=== PATIENT | male | born 1985 | race Caucasian/White ===

== ENCOUNTER 2018-11-12 14:11 | Inpatient (IN) | payer MEDICAID, SELFPAY ==
[2018-11-12 14:38] VITALS: BMI 31.6; BMI 31.7
[2018-11-12 15:00] VITALS: BP 154/97; PULSE 110; RESP 18; TEMP 37.1
--- NOTE | 2018-11-12 15:28 | HP.PCM_ITS ---
Problem List (1) Acute alcohol withdrawal Status: Acute (2) Alcohol abuse Status: Chronic (3) GERD (gastroesophageal reflux disease) Status: Chronic (4) Depression Status: Chronic History of Present Illness Date of Admission: 11/12/18 Chief Complaint: Patient came to the [facility] office requesting admission for alcohol abuse detoxification. The patient is a 33 year old M with past medical history as mentioned above presented to the [facility] office today requesting admission for medical stabilization for acute alcohol withdrawal. Patient has been heavily drinking for many many years. He is states that he drinks around 1 gallon of vodka every day and sometimes, he mixed it with beer. His last drink was 2 days ago. His presenting symptoms were severe bad hand tremors, restless and anxiety as well as persistent nausea and vomiting. He stopped drinking Monday and since then, he has been having rapidly increasing bilateral hand tremors, associated with restlessness and anxiety and without aggravating or relieving factors. He reported persistent nausea and vomiting since Monday and he could not keep any food or liquid down to his stomach. He denied abdominal pain. He mentioned that he bought a house few months ago and since then, he has been alone at house and he has been drinking more heavily. Around 1 week ago, he was taken to the hospital because he was intoxicated and lost his consciousness, was admitted for 18 hours and then was discharged home. He denied use of recreational drugs. He is afebrile, heart rate was around 110 and blood pressure was stable. He was a direct admission and there was no blood work done at this time. He is being admitted for acute alcohol withdrawal for medical stabilization. Past Medical History Past Medical History (Chronic Problems): Chronic Problems Alcohol abuse (Chronic) GERD (gastroesophageal reflux disease) (Chronic) Depression (Chronic) Allergies No Known Allergies Allergy (Verified 11/12/18 14:40) Home Medications: Ambulatory Orders Medication Instructions Recorded Azithromycin 250 mg PO BID 11/12/18 Escitalopram Oxalate [Lexapro] 10 mg PO DAILY 11/12/18 Levocetirizine Dihydrochloride 5 mg PO DINNER 11/12/18 [Xyzal] Loratadine [Claritin] 10 mg PO DAILY 11/12/18 Pantoprazole Sodium [Protonix] 40 mg PO DAILY 11/12/18 Ranitidine [Zantac] 300 mg PO BID 11/12/18 traZODone [Desyrel] 50 mg PO QHS PRN 11/12/18 Surgical History: no surgical history Psychiatric History: Depression Lives: Alone Smoking Status: Current some day smoker Tobacco Use: Chew Alcohol: Heavy Drugs: None - *Family History Maternal History Items: - - No family history of hypertension, diabetes or CAD. Paternal History Items: No pertinent history Review of Systems Constitutional: Reports: Anorexia, Malaise. Denies: Chills, Fever, Weakness, Fatigue Eyes: Denies: Blurred vision, Double vision, Drainage, Redness HEENT: Denies: Difficulty Hearing, Ear Pain, Eye Pain, Nasal Congestion, Sore Throat Cardiovascular: Denies: Chest Pain, Chest Pressure, Chest Tightness, Orthopnea, Paroxysmal Noc. Dyspnea, Syncope Respiratory: Reports: Cough. Denies: Hemoptysis, Pleuritic Pain, Shortness of Breath, Sputum production, Wheezing Gastrointestinal: Reports: Nausea, Vomiting. Denies: Abdominal Pain, Constipation, Hematochezia, Melena Genitourinary: Denies: Dysuria, Frequency, Hematuria Musculoskeletal: Denies: Arm Pain, Back Pain, Foot Pain Skin: Denies: Dryness, Rash Neurological: Reports: Tremor. Denies: Balance problems, Double vision, Change in Speech, Slurred speech, Confusion, Focal weakness, Incoordination, Numbness Psychiatric: Reports: Anxiety, Depression VTE Information - Inpt Only VTE Present on Admission: No VTE Mechan Device Prophylaxis: None VTE Pharm Prophylaxis ordered?: No Patient Problems: Active and Suspected Problems Acute alcohol withdrawal (Acute) - Physical Exam General: Alert, Oriented x3, Cooperative, - - Slightly anxious and restless. HEENT: Atraumatic, PERRLA, EOMI, Normocephalic Oral: Moist Mucosa, No Gingival or Mucosal Lesions/ Ulcerations Neck: Supple, No JVD, Negative Carotid Bruits, Trachea Midline, Thyroid Normal Size and Texture Lungs: Clear to auscultation, Normal air movement, No rhonchi, No wheeze, No rales Cardiovascular: Regular rate, Regular Rhythm, Normal S1, Normal S2, PMI Normal Abdomen: Bowel Sounds Present, Soft, Non Tender, Non-Distended, No Hepato- splenomegaly Extremities: No clubbing, No cyanosis Skin: No rashes, No breakdown Lymphatic: No Cervical, Supraclavicular, or Inguinal Adenopathy Neurological: Cranial nerves II-XII grossly intact, Motor Exam 5/5 strength throughout Psych/Mental Status: Normal Affect, Appropriate, Anxious, Alert and oriented to time, place, person, mood and affect Vital Signs Temp Pulse Resp BP 98.8 F 110 H 18 154/97 H 11/12/18 15:00 11/12/18 15:00 11/12/18 15:00 11/12/18 15:00 Weight: 240 lb Body Mass Index (BMI) 31.6 Assessment/Plan All Active Problems Acute alcohol withdrawal (Acute) This is a 33 years old male patient presented to the [facility] office requesting admission for medical stabilization for acute alcohol withdrawal. #1 acute alcohol withdrawal: Patient has been drinking heavily every day, 1 gallon for Daily for many years. Last drink was 2 days ago. At this time, he is slightly tachycardic, other vital signs are stable. [facility], stat CBC and CMP, blood alcohol level, urine drug screen, serum lipase, start [facility] protocol with tapering course of Ativan, folic acid and thiamine as well as vitamin supplement, as needed Bentyl, Tylenol, Vistaril, Imodium, methocarbamol Zofran and trazodone, will do chest x-ray because of hacking cough for more than a week to rule out aspiration pneumonia as patient has been losing his consciousness because of heavy drinking. #2 alcohol abuse: As mentioned above, patient has been drinking heavily for 2 many years, drinks at least 1 gallon of vodka daily in addition to mixing it with beers. Plan as above, blood work as above, [facility] protocol as above. #3 GERD: Continue Protonix. #4 depression: Continue Lexapro. #5 DVT prophylaxis: Low-risk patient, no prophylaxis indicated. Ambulate. This note was generated with [employer] dictation software. It may contain incorrect words, spelling, and punctuation that were not noted in checking the note before signing. Code Visit Inpatient E&M: 60304 Init Hosp L2
[2018-11-12] MEDS: Ondansetron ODT 4 MG Tablet PO (15:33)
[2018-11-12] MEDS: Dicyclomine 10 MG Capsule 20 MG PO ×2 (15:33→22:10)
[2018-11-12] MEDS: LORazepam 1 MG Tablet PO ×2 (15:33→20:38)
[2018-11-12] MEDS: Methocarbamol 750 MG Tablet PO (15:33)
--- NOTE | 2018-11-12 15:50 | RAD_ITS ---
STUDY: X-RAY CHEST REASON FOR EXAM: Male, 33 years old. Cough, chest pain. TECHNIQUE: PA and lateral views of the chest. COMPARISON: None. FINDINGS: Incidental note of an azygos lobe in the medial right apex, an anatomic variant. The lungs are otherwise clear and expanded. There is no demonstrated pleural abnormality. Normal size heart. Normal mediastinum and ashanti. Normal visualized pulmonary arteries. Normal visualized aortic arch and descending thoracic aorta. Normal visualized thoracic spine. Normal visualized ribs, clavicles, and shoulders. There is no demonstrated abnormality of the visualized soft tissue structures of the upper abdomen. RAD/Chest PA and Lateral IMPRESSION: Normal x-ray examination of the chest. Electronically Signed: Manjit Bhatt MD at 19:39 EST , Service support ,
[2018-11-12 15:59] LABS: Absolute Lymphocyte Count 0.96 X10^3/ul (0.83-4.51); Absolute Neutrophil Count 5.2 X10^3/uL (2.0-7.7); Basophil# 0.01 X10^3/uL; Basophil% 0.1 % (0-1); Eosinophil# 0.14 X10^3/uL; Eosinophils% 2.1 % (0-5); Hematocrit 42.8 % (40-54); Hemoglobin 15.5 g/dl (13.0-16.5); Lymphocyte # 0.96 X10^3/ul (4.0); Lymphocyte % 14.2 % (19-41); Mean Corp Hgb Conc 36.2 g/gl (32-36); Mean Corpuscular Hgb 31.8 pg (27.0-32.0); Mean Corpuscular Volume 87.9 fL (80-94); Mean Platelet Vol. 9.6 fl (6.2-12.0); Monocyte# 0.42 X10^3/uL; Monocyte% 6.2 % (0-10); Neutrophil # 5.19 X10^3/uL (2.7-7.7); Neutrophil % 77.1 % (47-70); Platelet Count 146 K/mm3 (150-450); RBC Distribution Width SD 39.8 fl (35.1-43.9); Red Blood Count 4.87 M/mm3 (4.6-6.2); White Blood Count 6.7 K/mm3 (4.4-11.0)
[2018-11-12 16:01] LABS: POSITIVE COUNT NO; POSITIVE DIFFERENTIAL NO; POSITIVE MORPHOLOGY NO
[2018-11-12 16:14] LABS: Prothrombin Time (Protime)PT. 13.2 SECONDS (11.7-14.9)
[2018-11-12 16:29] LABS: Alcohol, Blood (Medical)-Serum < 3.0 mg/dL
[2018-11-12 16:32] LABS: ALB/GLOB Ratio 1.3 RATIO (0.9-2.4); AST(SGOT) 77 U/L (15-37); Alanine Aminotransfer ALT/SGPT 145 U/L (16-61); Albumin, Serum 4.7 g/dL (3.2-5.0); Alkaline Phosphatase 125 U/L (45-117); Anion Gap 10 (5-15); BUN 7 mg/dL (7-18); BUN/Creat Ratio 7.4 RATIO (10-20); Calcium,Total 9.1 mg/dL (8.5-10.1); Chloride 98 mmol/L (98-107); Creatinine, Serum 0.95 mg/dL (0.70-1.30); EST Glomerular Filtration Rate 96 mL/min (>60); Est Glom Filt Rate - Afr Amer 117 mL/min (>60); Estimated Creatinine Clearance 123.82 ml/min; Globulin 3.7 g/dL (2.2-4.2); Glucose 100 mg/dL (74-106); Lipase 196 U/L (73-393); Potassium 3.5 mmol/L (3.5-5.1); Protein, Total 8.4 g/dL (6.4-8.2); Sodium Level 137 mmol/L (136-145)
[2018-11-12 17:49] VITALS: PULSE 76
[2018-11-12] MEDS: Famotidine 20 MG Tablet 40 MG PO (18:15)
[2018-11-12 18:38] VITALS: BP 124/80; PULSE 86; RESP 18; TEMP 37.1
[2018-11-12 18:39] LABS: Amphetamine Urine VISTA NEGATIVE (<1000 ng/mL); Barbiturate Urine VISTA NEGATIVE (< 200 ng/mL); Benzodiazepine Urine VISTA NEGATIVE (< 200 ng/mL); Cocaine Urine VISTA NEGATIVE (< 300 ng/mL); Ecstacy Urine VISTA NEGATIVE (< 500 ng/mL); Methadone Urine VISTA NEGATIVE (< 300 ng/mL); PCP Urine VISTA NEGATIVE (< 25 ng/mL); THC Urine VISTA NEGATIVE (< 50 ng/mL); Vista UDS pH Range 6
[2018-11-12 19:57] VITALS: PULSE 66
[2018-11-12 21:01] VITALS: BP 152/103; PULSE 75; RESP 14; TEMP 37.3; O2SAT 98
[2018-11-13] VITALS (10 sets, daily range): BP systolic 133–146; BP diastolic 92–101; PULSE 57–103; RESP 16–18; TEMP 36.3–36.9; O2SAT 98–100
[2018-11-13] MEDS: LORazepam 1 MG Tablet PO ×6 (00:01→23:50)
[2018-11-13] MEDS: Folic Acid 1 MG Tablet PO (09:21)
[2018-11-13] MEDS: Multivitamins,Therapeutic Tablet 1 TABLET PO (09:21)
[2018-11-13] MEDS: Famotidine 20 MG Tablet 40 MG PO ×2 (09:23→23:50)
[2018-11-13] MEDS: Thiamine Hydrochloride 100 MG Tablet PO (09:23)
[2018-11-13] MEDS: Loratadine 10 MG Tablet PO (09:23)
[2018-11-13] MEDS: Escitalopram Oxalate 10 MG Tablet PO (09:23)
[2018-11-13] MEDS: Pantoprazole Sodium 40 MG Tablet PO (09:31)
--- NOTE | 2018-11-13 10:04 | PCM.PN.HOSP ---
Patient Problems: Active and Suspected Problems Acute alcohol withdrawal (Acute) Subjective: Patient seen and examined. She was admitted complaint of alcohol abuse and is being managed for acute alcohol withdrawal. He has no complaints this morning. He did have some visual and tactile hallucinations overnight but is much better this morning. His tremors have also improved. Denies any fever chills, cough or chest pain, palpitations, abdominal pain, diarrhea vomiting. Review of systems otherwise negative. CIWA score this morning was 5. Vitals/I&O's: Vital Signs Temp Pulse Resp BP Pulse Ox 98.5 F 103 H 18 133/101 H 98 11/13/18 09:06 11/13/18 09:06 11/13/18 09:06 11/13/18 09:06 11/13/18 09:05 Oxygen Delivery Method Room Air Weight: 240 lb Body Mass Index (BMI) 31.6 Intake and Output for Last 24 Hours 11/11/18 11/12/18 11/13/18 23:59 23:59 23:59 Intake Total 200 / 200 560 / 560 Balance 200 / 200 560 / 560 General: Alert, Oriented x3, Cooperative, No apparent distress HEENT: Atraumatic, PERRLA, EOMI, Normocephalic Oral: Moist Mucosa Neck: Supple, No JVD, Negative Carotid Bruits Lungs: Clear to auscultation, Normal air movement, No rhonchi, No wheeze, No rales Cardiovascular: Regular rate, Regular Rhythm, Normal S1, Normal S2, No murmurs Abdomen: Bowel Sounds Present, Soft, Non Tender, Non-Distended, No Hepato-splenomegaly Extremities: No clubbing, No cyanosis, No edema, Capillary Refill Less than 3 Seconds Skin: No rashes, No breakdown Musculoskeletal: No Tenderness to Palpation of Joints or Extremities Lymphatic: No Cervical, Supraclavicular, or Inguinal Adenopathy Neurological: Cranial nerves II-XII grossly intact, Neuro grossly intact, Motor Exam 5/5 strength throughout Psych/Mental Status: Normal Affect, Appropriate, Alert and oriented to time, place, person, mood and affect Laboratory Results 11/12/18 15:38: WBC 6.7, RBC 4.87, Hgb 15.5, Hct 42.8, MCV 87.9, MCH 31.8, MCHC 36.2 H, RDW 13.0, RDW Differential 39.8, Plt Count 146 L, MPV 9.6, Immature Gran % (Auto) 0.300, Neut % (Auto) 77.1 H, Lymph % (Auto) 14.2 L, [place] % (Auto) 6.2, Eos % (Auto) 2.1, Baso % (Auto) 0.1, Absolute Neuts (auto) 5.2, Absolute Lymphs (auto) 0.96, Total Counted Not Reportable 11/12/18 15:38: PT 13.2, INR 1.0 11/12/18 15:38: Sodium 137, Potassium 3.5, Chloride 98, Carbon Dioxide 29.0, Anion Gap 10, BUN 7, Creatinine 0.95, Estim Creat Clear Calc 123.82, Est GFR (MDRD) Af Amer 117, Est GFR (MDRD) Non-Af 96, BUN/Creatinine Ratio 7.4 L, Glucose 100, Calcium 9.1, Total Bilirubin 1.70 H, AST 77 H, ALT 145 H, Alkaline Phosphatase 125 H, Total Protein 8.4 H, Albumin 4.7, Globulin 3.7, Albumin/Globulin Ratio 1.3, Lipase 196 11/12/18 15:38: Ethyl Alcohol < 3.0 11/12/18 17:50: Urine Opiates Screen NEGATIVE, Urine Methadone Screen NEGATIVE, Ur Barbiturates Screen NEGATIVE, Ur Phencyclidine Scrn NEGATIVE, Ur Amphetamines Screen NEGATIVE, U Methamphetamin-MDMA NEGATIVE, U Benzodiazepines Scrn NEGATIVE, Urine Cocaine Screen NEGATIVE, U Cannabinoids Screen NEGATIVE, Ur Drug Screen Comment Current Medications Acetaminophen (Tylenol) 500 mg PO Q4H PRN PRN PRN Reason: Temp > 100.4 F Dicyclomine HCl (Bentyl) 20 mg PO Q6H PRN PRN PRN Reason: abdominal discomfort Last Admin: 11/12/18 22:10 Dose: 20 mg Escitalopram Oxalate (Lexapro) 10 mg PO DAILY [facility] Last Admin: 11/13/18 09:23 Dose: 10 mg Famotidine (Pepcid) 40 mg PO BID [facility] Last Admin: 11/13/18 09:23 Dose: 40 mg [facility] Last Admin: 11/13/18 09:21 Dose: 1 mg Hydroxyzine Pamoate (Vistaril Pamoate Capsule) 50 mg PO Q6H PRN PRN PRN Reason: Mild Anxiety (score 1/3) Loperamide HCl (Imodium) 2 - 4 mg PO UD PRN PRN Reason: LOOSE STOOLS Loratadine (Claritin) 10 mg PO DAILY [facility] Last Admin: 11/13/18 09:23 Dose: 10 mg Lorazepam (Ativan) 1 mg PO Q4H [facility]; Taper Stop: 11/15/18 19:59 Last Admin: 11/13/18 09:23 Dose: 1 mg Methocarbamol (Methocarbamol) 750 mg PO Q6H PRN PRN PRN Reason: Muscle Aches Last Admin: 11/12/18 15:33 Dose: 750 mg Multivitamins (Multivitamin) [facility] Last Admin: 11/13/18 09:21 Dose: 1 tablet Nicotine (Nicoderm Cq (Pbkc)) 21 mg TRANSDERM. DAILY [facility] Last Admin: 11/13/18 09:21 Dose: 21 mg Ondansetron HCl (Zofran Odt) 4 mg PO Q6H PRN PRN PRN Reason: NAUSEA Last Admin: 11/12/18 15:33 Dose: 4 mg Pantoprazole Sodium (Protonix) 40 mg PO DAILY [facility] Last Admin: 11/13/18 09:31 Dose: 40 mg Thiamine HCl (Vitamin B1) [facility] Last Admin: 11/13/18 09:23 Dose: 100 mg Trazodone HCl (Desyrel) 50 mg PO QHS PRN PRN Reason: SLEEP Medical Necessity - Tobacco Use Smoking Status: Current some day smoker Tobacco Use: Chew Assessment/Plan All Active Problems Acute alcohol withdrawal (Acute) 1. Acute alcohol withdrawal Drinks about a gallon of vodka daily for many years. Last drink was 2 days prior to presentation. On alcohol withdrawal protocol with Ativan per [facility] protocol. On folic acid and thiamine as well as multivitamin. 2. GERD: Protonix 3. Depression: On Lexapro 4. Elevated liver enzymes. Total bilirubin was 1.7 with AST/ALT/ALP of 77/145/125. Likely due to alcohol abuse. Will monitor. 5. Thrombocytopenia: Platelets of 146. There is also likely due to alcohol abuse. Will monitor. DVT prophylaxis: Encourage ambulation. Code Visit Inpatient E&M: 16150 Subs Hosp L3
--- NOTE | 2018-11-13 10:09 | PN_ITS ---
Patient Problems: Active and Suspected Problems Acute alcohol withdrawal (Acute) Subjective: Patient seen and examined. She was admitted complaint of alcohol abuse and is being managed for acute alcohol withdrawal. He has no complaints this morning. He did have some visual and tactile hallucinations overnight but is much better this morning. His tremors have also improved. Denies any fever chills, cough or chest pain, palpitations, abdominal pain, diarrhea vomiting. Review of systems otherwise negative. CIWA score this morning was 5. Vitals/I&O's: Vital Signs Temp Pulse Resp BP Pulse Ox 98.5 F 103 H 18 133/101 H 98 11/13/18 09:06 11/13/18 09:06 11/13/18 09:06 11/13/18 09:06 11/13/18 09:05 Oxygen Delivery Method Room Air Weight: 240 lb Body Mass Index (BMI) 31.6 Intake and Output for Last 24 Hours 11/11/18 11/12/18 11/13/18 23:59 23:59 23:59 Intake Total 200 / 200 560 / 560 Balance 200 / 200 560 / 560 General: Alert, Oriented x3, Cooperative, No apparent distress HEENT: Atraumatic, PERRLA, EOMI, Normocephalic Oral: Moist Mucosa Neck: Supple, No JVD, Negative Carotid Bruits Lungs: Clear to auscultation, Normal air movement, No rhonchi, No wheeze, No rales Cardiovascular: Regular rate, Regular Rhythm, Normal S1, Normal S2, No murmurs Abdomen: Bowel Sounds Present, Soft, Non Tender, Non-Distended, No Hepato- splenomegaly Extremities: No clubbing, No cyanosis, No edema, Capillary Refill Less than 3 Seconds Skin: No rashes, No breakdown Musculoskeletal: No Tenderness to Palpation of Joints or Extremities Lymphatic: No Cervical, Supraclavicular, or Inguinal Adenopathy Neurological: Cranial nerves II-XII grossly intact, Neuro grossly intact, Motor Exam 5/5 strength throughout Psych/Mental Status: Normal Affect, Appropriate, Alert and oriented to time, place, person, mood and affect Laboratory Results 11/12/18 15:38: WBC 6.7, RBC 4.87, Hgb 15.5, Hct 42.8, MCV 87.9, MCH 31.8, MCHC 36.2 H, RDW 13.0, RDW Differential 39.8, Plt Count 146 L, MPV 9.6, Immature Gran % (Auto) 0.300, Neut % (Auto) 77.1 H, Lymph % (Auto) 14.2 L, [place] % (Auto) 6.2, Eos % (Auto) 2.1, Baso % (Auto) 0.1, Absolute Neuts (auto) 5.2, Absolute Lymphs (auto) 0.96, Total Counted Not Reportable 11/12/18 15:38: PT 13.2, INR 1.0 11/12/18 15:38: Sodium 137, Potassium 3.5, Chloride 98, Carbon Dioxide 29.0, Anion Gap 10, BUN 7, Creatinine 0.95, Estim Creat Clear Calc 123.82, Est GFR (MDRD) Af Amer 117, Est GFR (MDRD) Non-Af 96, BUN/Creatinine Ratio 7.4 L, Glucose 100, Calcium 9.1, Total Bilirubin 1.70 H, AST 77 H, ALT 145 H, Alkaline Phosphatase 125 H, Total Protein 8.4 H, Albumin 4.7, Globulin 3.7, Albumin/Globulin Ratio 1.3, Lipase 196 11/12/18 15:38: Ethyl Alcohol < 3.0 11/12/18 17:50: Urine Opiates Screen NEGATIVE, Urine Methadone Screen NEGATIVE, Ur Barbiturates Screen NEGATIVE, Ur Phencyclidine Scrn NEGATIVE, Ur Amphetamines Screen NEGATIVE, U Methamphetamin-MDMA NEGATIVE, U Benzodiazepines Scrn NEGATIVE, Urine Cocaine Screen NEGATIVE, U Cannabinoids Screen NEGATIVE, Ur Drug Screen Comment Current Medications Acetaminophen (Tylenol) 500 mg PO Q4H PRN PRN PRN Reason: Temp > 100.4 F Dicyclomine HCl (Bentyl) 20 mg PO Q6H PRN PRN PRN Reason: abdominal discomfort Last Admin: 11/12/18 22:10 Dose: 20 mg Escitalopram Oxalate (Lexapro) 10 mg PO DAILY [facility] Last Admin: 11/13/18 09:23 Dose: 10 mg Famotidine (Pepcid) 40 mg PO BID [facility] Last Admin: 11/13/18 09:23 Dose: 40 mg [facility]) [facility] Last Admin: 11/13/18 09:21 Dose: 1 mg Hydroxyzine Pamoate (Vistaril Pamoate Capsule) 50 mg PO Q6H PRN PRN PRN Reason: Mild Anxiety (score 1/3) Loperamide HCl (Imodium) 2 - 4 mg PO UD PRN PRN Reason: LOOSE STOOLS Loratadine (Claritin) 10 mg PO DAILY [facility] Last Admin: 11/13/18 09:23 Dose: 10 mg Lorazepam (Ativan) 1 mg PO Q4H [facility]; Taper Stop: 11/15/18 19:59 Last Admin: 11/13/18 09:23 Dose: 1 mg Methocarbamol (Methocarbamol) 750 mg PO Q6H PRN PRN PRN Reason: Muscle Aches Last Admin: 11/12/18 15:33 Dose: 750 mg Multivitamins (Multivitamin) [facility] Last Admin: 11/13/18 09:21 Dose: 1 tablet Nicotine (Nicoderm Cq (Pbkc)) 21 mg TRANSDERM. DAILY [facility] Last Admin: 11/13/18 09:21 Dose: 21 mg Ondansetron HCl (Zofran Odt) 4 mg PO Q6H PRN PRN PRN Reason: NAUSEA Last Admin: 11/12/18 15:33 Dose: 4 mg Pantoprazole Sodium (Protonix) 40 mg PO DAILY [facility] Last Admin: 11/13/18 09:31 Dose: 40 mg Thiamine HCl (Vitamin B1) [facility] Last Admin: 11/13/18 09:23 Dose: 100 mg Trazodone HCl (Desyrel) 50 mg PO QHS PRN PRN Reason: SLEEP Medical Necessity - Tobacco Use Smoking Status: Current some day smoker Tobacco Use: Chew Assessment/Plan All Active Problems Acute alcohol withdrawal (Acute) 1. Acute alcohol withdrawal * Drinks about a gallon of vodka daily for many years. Last drink was 2 days prior to presentation. * On alcohol withdrawal protocol with Ativan per [facility] protocol. * On folic acid and thiamine as well as multivitamin. * 2. GERD: Protonix 3. Depression: On Lexapro 4. Elevated liver enzymes. * Total bilirubin was 1.7 with AST/ALT/ALP of 77/145/125. * Likely due to alcohol abuse. * Will monitor. 5. Thrombocytopenia: * Platelets of 146. * There is also likely due to alcohol abuse. * Will monitor. DVT prophylaxis: Encourage ambulation. Code Visit Inpatient E&M: 23745 Subs Hosp L3
[2018-11-14] VITALS (7 sets, daily range): BP systolic 130–142; BP diastolic 91–97; PULSE 75–100; RESP 14–18; TEMP 36.7–36.8; O2SAT 95–97
[2018-11-14] MEDS: Methocarbamol 750 MG Tablet PO ×4 (03:20→22:31)
[2018-11-14] MEDS: LORazepam 1 MG Tablet PO ×3 (06:16→19:55)
[2018-11-14] MEDS: Escitalopram Oxalate 10 MG Tablet PO (09:31)
[2018-11-14] MEDS: Famotidine 20 MG Tablet 40 MG PO ×2 (09:31→22:31)
[2018-11-14] MEDS: Thiamine Hydrochloride 100 MG Tablet PO (09:32)
[2018-11-14] MEDS: Pantoprazole Sodium 40 MG Tablet PO (09:32)
[2018-11-14] MEDS: Loratadine 10 MG Tablet PO (09:32)
[2018-11-14] MEDS: Folic Acid 1 MG Tablet PO (09:32)
[2018-11-14] MEDS: Multivitamins,Therapeutic Tablet 1 TABLET PO (09:33)
[2018-11-14] MEDS: hydrOXYzine PAM 25 MG Capsule 50 MG PO ×2 (09:37→22:42)
--- NOTE | 2018-11-14 10:51 | PN_ITS ---
Patient Problems: Active and Suspected Problems Acute alcohol withdrawal (Acute) Subjective: Patient seen and examined. He had no complaints and had a good night. He denies any fever or chills, palpitations or dizziness, abdominal pain, diarrhea vomiting. Review of systems otherwise negative. Labs and vitals reviewed. Vitals/I&O's: Vital Signs Temp Pulse Resp BP Pulse Ox 98.1 F 87 18 142/95 H 97 11/14/18 09:35 11/14/18 09:35 11/14/18 09:35 11/14/18 09:35 11/14/18 09:35 Oxygen Delivery Method Room Air Weight: 240 lb Body Mass Index (BMI) 31.6 Intake and Output for Last 24 Hours 11/12/18 11/13/18 11/14/18 23:59 23:59 23:59 Intake Total 200 / 200 1860 / 1860 720 / 720 Balance 200 / 200 1860 / 1860 720 / 720 General: Alert, Oriented x3, Cooperative, No apparent distress HEENT: Atraumatic, PERRLA, EOMI, Normocephalic Oral: Moist Mucosa Neck: Supple, No JVD, Negative Carotid Bruits Lungs: Clear to auscultation, Normal air movement, No rhonchi, No wheeze, No rales Cardiovascular: Regular rate, Regular Rhythm, Normal S1, Normal S2, No murmurs Abdomen: Bowel Sounds Present, Soft, Non Tender, Non-Distended, No Hepato- splenomegaly Extremities: No clubbing, No cyanosis, No edema, Capillary Refill Less than 3 Seconds Skin: No rashes, No breakdown Musculoskeletal: No Tenderness to Palpation of Joints or Extremities Lymphatic: No Cervical, Supraclavicular, or Inguinal Adenopathy Neurological: Cranial nerves II-XII grossly intact, Neuro grossly intact, Motor Exam 5/5 strength throughout Psych/Mental Status: Normal Affect, Appropriate, Alert and oriented to time, place, person, mood and affect Current Medications Acetaminophen (Tylenol) 500 mg PO Q4H PRN PRN PRN Reason: Temp > 100.4 F Dicyclomine HCl (Bentyl) 20 mg PO Q6H PRN PRN PRN Reason: abdominal discomfort Last Admin: 11/12/18 22:10 Dose: 20 mg Escitalopram Oxalate (Lexapro) 10 mg PO DAILY [facility] Last Admin: 11/14/18 09:31 Dose: 10 mg Famotidine (Pepcid) 40 mg PO BID [facility] Last Admin: 11/14/18 09:31 Dose: 40 mg [facility]olic [facility] ([facility]) [facility] Last Admin: 11/14/18 09:32 Dose: 1 mg Hydroxyzine Pamoate (Vistaril Pamoate Capsule) 50 mg PO Q6H PRN PRN PRN Reason: Mild Anxiety (score 1/3) Last Admin: 11/14/18 09:37 Dose: 50 mg Loperamide HCl (Imodium) 2 - 4 mg PO UD PRN PRN Reason: LOOSE STOOLS Loratadine (Claritin) 10 mg PO DAILY [facility] Last Admin: 11/14/18 09:32 Dose: 10 mg Lorazepam (Ativan) 1 mg PO Q6H [facility]; Taper Stop: 11/15/18 19:59 Last Admin: 11/14/18 06:16 Dose: 1 mg Methocarbamol (Methocarbamol) 750 mg PO Q6H PRN PRN PRN Reason: Muscle Aches Last Admin: 11/14/18 09:36 Dose: 750 mg Multivitamins ([facility]itamin) [facility] Last Admin: 11/14/18 09:33 Dose: 1 tablet Nicotine (Nicoderm Cq (Pbkc)) 21 mg TRANSDERM. DAILY [facility] Last Admin: 11/14/18 09:33 Dose: 21 mg Ondansetron HCl (Zofran Odt) 4 mg PO Q6H PRN PRN PRN Reason: NAUSEA Last Admin: 11/12/18 15:33 Dose: 4 mg Pantoprazole Sodium (Protonix) 40 mg PO DAILY [facility] Last Admin: 11/14/18 09:32 Dose: 40 mg Thiamine HCl (Vitamin B1) [facility] Last Admin: 11/14/18 09:32 Dose: 100 mg Trazodone HCl (Desyrel) 50 mg PO QHS PRN PRN Reason: SLEEP Medical Necessity - Tobacco Use Smoking Status: Current some day smoker Tobacco Use: Chew Assessment/Plan All Active Problems Acute alcohol withdrawal (Acute) 1. Acute alcohol withdrawal * Drinks about a gallon of vodka daily for many years. * On alcohol withdrawal protocol with Ativan per [facility] protocol. * On folic acid and thiamine as well as multivitamin. * 2. Elevated blood pressure: * Blood pressure was in the 150s on admission but it was thought to be due to alcohol withdrawal. * Went down to 120 systolic but has been in the 130s and 140s since. * Has no history of hypertension. * Will monitor and to follow-up with primary care doctor on outpatient basis for start of medication if blood pressure still elevated in the office. * 3. GERD: on Protonix 4. Depression: On Lexapro 5. Elevated liver enzymes. * Total bilirubin was 1.7 with AST/ALT/ALP of 77/145/125. * Likely due to alcohol abuse. * Will monitor. 6. Thrombocytopenia: * Platelets of 146. * There is also likely due to alcohol abuse. * Will monitor. DVT prophylaxis: Encourage ambulation. Code Visit Inpatient E&M: 06812 Subs Hosp L2
[2018-11-14] MEDS: guaiFENesin 600 MG Tablet PO ×2 (12:18→22:31)
[2018-11-14] MEDS: Acetaminophen 500 MG Tablet PO (20:01)
[2018-11-15] MEDS: LORazepam 1 MG Tablet PO ×2 (04:23→11:24)
[2018-11-15 07:41] VITALS: BP 133/94; PULSE 63; RESP 16; TEMP 36.8; O2SAT 98
[2018-11-15] MEDS: Folic Acid 1 MG Tablet PO (07:55)
[2018-11-15] MEDS: Multivitamins,Therapeutic Tablet 1 TABLET PO (07:55)
[2018-11-15] MEDS: Thiamine Hydrochloride 100 MG Tablet PO (07:55)
--- NOTE | 2018-11-15 10:19 | DCINST_ITS ---
- Discharge Diagnoses Current Active Problems: Current Active and Chronic Problems Acute alcohol withdrawal (Acute) Alcohol abuse (Chronic) GERD (gastroesophageal reflux disease) (Chronic) Depression (Chronic) You will use the following diet at home:: No restrictions Your food should be the consistency of: Regular Your liquids should be the consistency of: Regular/Thin Discharge Activity: Return to Normal Activity Weight Bearing Status: Weight bearing as tolerated Instructions: Disulfiram Oral tablet Allergies/Adverse Reactions: Allergies No Known Allergies Allergy (Verified 11/12/18 14:40) Medications to take at Discharge Escitalopram Oxalate [Lexapro] 10 mg PO DAILY 11/12/18 Levocetirizine Dihydrochloride [Xyzal] 5 mg PO DINNER 11/12/18 Loratadine [Claritin] 10 mg PO DAILY 11/12/18 Pantoprazole Sodium [Protonix] 40 mg PO DAILY 11/12/18 Ranitidine [Zantac] 300 mg PO BID 11/12/18 traZODone [Desyrel] 50 mg PO QHS PRN 11/12/18 Disulfiram [Antabuse] 250 mg PO DAILY #14 tab 11/15/18 Guaifenesin [Mucinex] 600 mg PO Q12H PRN PRN #30 tab.er.12h 11/15/18 The following prescriptions were given: Guaifenesin [Mucinex] 600 mg PO Q12H PRN PRN #30 tab.er.12h PRN Reason: Chest Congestion/Secretions Disulfiram [Antabuse] 250 mg PO DAILY #14 tab Primary Care Physician: Ganga Kuhn,Out of [Primary Care Provider] - Please follow up with your Primary Care Physician in: follow with your PCP within 1-2 weeks Test Results: Test results from this visit will be discussed in further detail at your follow- up appointment, if applicable. Proposed Discharge Date: 11/15/18
--- NOTE | 2018-11-15 10:19 | PCM.DC.SUM ---
Discharge Date and Diagnosis - Problem List Patient Problems: Active and Suspected Problems Acute alcohol withdrawal (Acute) Date of Admission: 11/12/18 Date of Discharge: 11/15/18 - Primary Discharge Diagnosis Active and Suspected Problems Acute alcohol withdrawal (Acute) - Secondary Discharge Diagnosis Chronic Problems Alcohol abuse (Chronic) GERD (gastroesophageal reflux disease) (Chronic) Depression (Chronic) Hospital Course and Treatment Operations: None Procedures: None Summary of Care Provided: Patient is a [age]-year-old male with a past medical history of alcohol abuse, GERD and depression. Was admitted to the [facility] for alcohol withdrawal. Patient had been abusing alcohol for many years and drinks about a gallon of vodka every day which is sometimes mixed with beer. His last drink was 2 days prior to presentation. He had severe tremors, restlessness and anxiety on admission with nausea and vomiting. He was admitted and managed for acute alcohol withdrawal and was placed on the Ativan withdrawal protocol per [facility] protocol. Patient's restlessness and agitation improved and CIWA score was monitored and it improved. He remained stable and was discharged home on 11/15/2018 with a prescription for Antabuse for 2 weeks. He is to follow-up with his primary care doctor and the [facility] for outpatient rehab. Patient seen and examined prior to discharge. He had no complaints and felt well. He denied any fever, any chills, any cough or chest pain, any cough or shortness of breath, abdominal pain, diarrhea vomiting. Review of systems otherwise negative. Labs and vitals reviewed. Home medications reviewed and reconciled. o/e: General: Alert, Oriented x3, Cooperative, No apparent distress HEENT: Atraumatic, PERRLA, EOMI, Normocephalic Oral: Moist Mucosa Neck: Supple, No JVD, Negative Carotid Bruits Lungs: Clear to auscultation, Normal air movement, No rhonchi, No wheeze, No rales Cardiovascular: Regular rate, Regular Rhythm, Normal S1, Normal S2, No murmurs Abdomen: Bowel Sounds Present, Soft, Non Tender, Non-Distended, No Hepato-splenomegaly Extremities: No clubbing, No cyanosis, No edema, Capillary Refill Less than 3 Seconds Skin: No rashes, No breakdown Musculoskeletal: No Tenderness to Palpation of Joints or Extremities Lymphatic: No Cervical, Supraclavicular, or Inguinal Adenopathy Neurological: Cranial nerves II-XII grossly intact, Neuro grossly intact, Motor Exam 5/5 strength throughout Psych/Mental Status: Normal Affect, Appropriate, Alert and oriented to time, place, person, mood and affect Patient Problems: Active and Suspected Problems Acute alcohol withdrawal (Acute) - Physical Exam Vital Signs Temp Pulse Resp BP Pulse Ox 98.2 F 63 16 133/94 H 98 11/15/18 07:41 11/15/18 07:41 11/15/18 07:41 11/15/18 07:41 11/15/18 07:41 Oxygen Delivery Method Room Air Weight: 239 lb 13.807 oz Body Mass Index (BMI) 31.6 Intake and Output for Last 24 Hours 11/13/18 11/14/18 11/15/18 23:59 23:59 23:59 Intake Total 1860 / 1860 1520 / 1520 360 / 360 Balance 1860 / 1860 1520 / 1520 360 / 360 Discharge Diet: No Restrictions Discharge Activity: Return to Normal Activity Weight Bearing Status: Weight bearing as tolerated Home Medications: Medications to take at Discharge Escitalopram Oxalate [Lexapro] 10 mg PO DAILY 11/12/18 Levocetirizine Dihydrochloride [Xyzal] 5 mg PO DINNER 11/12/18 Loratadine [Claritin] 10 mg PO DAILY 11/12/18 Pantoprazole Sodium [Protonix] 40 mg PO DAILY 11/12/18 Ranitidine [Zantac] 300 mg PO BID 11/12/18 traZODone [Desyrel] 50 mg PO QHS PRN 11/12/18 Disulfiram [Antabuse] 250 mg PO DAILY #14 tab 11/15/18 Guaifenesin [Mucinex] 600 mg PO Q12H PRN PRN #30 tab.er.12h 11/15/18 Following Prescrptions Were Given to Patient: Guaifenesin [Mucinex] 600 mg PO Q12H PRN PRN #30 tab.er.12h PRN Reason: Chest Congestion/Secretions Disulfiram [Antabuse] 250 mg PO DAILY #14 tab Primary Care Physician: Ganga Kuhn,Out of [Primary Care Provider] - Please follow up with your Primary Care Physician in: follow with your PCP within 1-2 weeks Patient Instructions: Disulfiram Oral tablet Disposition: Home Minutes spent on discharge:: 37 Patient Condition:: Stable Medical Necessity - Tobacco Use Smoking Status: Current some day smoker Tobacco Use: Chew Meaningful Use Info Meaningful Use Diagnoses (Choose all that apply): None applicable Code Visit Inpatient E&M: 16658 Disch Hosp
[2018-11-15] MEDS: Loratadine 10 MG Tablet PO (11:12)
[2018-11-15] MEDS: Famotidine 20 MG Tablet 40 MG PO (11:15)
[2018-11-15] MEDS: Pantoprazole Sodium 40 MG Tablet PO (11:16)
[2018-11-15] MEDS: Escitalopram Oxalate 10 MG Tablet PO (11:16)
[2018-11-15] MEDS: guaiFENesin 600 MG Tablet PO (11:16)
--- OUTSIDE RECORDS SUMMARY | 2019-01-15 02:31 | XMS RPT_ITS | Summary of Care ---
:1985 Author Organization [facility] Address [address] [place] [address] Phone Care Team Providers Name Role Phone Edmund Johnson Primary Care Provider Reason for Visit Reason Comments Cough Pt. has had cough for 1 Wek. Nasal congestion. Denies pain. Pt. is intoxicated at this time. Encounter Details Date Type Department Care Team Description 11/07/2018 Emergency [facility] Emergency Medicine [address] [place], [place] [id number] Allergies No Known Allergiesas of this encounter Medications Prescription Sig. Disp. Refills Start Date End Date Status traZODone 50 MG Tab TAKE 1 TABLET 06/27/2017 Active (50 MG TOTAL) BY MOUTH NIGHTLY NEEDED FOR SLEEP. ranitidine 300 MG Tab TAKE 1 TABLET 06/27/2017 Active BY MOUTH TWICE A DAY IN AM AND AT BEDTIME pantoprazole 40 MG Tab TAKE 1 TABLET 06/27/[address] BY MOUTH EVERY DAY BEFORE BIGGEST MEAL montelukast 10 MG Tab TAKE 1 (ONE) 07/07/2017 Active TABLET (10 MG TOTAL) BY MOUTH NIGHTLY. Levocetirizine TAKE 1 TABLET 06/27/2017 Active Dihydrochloride 5 MG Tab (5 MG TOTAL) BY MOUTH EVERY EVENING. PROCTOSOL HC 2.5 % Cream INSERT INTO THE 2 06/29/2017 Active RECTUM 2 (TWO) TIMES A DAY. escitalopram 10 MG Tab TAKE 1 TABLET 11 06/27/2017 Active (10 MG TOTAL) BY MOUTH DAILY. NORTRIPTYLINE 10 MG Cap TAKE 1 CAPSULE 30 capsule 1 10/19/2017 Active capsule BY MOUTH AT BEDTIME. as of this encounter Active Problems Problem Noted Date Laryngopharyngeal reflux (LPR) 07/17/2017 Overview: Added automatically from request for surgery [id number] Social History Tobacco Use Types Packs/Day Years Used Date Never Smoker Smokeless Tobacco: Current User Chew Alcohol Use Drinks/Week oz/Week Comments Yes a 5th of vodka daily Sex Assigned at Date Recorded Not on file as of this encounter Last Filed Vital Signs Vital Sign Reading Time Taken Blood Pressure 128/88 11/07/2018 8:03 PM EST Pulse 110 11/07/2018 8:03 PM EST Temperature 37 ??C (98.6 ??F) 11/07/2018 8:03 PM EST Respiratory Rate 18 11/07/2018 8:03 PM EST Oxygen Saturation 94% 11/07/2018 8:03 PM EST Inhaled Oxygen Concentration - - Weight - - Height 185.4 cm (6' 1) 11/07/2018 8:03 PM EST Body Mass Index - - in this encounter Discharge Instructions Cuba Gavin PA - 11/07/2018Continue your usual medications at the usual doses. Tylenol/Ibuprofen/Aleve for fever or pain. No more than 4000 mg of Tylenol or 2400 mg of Ibuprofen (Advil, Motrin) in a 24 hour period. OTC cough medication if it is helpful. The following attachments cannot be sent through Care Everywhere.Cough, Chronic, Uncertain Cause (Adult) (Kazakh)in this encounter Plan of Treatment Health Maintenance Due Date Last Done Comments HIV SCREENING DISCUSSION 1997 TETANUS 2002 TDAP (ADULT) 2003 INFLUENZA VACCINE (#1) 2018 as of this encounter Procedures Procedure Name Priority Date/Time Associated Diagnosis Comments XR CHEST PA AND STAT 11/07/2018 8:20 PM Results for this LATERAL EST procedure are in the results section. in this encounter Results XR CHEST PA AND LATERAL (11/07/2018 8:20 PM) Impressions Performed At Impression:?No acute findings. RADIOLOGY Narrative Performed At XR CHEST PA AND LATERAL RADIOLOGY 11/07/2018 8:17 PM EST Indication: cough Technique:?Routine radiographs of the chest were obtained. Comparison:?None. Findings:?The lungs are adequately inflated.?No acute rib fractures, pneumothorax or mediastinal shift.?No consolidation, edema, or effusion.? Heart is normal in size and contour. Procedure Note User, Interfaces - 11/07/2018 8:32 PM EST XR CHEST PA AND LATERAL 11/07/2018 8:17 PM EST Indication: cough Technique: Routine radiographs of the chest were obtained. Comparison: None. Findings: The lungs are adequately inflated. No acute rib fractures, pneumothorax or mediastinal shift. No consolidation, edema, or effusion. Heart is normal in size and contour. IMPRESSION Impression: No acute findings. Performing Organization Address City/State/Zipcode Phone Number RADIOLOGY in this encounter Visit Diagnoses Diagnosis Cough - Primary
--- OUTSIDE RECORDS SUMMARY | 2019-01-15 02:31 | XMS RPT_ITS | Summary of Care ---
:1985 Author Organization [facility] Address [address] [place] [address] Phone Care Team Providers Name Role Phone Edmund Johnson Primary Care Provider Reason for Visit Reason Comments Alcohol intoxication Was reported by friend that patient has been drinking liquor(Vodka) for 5 straight days. Friend called EMS due to patient was not responding and would not answer her questions. Encounter Details Date Type Department Care Team Description 11/10/2018 - Emergency [facility] Bob Vargas MD 11/11/2018 Medicine [address] [facility] [address] [place] [address] [place] [address] [phone] Allergies No Known Allergiesas of this encounter [...] 1 TABLET 06/27/2017 Active Dihydrochloride 5 MG (5 MG TOTAL) Tab BY MOUTH EVERY EVENING. PROCTOSOL HC 2.5 % INSERT INTO 2 06/29/2017 Active Cream THE RECTUM 2 (TWO) TIMES A DAY. escitalopram 10 MG Tab TAKE 1 TABLET 11 06/27/2017 Active (10 MG TOTAL) BY MOUTH DAILY. NORTRIPTYLINE 10 MG Cap TAKE 1 CAPSULE 30 capsule 1 10/19/2017 Active capsule BY MOUTH AT BEDTIME. azithromycin 250 MG Tab Take 1 tablet 4 tablet 0 11/11/2018 11/15/2018 Active tablet by mouth daily for 4 days. as of this encounter Active Problems Problem Noted Date Laryngopharyngeal reflux (LPR) 07/17/2017 Overview: Added automatically from request for surgery [id number] Social History Tobacco Use Types Packs/Day Years Used Date Never Smoker Smokeless Tobacco: Current User Chew Alcohol Use Drinks/Week oz/Week Comments Yes a 5th of vodka daily Sex Assigned at Date Recorded Not on file as of this encounter Last Filed Vital Signs Vital Sign Reading Time Taken Blood Pressure 132/98 11/11/2018 6:00 AM EST Pulse 101 11/11/2018 6:00 AM EST Temperature 37.1 ??C (98.7 ??F) 11/11/2018 6:00 AM EST Respiratory Rate 16 11/11/2018 6:00 AM EST Oxygen Saturation 95% 11/11/2018 6:00 AM EST Inhaled Oxygen Concentration - - Weight 113.4 kg (250 lb) 11/10/2018 10:09 PM EST Height 185.4 cm (6' 1) 11/10/2018 10:09 PM EST Body Mass Index 32.98 11/10/2018 10:09 PM EST in this encounter Discharge Instructions The following attachments cannot be sent through Care Everywhere.Acute Bronchitis, What Is (Singaporean)Alcohol Addiction (Alcoholism), Signs of (Singaporean) Strategies to Prevent Relapse ([facility]) (Singaporean)in this encounter Plan of Treatment Health Maintenance Due Date Last Done Comments HIV SCREENING DISCUSSION 1997 TETANUS 2002 TDAP (ADULT) 2003 INFLUENZA VACCINE (#1) 2018 as of this encounter Procedures Procedure Name Priority Date/Time Associated Diagnosis Comments PTT STAT 11/10/2018 10:20 PM Results for this EST procedure are in the results section. PROTIME-INR STAT 11/10/2018 10:20 PM Results for this EST procedure are in the results section. CBC, EDIF, PLATELET STAT 11/10/2018 10:20 PM Results for this EST procedure are in the results section. MAGNESIUM STAT 11/10/2018 10:20 PM Results for this EST procedure are in the results section. ALCOHOL STAT 11/10/2018 10:20 PM Results for this (ETHANOL),BLOOD EST procedure are in the results section. BASIC METABOLIC STAT 11/10/2018 10:20 PM Results for this PANEL EST procedure are in the results section. in this encounter Results ALCOHOL (ETHANOL),BLOOD (11/10/2018 10:20 PM) ALCOHOL, ETHYL, SERUM 411 (HH) 0 - 10 MG/DL [facility] Comment: HOSPITAL - [address] INTOXICATION >80 MG/DL 627 - [place] FATAL >400 MG/DL CALLED TO AND READ BACK BY LEONOR W[place]SON IN ER [id number] [place] Performing Organization Address [facility] Phone Number [facility] - [address] [place] [place] [address] 627 - [place] MAGNESIUM (11/10/2018 10:20 PM) MAGNESIUM 1.8 1.6 - 2.3 MG/DL [facility] - [address] - [facility] Performing Organization Address [facility] Phone Number [facility] - [address] [place] [place] [address] 627 - [facility] PTT (11/10/2018 10:20 PM) PTT 31.0 (H) 24.2 - 28.6 SEC [facility] - Comment: [address] - [facility] CARDIAC AND PE/DVT THERAPUTIC RANGE 43-66 SEC VASCULAR/THREATENED LIMB THERAPUTIC RANGE 49-75 SEC Performing Organization Address [facility] Phone Number [facility] - [address] [place] [phone] 627 - [place] PROTIME-INR (11/10/2018 10:20 PM) PT 10.8 10.0 - 13.0 SEC [facility] - [address] - [facility] INR 1.00 0.87 - 1.[address] [facility] - Comment: [address] 2.0-3.0 THERAPEUTIC RANGE 627 - [facility] 2.5-3.5 PROSTHETIC VALVE RANGE Performing Organization Address City/State/Zipcode Phone Number [facility] - [address] [place] [place] [address] [address] 627 - [place] BASIC METABOLIC PANEL (11/10/2018 10:20 PM) GLUCOSE 113 (H) 70 - 100 MG/DL [facility] Comment: HOSPITAL - [address] NORMAL <100 mg/dL 62 - [place] PREDIABETES 101-126 mg/dL DIABETES 126 mg/dL or higher BUN 8 7 - 20 MG/DL [facility] - [address] - [place] CREATININE SERUM 0.9 0.7 - 1.2 MG/DL [facility] - [address] - [place] SODIUM 143 137 - 145 MMOL/L [facility] - [facility] [address] - [place] POTASSIUM 3.7 3.5 - 5.1 MMOL/L [facility] - [address] - [place] CHLORIDE 97 (L)Comment: Please 98 - 107 MMOL/L [facility] note: Triglyceride levels [place] [address] N. of 600mg/dL or higher may [address] positively bias chloride 7 - [place] results by approximately 2.1 mmol CARBON DIOXIDE (CO2) 33 (H) 22 - 30 MMOL/L [place] [address] [address] - [place] ANION GAP 13 8 - 16 MMOL/L [place] [address] [address] - [place] CALCIUM 8.5 8.4 - 10.2 MG/DL [facility] - [address] - [place] ESTIMATED GFR, NON >60 ml/min/1.73sq.m [facility] - [address] - [place] ESTIMATED GFR, >60 ml/min/1.73sq.m [facility] - [address] - [place] GFR COMMENT Average GFR for 30-39 years old = 109. [facility] Comment: HOSPITAL - [address] Chronic Kidney disease, GFR = <60. [address] Kidney failure, GFR = <15. 627 - [facility] The GFR estimate is not adjusted for extreme body surface area or acute process, nor has it been validated for women or ethnic groups other than and . Performing Organization Address City/State/Zipcode Phone Number [facility] - [address] [place] [address] [address] [facility] 62 627 - [facility] CBC, EDIF, PLATELET (11/10/2018 10:20 PM) WBC (WHITE BLOOD COUNT) 6.7 3.6 - 11.0 /cmm [facility] - [address] [place] [address] - [facility] RBC 4.96 4.0 - 6.1 /cmm [facility] - [address] [place] [address] - [facility] HEMOGLOBIN (HGB) 15.6 14.0 - 18.0 G/DL [place] [address] [address] [facility] 62 - [place] HEMATOCRIT (HCT) 44.3 42.0 - 52.0 % [place] [address] [address] [facility] 627 - [place] MEAN CELL VOLUME 89.4 80.0 - 100.0 FL [facility] - [address] - [place] Mean Cell HGB 31.4 26.0 - 35.0 PG [facility] - [address] - [place] MEAN CELL HGB CONCENTRATION 35.1 27.0 - 37.0 G/DL [facility] - [address] - [facility] RBC DISTRIBUTION 13.8 11.5 - 14.5 % [facility] - [facility] [address] - [place] PLATELET COUNT 186 130.0 - 400.0 /cmm [facility] - [address] - [facility] MEAN PLATELET VOLUME 6.7 (L) 7.4 - 11.0 FL [facility] - [facility] [address] - [place] DIFFERENTIAL TYPE AUTO DIFF % [facility] - [facility] [address] - [place] NEUTROPHILS 59.0 37.0 - 75.0 % [facility] - [facility] [address] - [place] LYMPHOCYTE 28.8 20.0 - 55.0 % [facility] - [facility] [address] - [place] MONOCYTE 9.1 0.0 - 10.0 % [facility] - [facility] [address] - [place] EOSINOPHIL 2.2 0.0 - 11.0 % [facility] - [facility] [address] - [place] BASOPHIL 0.9 0.0 - 2.0 % [facility] - [facility] [address] - [place] Absolute Neutrophil Count 3.9 1.0 - 7.0 x[address] [facility] - [facility] [address] - [place] LYMPHOCYTES, ABSOLUTE 1.90 X10 [place] [address] - [place] MONOCYTES, ABSOLUTE 0.[address] [facility] - [address] - [place] ABSOLUTE EOSINOPHIL COUNT 0.10 X[address] [facility] - [address] - [place] ABSOLUTE BASOPHIL COUNT 0.[address] X[address] [facility] - [address] - [place] Performing Organization Address City/State/Zipcode Phone Number [facility] - [address] [facility] [place] [address] [address] 627 - [place] in this encounter Visit Diagnoses Diagnosis Alcohol abuse with intoxication - Primary Acute alcoholic intoxication in alcoholism, unspecified Acute bronchitis, unspecified organism Administered Medications Inactive Administered Medications - up to 3 most recent administrations Medication Order MAR Action Action Date Dose Rate Site azithromycin (ZITHROMAX) tablet 500 Given 11/11/2018 02:04 EST 500 mg mg 500 mg, Oral, ONCE, 1 dose, 11/11/18 at 0045 ibuprofen (MOTRIN) tablet 400 mg Given 11/11/2018 03:31 EST 400 mg 400 mg, Oral, ONCE, 1 dose, 11/11/18 at 0400, Give with food multiple vitamin (MVI) 10 mL, folic acid 1 mg, Given 11/10/2018 22:56 EST thiamine (B-1) 100 mg in sodium chloride 0.9%, with overfill 1,061.2 mL (total volume) infusion Intravenous, ONCE, 1 dose, 11/10/18 at 2300 ondansetron 4mg/2ml (ZOFRAN) injection 4 mg Given 11/11/2018 00:42 EST 4 mg 4 mg, Intravenous, ONCE, 1 dose, 11/11/18 at 0100 in this encounter
--- OUTSIDE RECORDS SUMMARY | 2019-01-15 02:32 | XMS RPT_ITS | Summary of Care ---
:1985 Author Organization [facility] Address [address] [place] [address] Phone Care Team Providers Name Role Phone Edmund Johnson DO Primary Care Provider Encounter Details Date Type Department Care Team Description 06/30/2017 Documentation [facility] Physicians CAILIN Paredes, Courtney Chin, [address] [place] [address] [address] [place] [address] Allergies No Known Allergiesas of this encounter Medications Prescription Sig. Disp. Refills Start Date End Date Status pantoprazole (PROTONIX) Take 1 tablet 30 tablet 11 07/26/2016 07/26/2017 Active 40 MG tabletIndications: (40 mg total) Gastroesophageal reflux by mouth disease, esophagitis daily. presence not specified escitalopram oxalate Take 1 tablet 30 tablet 11 07/26/2016 07/26/2017 Active (LEXAPRO) 10 MG (10 mg total) tabletIndications: by mouth Anxiety and depression daily. traZODone (DESYREL) 50 Take 50 mg by Active MG tablet mouth nightly as needed for sleep. levocetirizine (XYZAL) 5 Take 1 tablet 30 tablet 11 09/22/2016 09/22/2017 Active MG tabletIndications: (5 mg total) Sore throat by mouth every evening. ranitidine (ZANTAC) 300 One po bid am 60 tablet 11 12/13/2016 Active MG tablet and hs. ipratropium (ATROVENT) Instill 2 15 mL 12 12/13/2016 12/13/2017 Active 0.06 % nasal spray sprays into each nostril 3 (three) times a day as needed for rhinitis. fluticasone (FLONASE) 50 Instill 2 16 g 02/14/2017 02/14/2018 Active mcg/actuation nasal sprays into spray each nostril daily. chlorhexidine (PERIDEX) 2 (two) times 0 03/02/2017 Active 0.12 % solution a day. hydrocortisone Insert into 30 g 2 06/29/2017 06/29/2018 Active (ANUSOL-HC) 2.5 % rectal the rectum 2 creamIndications: (two) times a Hemorrhoids, unspecified day. hemorrhoid type as of this encounter Active Problems Problem Noted Date Chronic rhinitis 11/16/2016 Dysphagia 11/16/2016 Tobacco abuse disorder 11/16/2016 Laryngopharyngeal reflux (LPR) 11/16/2016 Chronic laryngitis 11/16/2016 as of this encounter Social History Tobacco Use Types Packs/Day Years Used Date Never Smoker 10 Smokeless Tobacco: Current User Chew Alcohol Use Drinks/Week oz/Week Comments Yes once in a while Sex Assigned at Date Recorded Not on file as of this encounter Progress Notes Courtney Paredes MA - 06/30/2017 11:19 AM EDTAPPOINTMENT SCHEDULED WITH [facility] ON 07/17/[address] MAKSIM MANSFIELD MDin this encounter Plan of Treatment Upcoming Encounters Date Type Specialty Care Team Description 07/11/2017 Office Visit Colon and Rectal Surgery Cuba Robles Jr., MD [address] [place] [address] [phone] 09/11/2017 Office Visit Gastroenterology Yogi Amaya MD [address] [place] [address] [phone] Health Maintenance Due Date Last Done Comments TETANUS EVERY 10 YR 1985 SEQUENTIAL INFLUENZA VACCINE (#1) 2017 as of this encounter Insurance Payer Benefit Plan / Group Subscriber ID Type Phone Address [employer] [id number] as of this encounter
--- OUTSIDE RECORDS SUMMARY | 2019-01-15 02:32 | XMS RPT_ITS | Summary of Care ---
:1985 Author Organization [facility] Address [address] [place] [address] Care Team Providers Name Role Phone Edmund Johnson DO Primary Care Provider Encounter Details Date Type Department Care Team Description 03/07/2018 Documentation [facility] Gastroenterology Guillermina Lopez MA Physicians [address] [facility] [address] [place] [address] Allergies No Known Allergiesas of this encounter Medications Prescription Sig. Disp. Refills Start Date End Date Status traZODone (DESYREL) 50 Take 50 mg by Active MG tablet mouth nightly as needed for sleep. chlorhexidine (PERIDEX) 2 (two) times a 0 03/02/2017 Active 0.12 % solution day. hydrocortisone Insert into the 30 g 2 06/29/2017 06/29/2018 Active (ANUSOL-HC) 2.5 % rectum 2 (two) rectal times a day. creamIndications: Hemorrhoids, unspecified hemorrhoid type montelukast (SINGULAIR) Take 1 (one) 30 tablet 11 07/07/2017 07/07/2018 Active 10 mg tablet tablet (10 mg total) by mouth nightly. traZODone (DESYREL) 50 TAKE 1 TABLET 30 tablet 11 07/31/2017 Active MG tabletIndications: (50 MG TOTAL) Insomnia, unspecified BY MOUTH type NIGHTLY NEEDED FOR SLEEP. escitalopram oxalate TAKE 1 TABLET 30 tablet 11 07/31/2017 Active (LEXAPRO) 10 MG (10 MG TOTAL) tabletIndications: BY MOUTH DAILY. Anxiety and depression escitalopram oxalate Take 10 mg by Active (LEXAPRO) 10 MG tablet mouth daily. pantoprazole (PROTONIX) TAKE 1 TABLET 06/27/2017 Active 40 MG tablet BY MOUTH EVERY DAY BEFORE BIGGEST MEAL ranitidine (ZANTAC) 300 TAKE 1 TABLET 06/27/2017 Active MG tablet BY MOUTH TWICE A DAY IN AM AND AT BEDTIME levocetirizine (XYZAL) TAKE 1 TABLET 30 tablet 11 10/02/2017 10/02/2018 Active 5 MG tabletIndications: (5 MG TOTAL) BY Sore throat MOUTH EVERY EVENING. levocetirizine (XYZAL) Take 1 tablet 06/27/2017 Active 5 MG tablet by mouth daily. pantoprazole (PROTONIX) TAKE 1 TABLET 30 tablet 10 12/07/2017 Active 40 MG tablet BY MOUTH EVERY DAY BEFORE BIGGEST MEAL ranitidine (ZANTAC) 300 TAKE 1 TABLET 60 tablet 11 01/02/2018 Active MG tablet BY MOUTH TWICE A DAY IN AM AND AT BEDTIME as of this encounter Active Problems Problem Noted Date Hemorrhoids 07/11/2017 Pruritus ani 07/11/2017 First degree hemorrhoids 07/11/2017 Chronic rhinitis 11/16/2016 Dysphagia 11/16/2016 Tobacco abuse disorder 11/16/2016 Laryngopharyngeal reflux (LPR) 11/16/2016 Chronic laryngitis 11/16/2016 Social History Tobacco Use Types Packs/Day Years Used Date Never Smoker 10 Smokeless Tobacco: Current User Chew Alcohol Use Drinks/Week oz/Week Comments No once in a while Sex Assigned at Date Recorded Not on file as of this encounter Progress Notes Guillermina Lopez MA - 03/07/2018 8:25 AM EDTInsurance denied HCV medication.in this encounter Plan of Treatment Upcoming Encounters Date Type Specialty Care Team Description 08/30/2018 Office Visit Gastroenterology Yogi Amaya MD [address] [place] [address] [phone] Health Maintenance Due Date Last Done Comments TETANUS EVERY 10 YR 1985 SEQUENTIAL INFLUENZA VACCINE (Season Ended) 2018 as of this encounter
--- OUTSIDE RECORDS SUMMARY | 2019-01-15 02:32 | XMS RPT_ITS | Summary of Care ---
:1985 Author Organization [facility] Address [address] [place] [address] Phone Care Team Providers Name Role Phone Unavailable Primary Care Provider Unavailable Reason for Referral Evaluate and Treat (Routine) Status Reason Specialty Diagnoses / Referred By Referred To Procedures Contact Contact Authorized Colon and Rectal Diagnoses Hemorrhoids, unspecified hemorrhoid type Travis Johnson [facility] Edmund Garcia Jr., MD Gallo DO [address] [place] [phone] Phone: Reason for Visit Reason Comments Hemorrhoids Pt states that he has had them for 3 years but that they are worsening. Encounter Details Date Type Department Care Team Description 06/29/2017 Office Visit [facility] Primary Edmund Johnson Hemorrhoids, Care Physicians DO Gallo unspecified [address] hemorrhoid type [place], [place] [address] (Primary Dx) [address] [place] [id number] [phone] Allergies No Known Allergiesas of this encounter Medications Prescription Sig. Disp. Refills Start End Date Status Date pantoprazole Take 1 tablet 30 tablet 11 07/26/20 Active (PROTONIX) 40 MG (40 mg total) by 6 17 tabletIndications: mouth daily. Gastroesophageal reflux disease, esophagitis presence not specified escitalopram oxalate Take 1 tablet 30 tablet 11 07/26/20 Active (LEXAPRO) 10 MG (10 mg total) by 6 17 tabletIndications: mouth daily. Anxiety and depression traZODone (DESYREL) Take 50 mg by Active 50 MG tablet mouth nightly as needed for sleep. levocetirizine Take 1 tablet (5 30 tablet 09/22/20 Active (XYZAL) 5 MG mg total) by 6 17 tabletIndications: mouth every Sore throat evening. ranitidine (ZANTAC) One po bid am 60 tablet 11 Active 300 MG tablet and hs. 7 ipratropium Instill 2 sprays 15 mL 12 12/13/19 Active (ATROVENT) 0.06 % into each 7 18 nasal spray nostril 3 (three) times a day as needed for rhinitis. fluticasone (FLONASE) Instill 2 sprays 16 g 12 02/15/20 Active 50 mcg/actuation into each 7 18 nasal spray nostril daily. chlorhexidine 2 (two) times a 0 Active (PERIDEX) 0.12 % day. 7 solution hydrocortisone Insert into the 30 g 2 06/29/20 Active (ANUSOL-HC) 2.5 % rectum 2 (two) 7 18 rectal times a day. creamIndications: Hemorrhoids, unspecified hemorrhoid type hydrocortisone Insert into the 30 g 2 06/29/20 Discontinued (ANUSOL-HC) 2.5 % rectum 3 (three) 6 17 rectal times a day. creamIndications: Internal hemorrhoids clindamycin (CLEOCIN Apply 1 3 06/29/20 Discontinued T) 1 % external application 7 17 solution topically 2 (two) times a day. as of this encounter Active Problems Problem [...] Vital Sign Reading Time Taken Blood Pressure 115/82 06/29/2017 2:58 PM EDT Pulse 71 06/29/2017 2:58 PM EDT Temperature 36.4 ??C (97.5 ??F) 06/29/2017 2:58 PM EDT Respiratory Rate - - Oxygen Saturation - - Inhaled Oxygen Concentration - - Weight 112 kg (247 lb) 06/29/2017 2:58 PM EDT Height 182.9 cm (6') 06/29/2017 2:58 PM EDT Body Mass Index 33.5 06/29/2017 2:58 PM EDT in this encounter Instructions Patient Instructions - Edmund Johnson, - 06/29/2017 3:14 PM EDTHemorrhoids: Care Instructions Your Care Instructions Hemorrhoids are enlarged veins that develop in the anal canal. Bleeding during bowel movements, itching, swelling, and rectal pain are the most common symptoms. They can be uncomfortable at times, but hemorrhoids rarely are a serious problem. You can treat most hemorrhoids with simple changes to your diet and bowel habits. These changes include eating more fiber and not straining to pass stools. Most hemorrhoids do not need surgery or othertreatment unless they are very large and painful or bleed a lot. Follow-up care is a brooks part of your treatment and safety. Be sure to make and go to all appointments, and call your doctor if you are having problems. It???s also a good idea to know your test resultsand keep a list of the medicines you take. How can you care for yourself at home? ?? Sit in a few inches of warm water (sitz bath) 3 times a day and after bowel movements. The warm water helps with pain and itching. ?? Put ice on your anal area several times a day for 10 minutes at a time. Put a thin cloth between the ice and your skin. Follow this by placing a warm, wet towel on the area for another 10 to 20 minutes. ?? Take pain medicines exactly as directed. ?? If the doctor gave you a prescription medicine for pain, take it as prescribed. ?? If you are not taking a prescription pain medicine, ask your doctor if you can take an [id number] medicine. ?? Keep the anal area clean, but be gentle. Use water and a fragrance-free soap, such as Ivory, or use baby wipes or medicated pads, such as Tucks. ?? Wear cotton underwear and loose clothing to decrease moisture in the anal area. ?? Eat more fiber. Include foods such as whole-grain breads and cereals, raw vegetables, raw and dried fruits, and beans. ?? Drink plenty of fluids, enough so that your urine is light yellow or clear like water. If you have kidney, heart, or liver disease and have to limit fluids, talk with your doctor before you increasethe amount of fluids you drink. ?? Use a stool softener that contains bran or psyllium. You can save money by buying bran or psyllium (available in bulk at most [employer] stores) and sprinkling it on foods or stirring it into fruitjuice. Or you can use a product such as Metamucil or Hydrocil. ?? Practice healthy bowel habits. ?? Go to the bathroom as soon as you have the urge. ?? Avoid straining to pass stools. Relax and give yourself time to let things happen naturally. ?? Do not hold your breath while passing stools. ?? Do not read while sitting on the toilet. Get off the toilet as soon as you have finished. ?? Take your medicines exactly as prescribed. Call your doctor if you think you are having a problemwith your medicine. When should you call for help? Call 911 anytime you think you may need emergency care. For example, call if: ?? You pass maroon or very bloody stools. Call your doctor now or seek immediate medical care if: ?? You have increased pain. ?? You have increased bleeding. Watch closely for changes in your health, and be sure to contact your doctor if: ?? Your symptoms have not improved after 3 or 4 days. Where can you learn more? Log into your personal health record on https://[email or web address] and enter F228 in the Education box to learn more about Hemorrhoids: Care Instructions. Current as of: May 31, 2016 Content Version: 11.2 ?? 2263-4243 [employer]. Care instructions adapted under license by your healthcare professional. If you have questions about a medical condition or this instruction, always ask your healthcare professional. [employer] disclaims any warranty or liability for your use of this information. in this encounter Progress Notes Edmund Johnson, DO - 06/29/2017 3:12 PM EDTSubjective: States painful hemorrhoids that are not improving with Anusol. Patient ID: Tatyana Wang is a 31 y.o. male. HPI Review of Systems Constitutional: Negative for fatigue and fever. HENT: Negative for congestion. Respiratory: Negative for cough and shortness of breath. Cardiovascular: Negative for chest pain. Gastrointestinal: Positive for anal bleeding. Negative for abdominal pain, blood in stool, constipation, diarrhea, nausea and vomiting. Painful hemorrhoids Musculoskeletal: Negative for myalgias and neck pain. Skin: Negative for rash. Neurological: Negative for headaches. Hematological: Negative for adenopathy. Objective: Physical Exam Constitutional: He is oriented to person, place, and time. He appears well- developed and well-nourished. No distress. HENT: Head: Normocephalic and atraumatic. Right Ear: External ear normal. Left Ear: External ear normal. Nose: Nose normal. Mouth/Throat: Oropharynx is clear and moist. Eyes: Conjunctivae and EOM are normal. Pupils are equal, round, and reactive to light. Neck: Normal range of motion. Neck supple. No JVD present. No thyromegaly present. Cardiovascular: Normal rate, regular rhythm, normal heart sounds and intact distal pulses. Pulmonary/Chest: Effort normal and breath sounds normal. He has no wheezes. He has no rales. Abdominal: Soft. Bowel sounds are normal. There is no tenderness. There is no rebound and no guarding. Genitourinary: Prostate normal and penis normal. Genitourinary Comments: One visible external hemorrhoid and palpable internal hemorrhoids. Musculoskeletal: Normal range of motion. He exhibits no edema or tenderness. Neurological: He is alert and oriented to person, place, and time. He has normal reflexes. No cranial nerve deficit. Skin: Skin is warm and dry. No rash noted. He is not diaphoretic. Psychiatric: He has a normal mood and affect. His behavior is normal. Assessment/Plan: Diagnoses and all orders for this visit: Hemorrhoids, unspecified hemorrhoid type - Ambulatory referral to Colorectal Surgery; Future - hydrocortisone (ANUSOL-HC) 2.5 % rectal cream; Insert into the rectum 2 (two) times a day. follow up prn.in this encounter Plan of Treatment Upcoming Encounters Date Type Specialty Care Team Description 09/11/2017 Office Visit Gastroenterology Yogi Amaya MD [address] [place] [address] [phone] Scheduled Referrals Name Priority Associated Diagnoses Order Schedule Ambulatory referral to Routine Hemorrhoids, unspecified 1 Occurrences starting Colorectal Surgery hemorrhoid type 06/29/2017 until 06/29/2018 Health Maintenance Due Date Last Done Comments TETANUS EVERY 10 YR 1985 SEQUENTIAL INFLUENZA VACCINE (#1) 2017 as of this encounter Visit Diagnoses Diagnosis Hemorrhoids, unspecified hemorrhoid type - Primary in this encounter Insurance Payer Benefit Plan / Group Subscriber ID Type Phone Address [employer] [id number] [phone] [facility] [place] [phone] as of this encounter
--- OUTSIDE RECORDS SUMMARY | 2019-01-15 02:32 | XMS RPT_ITS | Summary of Care ---
:1985 Author Organization [facility] Address [address] [place] [address] Phone Care Team Providers Name Role Phone Unavailable Primary Care Provider Unavailable Reason for Visit Reason Comments Follow-up Encounter Details Date Type Department Care Team Description 06/20/2017 Office Visit Everett Devlin Chronic laryngitis Physicians CAILIN Garcia MD (Primary [address] Dx);Laryngopharyngeal [address] reflux (LPR) [place] [address] [place] [address] [phone] Allergies No Known Allergiesas of this encounter Medications Prescription Sig. Disp. Refills Start Date End Date Status hydrocortisone Insert into the 30 g 2 07/26/2016 07/26/2017 Active (ANUSOL-HC) 2.5 % rectum 3 (three) rectal times a day. creamIndications: Internal hemorrhoids pantoprazole Take 1 tablet (40 30 tablet 11 07/26/2016 07/26/2017 Active (PROTONIX) 40 MG mg total) by tabletIndications: mouth daily. Gastroesophageal reflux disease, esophagitis presence not specified escitalopram oxalate Take 1 tablet (10 30 tablet 11 07/26/2016 07/26/2017 Active (LEXAPRO) 10 MG mg total) by tabletIndications: mouth daily. Anxiety and depression traZODone (DESYREL) 50 Take 50 mg by Active MG tablet mouth nightly as needed for sleep. levocetirizine (XYZAL) Take 1 tablet (5 30 tablet 11 09/22/2016 09/22/2017 Active 5 MG mg total) by tabletIndications: mouth every Sore throat evening. clindamycin (CLEOCIN Apply 1 3 12/01/2016 Active T) 1 % external application solution topically 2 (two) times a day. ranitidine (ZANTAC) One po bid am and 60 tablet 11 12/13/2016 Active 300 MG tablet hs. ipratropium (ATROVENT) Instill 2 sprays 15 mL 12 12/13/2016 12/13/2017 Active 0.06 % nasal spray into each nostril 3 (three) times a day as needed for rhinitis. fluticasone (FLONASE) Instill 2 sprays 16 g 12 02/14/2017 02/14/2018 Active 50 mcg/actuation nasal into each nostril spray daily. chlorhexidine 2 (two) times a 0 03/02/2017 Active (PERIDEX) 0.12 % day. solution as of this encounter Active Problems Problem [...] file as of this encounter Progress Notes Everett Heath MD - 06/22/2017 10:11 AM EDTOperative Report [facility] [address] [place] [address] FAX [phone] 06/20/2017 Tatyana A Light 1985 male Everett Heath MD Sherburne Gallo [facility] [phone] Procedure: Flexible Fiberoptic Laryngoscopy Pre op Dx: Dictation on: 06/22/2017 10:14 AM by: EVERETT HEATH [[id number]] Post op Dx: Dictation on: 06/22/2017 10:14 AM by: EVERETT HEATH [[id number]] Findings: Nasal cavity: Congested Nasopharynx: Normal Base of Tongue: Hypertrophic Vallecula: Normal Epiglottis: Normal Aryepiglottic folds: mild erythema Arythenoid cartilage: mild to moderate erythema and edema Vocal cords: Normal Posterior laryngeal mucosa: mild to moderate edema and erythema Pyriform sinus: Normal Lateral pharyngeal wall: Normal Procedure: After obtaining consent and nasal cavity treated topically with neosynephrine 1% and cetacaine a 4mm flexible scope was passed through left nostril and taken to nasopharynx and hypopharynx and larynx for evaluation with above findings. Patient tolerated procedure well with no complications. Dictation on: 06/22/2017 10:17 AM by: EVERETT HEAHT [[id number]] Everett Heath MD in this encounter Plan of Treatment Upcoming Encounters Date Type Specialty Care Team Description 09/11/2017 Office Visit Gastroenterology Yogi Amaya MD [address] [place], [place] [phone] Health Maintenance Due Date Last Done Comments TETANUS EVERY 10 YR 1985 SEQUENTIAL INFLUENZA VACCINE (#1) 2017 as of this encounter Visit Diagnoses Diagnosis Chronic laryngitis - Primary Laryngopharyngeal reflux (LPR) in this encounter Insurance Payer Benefit Plan / Group Subscriber ID Type Phone Address [employer] [id number] [phone] [place], [place] [phone] as of this encounter
--- OUTSIDE RECORDS SUMMARY | 2019-01-15 02:32 | XMS RPT_ITS | Summary of Care ---
:1985 Author Organization [facility] Address [address] [place] [address] Care Team Providers Name Role Phone Edmund Johnson DO Primary Care Provider Reason for Visit Reason Comments Error Encounter Details Date Type Department Care Team Description 08/30/2018 Erroneous [facility] Yogi Amaya, ERRONEOUS Encounter Gastroenterology MD ENCOUNTER--DISREGAR Physicians [address] (Primary Dx) [address] [facility] [address] [place] [address] [place], [place] [phone] [address] [phone] Allergies No Known Allergiesas of this encounter Medications Prescription Sig. Disp. Refills Start Date End Date Status escitalopram oxalate TAKE 1 TABLET 30 tablet 11 07/31/2017 Active (LEXAPRO) 10 MG (10 MG TOTAL) tabletIndications: BY MOUTH DAILY. Anxiety and depression pantoprazole (PROTONIX) TAKE 1 TABLET 06/27/2017 Active 40 MG tablet BY MOUTH EVERY DAY BEFORE BIGGEST MEAL ranitidine (ZANTAC) 300 TAKE 1 TABLET 06/27/2017 Active MG tablet BY MOUTH TWICE A DAY IN AM AND AT BEDTIME levocetirizine (XYZAL) TAKE 1 TABLET 30 tablet 10/02/2017 10/02/2018 Active 5 MG tabletIndications: (5 MG TOTAL) BY Sore throat MOUTH EVERY EVENING. montelukast (SINGULAIR) TAKE 1 (ONE) 30 tablet 06/26/2018 06/26/2019 Active 10 mg tablet TABLET (10 MG TOTAL) BY MOUTH NIGHTLY. traZODone (DESYREL) 50 TAKE 1 TABLET 30 tablet 11 08/27/2018 Active MG tabletIndications: (50 MG TOTAL) Insomnia, unspecified BY MOUTH type NIGHTLY NEEDED FOR SLEEP. as of this encounter Active Problems Problem [...] Vital Sign Reading Time Taken Blood Pressure - - Pulse - - Temperature - - Respiratory Rate 14 08/30/2018 11:50 AM EST Oxygen Saturation - - Inhaled Oxygen Concentration - - Weight 112.5 kg (248 lb) 08/30/2018 11:50 AM EST Height 185.4 cm (6' 1) 08/30/2018 11:50 AM EST Body Mass Index 32.72 08/30/2018 11:50 AM EST in this encounter Progress Notes Guillermina Lopez MA - 09/03/2018 12:38 PM EST This encounter was created in error - please disregard.in this encounter Plan of Treatment Upcoming Encounters Date Type Specialty Care Team Description 03/04/2019 Office Visit Gastroenterology Yogi Amaya MD [address] [facility] [address] [place] [id number] [phone] Health Maintenance Due Date Last Done Comments TETANUS EVERY 10 YR 1985 SEQUENTIAL INFLUENZA VACCINE (#1) 2018 as of this encounter Visit Diagnoses Diagnosis ERRONEOUS ENCOUNTER--DISREGARD - Primary
--- OUTSIDE RECORDS SUMMARY | 2019-01-15 02:32 | XMS RPT_ITS | Summary of Care ---
:1985 Author Organization [facility] Address [address] [place] [address] Phone Care Team Providers Name Role Phone Edmund Johnson DO Primary Care Provider Reason for Visit Reason Comments Follow-up HCV Encounter Details Date Type Department Care Team Description 09/11/2017 Office Visit [facility] Yogi Amaya, Chronic hepatitis C Gastroenterology MD without hepatic coma Physicians [address] (HCC) (Primary Dx) [address] [facility] [address] [place] [address] [place], [place] [phone] [address] [phone] Allergies No Known Allergiesas of this encounter Medications Prescription Sig. Disp. Refills Start Date End Date Status traZODone (DESYREL) 50 Take 50 mg by Active MG tablet mouth nightly as needed for sleep. ranitidine (ZANTAC) 300 One po bid am 60 tablet 11 12/13/2016 Active MG tablet and hs. ipratropium (ATROVENT) Instill 2 15 mL 12 12/13/2016 12/13/2017 Active 0.06 % nasal spray sprays into each nostril 3 (three) times a day as needed for rhinitis. fluticasone (FLONASE) Instill 2 16 g 12 02/14/2017 02/14/2018 Active 50 mcg/actuation nasal sprays into spray each nostril daily. chlorhexidine (PERIDEX) 2 (two) times a 0 [...] Vital Sign Reading Time Taken Blood Pressure 124/87 09/11/2017 2:05 PM EST Pulse 59 09/11/2017 2:05 PM EST Temperature - - Respiratory Rate 14 09/11/2017 2:05 PM EST Oxygen Saturation - - Inhaled Oxygen Concentration - - Weight 107.5 kg (237 lb) 09/11/2017 2:05 PM EST Height 185.4 cm (6' 1) 09/11/2017 2:05 PM EST Body Mass Index 31.27 09/11/2017 2:05 PM EST in this encounter Progress Notes Yogi Amaya MD - 09/11/2017 2:08 PM ESTFormatting of this note may be different from the original. [facility] MEDICAL OFFICE [facility] [address] [facility] [address] Patient Demographics: Tatyana Wang [address] [place] [address] [place]home) Date of : 1985 PCP: Dr. Edmund Johnson, CHIEF COMPLAINT: Chronic hep C History of Presenting Illness: Tatyana Wang is a 31 y.o. male with mentioned past medical history presenting today for follow-up on chronic hepatitis C. He currently states feeling well and denies any major complaints. He also states that his last marijuana use was 18 months back and he has not drank alcohol for almost a year. He also denies any other drug abuse. Previous History of Presenting Illness: Tatyana Wang is a 31 y.o. male with mentioned past medical history presenting today for evaluation of hepatitis C, which was incidentally diagnosed by his revenue accounting manager. He states being IV drug abuser and his last drug use was around 3 years back. Recently he was seen by his revenue accounting manager but he was started on a medicine for acne following which he was noted to have elevated LFTs and subsequently tested positive for hepatitis C and sent here for evaluation. He currently states feeling well and denies any major complaints. Review of Systems: Review of Systems Constitutional: Negative for appetite change, chills, fever and unexpected weight change. HENT: Negative for mouth sores, sore throat, trouble swallowing and voice change. Eyes: Negative for photophobia and pain. Respiratory: Negative for cough, chest tightness and shortness of breath. Cardiovascular: Negative for chest pain and palpitations. Gastrointestinal: Negative for abdominal distention, blood in stool and vomiting. Endocrine: Negative for polydipsia and polyphagia. Musculoskeletal: Negative for arthralgias, back pain, joint swelling, myalgias and neck pain. Skin: Negative for color change, pallor and rash. Allergic/Immunologic: Negative for environmental allergies and food allergies. Neurological: Negative for speech difficulty, weakness, light-headedness and numbness. Psychiatric/Behavioral: Negative. Patient History: Past Medical History: Diagnosis Date ??? Anxiety ??? GERD (gastroesophageal reflux disease) History reviewed. No pertinent surgical history. Family History Problem Relation Age of Onset ??? Prostate cancer Maternal Grandfather ??? Melanoma Neg Hx History Drug Use No History Smoking Status ??? Never Smoker Smokeless Tobacco ??? Current User ??? Types: Chew History Sexual Activity ??? Sexual activity: Not on file Home Medications: Prior to Admission medications Medication Sig Start Date End Date Taking? Authorizing Provider chlorhexidine (PERIDEX) 0.12 % solution 2 (two) times a day. 03/02/17 Yes Historical Provider, escitalopram oxalate (LEXAPRO) 10 MG tablet TAKE 1 TABLET (10 MG TOTAL) BY MOUTH DAILY. 07/31/17 YesGretta Calhoun CNP fluticasone (FLONASE) 50 mcg/actuation nasal spray Instill 2 sprays into each nostril daily. 02/14/ Yes Guillermo Heath MD hydrocortisone (ANUSOL-HC) 2.5 % rectal cream Insert into the rectum 2 (two) times a day. 06/29/17 06/29/18 Yes Edmund Johnson, ipratropium (ATROVENT) 0.06 % nasal spray Instill 2 sprays into each nostril 3 (three) times a day as needed for rhinitis. 12/13/16 12/13/17 Yes Guillermo Heath MD montelukast (SINGULAIR) 10 mg tablet Take 1 (one) tablet (10 mg total) by mouth nightly. 07/07/17 07/07/18 Yes Edmund Johnson, pantoprazole (PROTONIX) 40 MG tablet TAKE 1 TABLET BY MOUTH EVERY DAY BEFORE BIGGEST MEAL 06/27/17 Yes Historical Provider, ranitidine (ZANTAC) 300 MG tablet One po bid am and hs. 12/13/16 Yes Guillermo Heath MD ranitidine (ZANTAC) 300 MG tablet TAKE 1 TABLET BY MOUTH TWICE A DAY IN AM AND AT BEDTIME 06/27/17 Yes Historical Provider, traZODone (DESYREL) 50 MG tablet Take 50 mg by mouth nightly as needed for sleep. Yes Historical Provider, escitalopram oxalate (LEXAPRO) 10 MG tablet Take 10 mg by mouth daily. Historical Provider, traZODone (DESYREL) 50 MG tablet TAKE 1 TABLET (50 MG TOTAL) BY MOUTH NIGHTLY NEEDED FOR SLEEP. 07/31/17 Gretta Calhoun CNP Recent Travel History: none Any Herbal or OTC Products: none Family History: No pertinent GI family history of colon cancer in first degree relatives PHYSICAL EXAM: PACU Vitals 09/11/17 1405 BP: 124/87 Pulse: (!) 59 Resp: 14 107.5 kg (237 lb) 6' 1 Body mass index is 31.27 kg/(m^2). Physical Exam Constitutional: He is oriented to person, place, and time. He appears well-developed. HENT: Head: Normocephalic and atraumatic. Eyes: Conjunctivae and EOM are normal. Pupils are equal, round, and reactive to light. Neck: Neck supple. Cardiovascular: Normal rate, regular rhythm and normal heart sounds. No murmur heard. Pulmonary/Chest: Effort normal and breath sounds normal. No respiratory distress. He has no wheezes. Abdominal: Soft. Bowel sounds are normal. He exhibits no distension. There is no tenderness. There is no rebound and no guarding. Musculoskeletal: Normal range of motion. Lymphadenopathy: He has no cervical adenopathy. Neurological: He is alert and oriented to person, place, and time. Skin: Skin is warm. Psychiatric: He has a normal mood and affect. His behavior is normal. Vitals reviewed. Lab Results: Labs Complete Blood Count: WBC Date Value Ref Range Status 02/20/2015 12.62 (H) 4.50 - 11.00 K/MCL RBC Date Value Ref Range Status 02/20/2015 4.25 (L) 4.50 - 5.90 M/MCL Hemoglobin Date Value Ref Range Status 02/20/2015 11.7 (L) 13.5 - 17.5 G/DL Hematocrit Date Value Ref Range Status 02/20/2015 35.5 (L) 41.0 - 53.0 % MCV Date Value Ref Range Status 02/20/2015 83.5 80.0 - 100.0 FL MCH Date Value Ref Range Status 02/20/2015 27.5 26.0 - 34.0 PG RDW Date Value Ref Range Status 02/20/2015 13.4 11.6 - 14.8 % MPV Date Value Ref Range Status 02/20/2015 8.4 (L) 9.0 - 15.5 FL Labs Metabolic Panels: Potassium Date Value Ref Range Status 02/20/2015 3.6 3.5 - 5.1 MMOL/L Chloride Date Value Ref Range Status 02/20/2015 96 (L) 98 - 108 MMOL/L Bicarbonate Date Value Ref Range Status 02/20/2015 31 21 - 32 MMOL/L Glucose Date Value Ref Range Status 02/20/2015 143 (H) 65 - 99 MG/DL BUN Date Value Ref Range Status 02/20/2015 10 8 - 25 MG/DL Serum Creatinine Date Value Ref Range Status 02/20/2015 0.86 0.80 - 1.30 MG/DL GFR, Non Date Value Ref Range Status 02/20/2015 >60 60 - 589 Comment: Units of measure: mL/min/1.73 m2 The eGFR should be used for monitoring renal function only and not for medication dosing. eGFR Date Value Ref Range Status 02/20/2015 >60 60 - 714 Comment: Units of measure: mL/min/1.73 m2 BUN/Creat Ratio Date Value Ref Range Status 02/20/2015 11.6 10.0 - 20.0 Total Protein Date Value Ref Range Status 01/27/2017 8.1 (H) 6.0 - 8.0 g/dL Final Albumin Date Value Ref Range Status 01/27/2017 4.4 3.2 - 5.2 g/dL Final Calcium Date Value Ref Range Status 02/20/2015 8.7 8.4 - 10.2 MG/DL Comment: The above 12 analytes were performed by [facility] [address],[place] [address] Alkaline Phosphatase Date Value Ref Range Status 01/27/2017 104 40 - 140 U/L Final AST Date Value Ref Range Status 01/27/2017 33 0 - 45 U/L Final ALT Date Value Ref Range Status 01/27/2017 87 (H) 14 - 65 U/L Final Total Bilirubin Date Value Ref Range Status 01/27/2017 0.7 0.0 - 1.3 mg/dL Final UDS 05/17/17- positive for Opiates UDS from care everywhere dated 07/21/2017 showing positive for opiates Component Name 07/21/2017 06/21/2017 ?? NEGATIVE NEGATIVE NEGATIVE NEGATIVE NEGATIVE NEGATIVE POSITIVE (A) NEGATIVE NEGATIVE NEGATIVE NEGATIVE NEGATIVE NEGATIVE NEGATIVE NEGATIVE NEGATIVE NEGATIVE NEGATIVE NEGATIVE NEGATIVE CANNABINOIDS (MARIJUANA) PHENCYCLIDINE COCAINE/METABOLITES OPIATES BENZODIAZEPINES TRICYCLIC ANTIDEPRESSANTS SCREEN, URINE METHADONE BARBITURATES OXYCODONE PROPOXYPHENE Imaging: Reviewed from the scanned report - showing mildly increased echogenicity and with mild splenomegaly Endoscopy: EGD 2017- Impression:?- Normal esophagus. ? - Normal stomach. ? - Normal examined duodenum. ? - The Paylocity capsule was deployed. ? - No specimens collected. Recommendation:?- Discharge patient to home (ambulatory). ? - Patient has a contact number available for ? emergencies. The signs and symptoms of potential ? delayed complications were discussed with the ? patient. Return to normal activities tomorrow. ? Written discharge instructions were provided to the ? patient. ? - Resume previous diet. ? - Continue present medications. ? - Return to my office as previously scheduled. Assessment & Plan: Tatyana Wang is a 31 y.o. male with mentioned past medical history presenting today for follow-up on chronic hepatitis C, which he likely acquired to IV drug abuse in the last use according to him was3 years back. He also used to abuse opiate pain medications and marijuana but states that his last abuse was 1-1/2 years back. After his last evaluation with me, he underwent drug screen which returned positive for opiates and for unclear reason, he underwent another drug screen on 07/21/2017 at [facility] and which was also positive for opiates. However, on having this discussion with the patient, he denies any ongoing abuse and isshocked about the results. At this point, I have explained him the importance of being truthful along with the importance of drug cessation for his management. For now, I would recommend for him to undergo workup is required byhis insurance company including 3 consecutive drug and alcohol screens along with fiber scan and I will try to apply for his medications after the above workup is done. Again, I have very strongly explained him the importance of drug and alcohol cessation. Follow Up: No Follow-up on file. Respectfully; Dr. Yogi Amaya MD ? Please cc note to Roshan Bhardwaj this encounter Plan of Treatment Upcoming Encounters Date Type Specialty Care Team Description 03/12/2018 Office Visit Gastroenterology Yogi Amaya MD [address] [place] [address] Pending Results Name Priority Associated Diagnoses Date/Time Drug Abuse Survey, Urine Routine Chronic hepatitis C without 09/11/2017 2:57 PM EST hepatic coma (HCC) Ethanol, Urine Routine Chronic hepatitis C without 09/11/2017 2:57 PM EST hepatic coma (HCC) Health Maintenance Due Date Last Done Comments TETANUS EVERY 10 YR 1985 SEQUENTIAL INFLUENZA VACCINE (#1) 2017 as of this encounter Visit Diagnoses Diagnosis Chronic hepatitis C without hepatic coma (HCC) - Primary in this encounter Insurance Payer Benefit Plan / Group Subscriber ID Type Phone Address [employer] [id number] [phone] [place], [place] [phone] as of this encounter
--- OUTSIDE RECORDS SUMMARY | 2019-01-15 02:32 | XMS RPT_ITS | Summary of Care ---
:1985 Author Organization [facility] Address [address] [place] [address] Phone Care Team Providers Name Role Phone Edmund Johnson DO Primary Care Provider Encounter Details Date Type Department Care Team Description 07/07/2017 Documentation [facility] Jennifer Kline MA Physicians [address] [place] [address] Allergies No Known Allergiesas of this encounter [...] fluticasone (FLONASE) 50 Instill 2 16 g 12 02/14/2017 02/14/2018 Active mcg/actuation nasal sprays into spray each nostril daily. chlorhexidine (PERIDEX) 2 (two) times 0 03/02/2017 Active 0.12 % solution a day. hydrocortisone Insert into 30 g 2 06/29/2017 06/29/2018 Active (ANUSOL-HC) 2.5 % rectal the rectum 2 creamIndications: (two) times a Hemorrhoids, unspecified day. hemorrhoid type montelukast (SINGULAIR) Take 1 (one) 30 tablet 11 07/07/2017 07/07/2018 Active 10 mg tablet tablet (10 mg total) by mouth nightly. as of this encounter Active Problems Problem [...] file as of this encounter Progress Notes Jennifer Kline MA - 07/07/2017 4:42 PM EDTPT was calledin this encounter Plan of Treatment Upcoming Encounters Date Type Specialty Care Team Description 07/11/2017 Office Visit Colon and Rectal Surgery Cuba Robles Jr., MD [address] [place] [address] [phone] 09/11/2017 Office Visit Gastroenterology Yogi Amaya MD [address] [place] [address] [phone] Health Maintenance Due Date Last Done Comments TETANUS EVERY 10 YR 1985 SEQUENTIAL INFLUENZA VACCINE (#1) 2017 as of this encounter Insurance Payer Benefit Plan / Group Subscriber ID Type Phone Address [employer] [id number] as of this encounter
--- OUTSIDE RECORDS SUMMARY | 2019-01-15 02:32 | XMS RPT_ITS | Summary of Care ---
:[address] [facility] Address [address] [place] [address] Care Team Providers Name Role Phone dEmund Johnson DO Primary Care Provider Reason for Visit Reason Comments Suture / Staple Removal x 5 scalp Encounter Details Date Type Department Care Team Description 07/05/[address] [facility] Primary Edmund Johnson Laceration of scalp without foreign body, initial encounter (Primary Dx); Care Physicians DO Gallo Encounter for staple removal; [address] Syncope, unspecified syncope type [place], [place] [address] [phone] [place] [address] Allergies No Known Allergiesas of this encounter Medications Prescription Sig. Disp. Refills Start Date End Date Status traZODone (DESYREL) Take 50 mg by Active 50 MG tablet mouth nightly as needed for sleep. escitalopram oxalate TAKE 1 TABLET 30 tablet 07/31/2017 Active (LEXAPRO) 10 MG (10 MG TOTAL) tabletIndications: BY MOUTH Anxiety and DAILY. depression pantoprazole TAKE 1 TABLET 06/27/2017 Active (PROTONIX) 40 MG BY MOUTH tablet EVERY DAY BEFORE BIGGEST MEAL ranitidine (ZANTAC) TAKE 1 TABLET 06/27/2017 Active 300 MG tablet BY MOUTH TWICE A DAY IN AM AND AT BEDTIME levocetirizine TAKE 1 TABLET 30 tablet 10/02/2017 10/02/2018 Active (XYZAL) 5 MG (5 MG TOTAL) tabletIndications: BY MOUTH Sore throat EVERY EVENING. montelukast TAKE 1 (ONE) 30 tablet 11 06/26/2018 06/26/2019 Active (SINGULAIR) 10 mg TABLET (10 MG tablet TOTAL) BY MOUTH NIGHTLY. chlorhexidine 2 (two) times 0 03/02/2017 07/05/2018 Discontinued (PERIDEX) 0.12 % a day. solution traZODone (DESYREL) TAKE 1 TABLET 30 tablet 11 07/31/2017 07/05/2018 Discontinued 50 MG (50 MG TOTAL) tabletIndications: BY MOUTH Insomnia, NIGHTLY unspecified type NEEDED FOR SLEEP. escitalopram oxalate Take 10 mg by 07/05/2018 Discontinued (LEXAPRO) 10 MG mouth daily. tablet levocetirizine Take 1 tablet 06/27/2017 07/05/2018 Discontinued (XYZAL) 5 MG tablet by mouth daily. pantoprazole TAKE 1 TABLET 30 tablet 10 12/07/2017 07/05/2018 Discontinued (PROTONIX) 40 MG BY MOUTH tablet EVERY DAY BEFORE BIGGEST MEAL ranitidine (ZANTAC) TAKE 1 TABLET 60 tablet 11 01/02/2018 07/05/2018 Discontinued 300 MG tablet BY MOUTH TWICE A DAY [...] Vital Sign Reading Time Taken Blood Pressure 113/78 07/05/2018 5:04 PM EDT Pulse 99 07/05/2018 5:04 PM EDT Temperature 37.2 ??C (98.9 ??F) 07/05/2018 5:04 PM EDT Respiratory Rate - - Oxygen Saturation - - Inhaled Oxygen Concentration - - Weight 107.4 kg (236 lb 12.8 oz) 07/05/2018 5:04 PM EDT Height - - Body Mass Index 31.24 07/05/2018 5:04 PM EDT in this encounter Instructions Patient Instructions - Edmund Johnson, - 07/05/2018 5:13 PM EDTFormatting of this note may be different from the original. Cuts: Care Instructions Your Care Instructions A cut can happen anywhere on your body. Stitches, nolvia, skin adhesives, or pieces of tape called Steri-Strips are sometimes used to keep the edges of a cut together and help it heal. Steri- Strips can be used by themselves or with stitchesor nolvia. Sometimes cuts are left open. If the cut went deep and through the skin, the doctor may have closed the cut in two layers. A deeper layer of stitches brings the deep part of the cut together. These stitches will dissolve and don't need to be removed. The upper layer closure, which could be stitches, nolvia, Steri-Strips, or adhesive, is what you see on the cut. A cut is often covered by a bandage. The doctor has checked you carefully, but problems can develop later. If you notice any problems or new symptoms, get medical treatment right away. Follow-up care is a brooks part of your treatment and safety. Be sure to make and go to all appointments, and call your doctor if you are having problems. It's also a good idea to know your test results and keep a list of the medicines you take. How can you care for yourself at home? If a cut is open or closed ?? Prop up the sore area on a pillow anytime you sit or lie down during the next 3 days. Try to keepit above the level of your heart. This will help reduce swelling. ?? Keep the cut dry for the first 24 to 48 hours. After this, you can shower if your doctor okays it. Pat the cut dry. ?? Don't soak the cut, such as in a bathtub. Your doctor will tell you when it's safe to get the cutwet. ?? After the first 24 to 48 hours, clean the cut with soap and water 2 times a day unless your doctor gives you different instructions. ?? Don't use hydrogen peroxide or alcohol, which can slow healing. ?? You may cover the cut with a thin layer of petroleum jelly and a nonstick bandage. ?? If the doctor put a bandage over the cut, put on a new bandage after cleaning the cut or if the bandage gets wet or dirty. ?? Avoid any activity that could cause your cut to reopen. ?? Be safe with medicines. Read and follow all instructions on the label. ?? If the doctor gave you a prescription medicine for pain, take it as prescribed. ?? If you are not taking a prescription pain medicine, ask your doctor if you can take an nzns-vdy-[id number] medicine. If the cut is closed with stitches, nolvia, or Steri-Strips ?? Follow the above instructions for open or closed cuts. ?? Do not remove the stitches or nolvia on your own. Your doctor will tell you when to come back tohave the stitches or nolvia removed. ?? Leave Steri-Strips on until they fall off. If the cut is closed with a skin adhesive ?? Follow the above instructions for open or closed cuts. ?? Leave the skin adhesive on your skin until it falls off on its own. This may take 5 to 10 days. ?? Do not scratch, rub, or pick at the adhesive. ?? Do not put the sticky part of a bandage directly on the adhesive. ?? Do not put any kind of ointment, cream, or lotion over the area. This can make the adhesive fall off too soon. Do not use hydrogen peroxide or alcohol, which can slow healing. When should you call for help? Call your doctor now or seek immediate medical care if: ? ?? You have new pain, or your pain gets worse. ? ?? The skin near the cut is cold or pale or changes color. ? ?? You have tingling, weakness, or numbness near the cut. ? ?? The cut starts to bleed, and blood soaks through the bandage. Oozing small amounts of blood is normal. ? ?? You have trouble moving the area near the cut. ? ?? You have symptoms of infection, such as: ?? Increased pain, swelling, warmth, or redness around the cut. ?? Red streaks leading from the cut. ?? Pus draining from the cut. ?? A fever. ?Watch closely for changes in your health, and be sure to contact your doctor if: ? ?? The cut reopens. ? ?? You do not get better as expected. Where can you learn more? Log into your personal health record on https://[employer] and enter M735 in the Education box to learn more about Cuts: Care Instructions. Current as of: September 11, 2017 Content Version: 11.6 ?? 8145-3447 [employer]. Care instructions adapted under license by your healthcare professional. If you have questions about a medical condition or this instruction, always ask your healthcare professional. [employer] disclaims any warranty or liability for your use of this information. in this encounter Progress Notes Edmund Johnson, DO - 07/05/2018 5:10 PM EDTSubjective Pt here today for staple removal. Went to ER on 06/22/18 for syncope with head laceration. Was getting a haircut when he held in a sneeze and passed out. Fell forward and hit head on concrete. Patient ID: Dewayne Wang is a 32 y.o. male. HPI Review of Systems Constitutional: Negative for chills and fever. HENT: Negative for congestion and sore throat. Eyes: Negative for visual disturbance. Respiratory: Negative for cough and shortness of breath. Cardiovascular: Negative for chest pain and leg swelling. Gastrointestinal: Negative for abdominal pain, nausea and vomiting. Endocrine: Negative for polydipsia. Genitourinary: Negative for dysuria. Musculoskeletal: Negative for myalgias. Skin: Positive for wound (healed laceration head). Allergic/Immunologic: Negative. Neurological: Negative for dizziness and headaches. Hematological: Negative for adenopathy. Psychiatric/Behavioral: Negative. Objective Physical Exam Constitutional: He is oriented to person, place, and time. He appears well- developed and well-nourished. No distress. HENT: Head: Normocephalic and atraumatic. Right Ear: External ear normal. Left Ear: External ear normal. Nose: Nose normal. Mouth/Throat: Oropharynx is clear and moist. Eyes: Pupils are equal, round, and reactive to light. Conjunctivae and EOM are normal. Neck: Normal range of motion. Neck supple. No JVD present. No thyromegaly present. Cardiovascular: Normal rate, regular rhythm, normal heart sounds and intact distal pulses. Pulmonary/Chest: Effort normal and breath sounds normal. He has no wheezes. He has no rales. He exhibits no tenderness. Abdominal: Soft. Bowel sounds are normal. There is no tenderness. There is no rebound and no guarding. Musculoskeletal: Normal range of motion. He exhibits no edema or tenderness. Lymphadenopathy: He has no cervical adenopathy. Neurological: He is alert and oriented to person, place, and time. He has normal reflexes. No cranial nerve deficit. Skin: Skin is warm and dry. No rash noted. 5 nolvia removed without difficulty from right top of head. Laceration healed well. Psychiatric: He has a normal mood and affect. His behavior is normal. Assessment/Plan: Diagnoses and all orders for this visit: Laceration of scalp without foreign body, initial encounter Encounter for staple removal Syncope, unspecified syncope type Comments: history is vasovagal syncope. workup in ED was negative. no further workup needed at this time. Care instructions given. Well healed at this time. Follow up prn.in this encounter Plan of Treatment Upcoming Encounters Date Type Specialty Care Team Description 08/30/2018 Office Visit Gastroenterology Yogi Amaya MD [address] [place] [phone] Health Maintenance Due Date Last Done Comments TETANUS EVERY 10 YR 1985 SEQUENTIAL INFLUENZA VACCINE (#1) 2018 as of this encounter Visit Diagnoses Diagnosis Laceration of scalp without foreign body, initial encounter - Primary Encounter for staple removal Syncope, unspecified syncope type
--- OUTSIDE RECORDS SUMMARY | 2019-01-15 02:32 | XMS RPT_ITS | Summary of Care ---
:1985 Author Organization [facility] Address [address] [place] [address] Phone Care Team Providers Name Role Phone Unavailable Primary Care Provider Unavailable Encounter Details Date Type Department Care Team Description 06/22/2017 Documentation [facility] Physicians Nan Liu, [place] [address] [place] [address] Allergies No Known Allergiesas of this encounter [...] file as of this encounter Progress Notes Nan Rosas MA - 06/22/2017 2:46 PM EDTFAXED REFERRAL TO [facility] (DR MANSFIELD OR DR TONG) GENERAL SX. FAXED ALL MEDICAL, NOTES, INS INFO TO FAX#[phone] this encounter Plan of Treatment Upcoming Encounters Date Type Specialty Care Team Description 09/11/2017 Office Visit Gastroenterology Yogi Amaya MD [address] [place] [address] Health Maintenance Due Date Last Done Comments TETANUS EVERY 10 YR 1985 SEQUENTIAL INFLUENZA VACCINE (#1) 2017 as of this encounter Insurance Payer Benefit Plan / Group Subscriber ID Type Phone Address [employer] [id number] as of this encounter
--- OUTSIDE RECORDS SUMMARY | 2019-01-15 02:32 | XMS RPT_ITS ---
:1985 Author Organization OHIP Support Name Relationship Address Phone E H [employer] Unavailable [address] + [place] [address] LIGHT, JACOB Unavailable [address] + [place] [address] E h [employer] Unavailable [address] + [place] [address] LIGHT, JACOB Unavailable [address] + [place] [address] E h [employer] Unavailable [address] + [place] [address] LIGHT, JACOB Unavailable [address] + [place] [address] E h [employer] Unavailable [address] + [place] [address] LIGHT, JACOB Unavailable [address] + [place] [address] E H [employer] Unavailable [address] + [place] [address] LIGHT, JACOB Unavailable [address] + [place] [address] LIGHT, RADHA Unavailable Unavailable + LIGHT, JACOB Unavailable [address] + [place] [address] LIGHT, JACOB Unavailable [address] + [place] [address] LIGHT, RADHA Unavailable Unavailable + LIGHT, RADHA Unavailable Unavailable + LIGHT, JACOB Unavailable [address] + [place] [address] LIGHT, JACOB Unavailable [address] + [place] [address] LIGHT, RADHA Unavailable Unavailable + LIGHT, RADHA Unavailable Unavailable + LIGHT, JACOB Unavailable [address] + [place] [address] LIGHT, JACOB Unavailable [address] + [place] [address] LIGHT, RADHA Unavailable Unavailable + LIGHT, JACOB Unavailable Unavailable + LIGHT, JACOB Unavailable Unavailable + LIGHT, TATYANA Unavailable Unavailable Unavailable LIGHT, RADHA Unavailable Unavailable + LIGHT, JACOB Unavailable [address] + [place] [address] LIGHT, JACOB Unavailable [address] + [place] [address] LIGHT, RADHA Unavailable Unavailable + Care Team Providers Name Role Phone REYNOLDS VANNA CATHERINE Admitting Unavailable CAMERON ARCHIBALD Primary Care Unavailable CAMERON ARCHIBALD Attending Unavailable CAMERON ARCHIBALD Primary Care Unavailable ISAIAS, JOSEFINA Attending Unavailable CAMERON ARCHIBALD Primary Care Unavailable ISAIAS, JOSEFINA Attending Unavailable CAMERON ARCHIBALD Primary Care Unavailable ISAIAS, JOSEFINA Attending Unavailable ISAIAS, JOSEFINA Referring Unavailable ISAIAS, JOSEFINA Attending Unavailable ISAIAS, JOSEFINA Referring Unavailable CHAD MONTIEL Attending Unavailable ONEIDA ANDUJAR Attending Unavailable MAKSIM MANSFIELD Attending Unavailable ISAIAS, JOSEFINA Referring Unavailable CAMERON ARCHIBALD Primary Care Unavailable Ashelfah, Ghasem Admitting Unavailable Ashelfah, Ghasem Referring Unavailable MINA MEEK Primary Care Unavailable Koram, Patti Shaylee Attending Unavailable Ashelfah, Ghasem Admitting Unavailable Ashelfah, Ghasem Attending Unavailable Ashelfah, Ghasem Referring Unavailable MINA MEEK Primary Care Unavailable Ashelfah, Ghasem Consulting Unavailable Ashelfah, Ghasem Admitting Unavailable Koram, Patti Shaylee Attending Unavailable Ashelfah, Ghasem Referring Unavailable MINA MEEK Primary Care Unavailable Koram, Patti Shaylee Consulting Unavailable Ashelfah, Ghasem Admitting Unavailable Koram, Patti Shaylee Attending Unavailable Ashelfah, Ghasem Referring Unavailable MINA MEEK Primary Care Unavailable Koram, Patti Shaylee Consulting Unavailable Ashelfah, Ghasem Admitting Unavailable Koram, Patti Shaylee Attending Unavailable Ashelfah, Ghasem Referring Unavailable MINA MEEK Primary Care Unavailable Koram, Patti Shaylee Consulting Unavailable PROBLEMS PROBLEMS DATE TYPE CONDITION / CODE ATTENDING STATUS SOURCE 11/10/2018 Admitting Alcohol abuse ONEIDA ANDUJAR [email or web address] Diagnosis with [place] intoxication, Repository unspecified / F10.129(ICD-10) 11/10/2018 Admitting Acute bronchitis, ONEIDA ANDUJAR [employer] Diagnosis unspecified / [place] J20.9(ICD-10) Repository 11/07/2018 Chronic Cough / NA [employer] R05(ICD-10) [place] Repository 07/05/2018 Admitting Laceration [facility] diagnosis without foreign CHRISTOPHER Three body of scalp, [facility] Repository initial encounter / S01.01XA(ICD-10) 07/05/2018 Admitting Encounter for [facility] diagnosis removal of CHRISTOPHER Three sutures / [facility] Repository Z48.02(ICD-10) 07/05/2018 Admitting Syncope and [facility] diagnosis collapse / CHRISTOPHER Three R55(ICD-10) [facility] Repository 06/22/2018 Working Syncope and FOSKEY, CHAD A [employer] Diagnosis collapse / [place] R55(ICD-10) Repository 06/22/2018 Working Laceration FOSKEY, CHAD A [employer] Diagnosis without foreign [facility] [place] body of scalp, Repository initial encounter / S01.01XA(ICD-10) 06/22/2018 Working Unspecified FOSKEY, CHAD A [employer] Diagnosis injury of face, [facility] [place] initial encounter Repository / S09.93XA(ICD-10) 01/29/2018 Admitting Unspecified viral NA [facility] diagnosis hepatitis C Repository without hepatic coma / B19.20(ICD-10) PROCEDURES PROCEDURES No Procedure Records FoundRESULTS RESULTS DISCHARGE SUMMARY Observed: 11/15/2018 Status: F [facility] [place] [facility] Medical Records Department [address] [place] [address] Discharge Summary 11/15/18 1019 MR#: [id number] Acct: [id number] Name: TATYANA LOPEZ Rep #: [id number] : 1985 33 From: Patti Barbour MD PCP: OUT OF TOWN DOCTOR Status: ADM IN Location: [address] Discharge Date and Diagnosis - Problem List Patient Problems: Active and Suspected Problems Acute alcohol withdrawal (Acute) Date of Admission: 11/12/18 Date of Discharge: 11/15/18 - Primary Discharge Diagnosis Active and Suspected Problems Acute alcohol withdrawal (Acute) - Secondary Discharge Diagnosis Chronic Problems Alcohol abuse (Chronic) GERD (gastroesophageal reflux disease) (Chronic) Depression (Chronic) Hospital Course and Treatment Operations: None Procedures: None Summary of Care Provided: Patient is a [age]-year-old male with a past medical history of alcohol abuse, GERD and depression. Was admitted to the [facility] for alcohol withdrawal. Patient had been abusing alcohol for many years and drinks about a gallon of vodka every day which is sometimes mixed with beer. His last drink was 2 days prior to presentation. He had severe tremors, restlessness and anxiety on admission with nausea and vomiting. He was admitted and managed for acute alcohol withdrawal and was placed on the Ativan withdrawal protocol per [facility] protocol. Patient's restlessness and agitation improved and CIWA score was monitored and it improved. He remained stable and was discharged home on 11/15/2018 with a prescription for Antabuse for 2 weeks. He is to follow-up with his primary care doctor and the [facility] for outpatient rehab. Patient seen and examined prior to discharge. He had no complaints and felt well. He denied any fever, any chills, any cough or chest pain, any cough or shortness of breath, abdominal pain, diarrhea vomiting. Review of systems otherwise negative. Labs and vitals reviewed. Home medications reviewed and reconciled. o/e: General: Alert, Oriented x3, Cooperative, No apparent distress HEENT: Atraumatic, PERRLA, EOMI, Normocephalic Oral: Moist Mucosa Neck: Supple, No JVD, Negative Carotid Bruits Lungs: Clear to auscultation, Normal air movement, No rhonchi, No wheeze, No rales Cardiovascular: Regular rate, Regular Rhythm, Normal S1, Normal S2, No murmurs Abdomen: Bowel Sounds Present, Soft, Non Tender, Non-Distended, No Hepato-splenomegaly Extremities: No clubbing, No cyanosis, No edema, Capillary Refill Less than 3 Seconds Skin: No rashes, No breakdown Musculoskeletal: No Tenderness to Palpation of Joints or Extremities Lymphatic: No Cervical, Supraclavicular, or Inguinal Adenopathy Neurological: Cranial nerves II-XII grossly intact, Neuro grossly intact, Motor Exam 5/5 strength throughout Psych/Mental Status: Normal Affect, Appropriate, Alert and oriented to time, place, person, mood and affect Patient Problems: Active and Suspected Problems Acute alcohol withdrawal (Acute) - Physical Exam Vital Signs Temp Pulse Resp BP Pulse Ox 98.2 F 63 16 133/94 H 98 11/15/18 07:41 11/15/18 07:41 11/15/18 07:41 11/15/18 07:41 11/15/18 07:41 Oxygen Delivery Method Room Air Weight: 239 lb 13.807 oz Body Mass Index (BMI) 31.6 Intake and Output for Last 24 Hours Intake Total 1860 / 1860 1520 / 1520 360 / 360 Balance 1860 / 1860 1520 / 1520 360 / 360 Discharge Diet: No Restrictions Discharge Activity: Return to Normal Activity Weight Bearing Status: Weight bearing as tolerated Home Medications: Medications to take at Discharge Escitalopram Oxalate [Lexapro] 10 mg PO DAILY 11/12/18 Levocetirizine Dihydrochloride [Xyzal] 5 mg PO DINNER 11/12/18 Loratadine [Claritin] 10 mg PO DAILY 11/12/18 Pantoprazole Sodium [Protonix] 40 mg PO DAILY 11/12/18 Ranitidine [Zantac] 300 mg PO BID 11/12/18 traZODone [Desyrel] 50 mg PO QHS PRN 11/12/18 Disulfiram [Antabuse] 250 mg PO DAILY #14 tab 11/15/18 Guaifenesin [Mucinex] 600 mg PO Q12H PRN PRN #30 tab.er.12h 11/15/18 Following Prescrptions Were Given to Patient: Guaifenesin [Mucinex] 600 mg PO Q12H PRN PRN #30 tab.er.12h PRN Reason: Chest Congestion/Secretions Disulfiram [Antabuse] 250 mg PO DAILY #14 tab Primary Care Physician: [facility] Doctor,Out of [Primary Care Provider] - Please follow up with your Primary Care Physician in: follow with your PCP within 1-2 weeks Patient Instructions: Disulfiram Oral tablet Disposition: Home Minutes spent on discharge:: 37 Patient Condition:: Stable Medical Necessity - Tobacco Use Smoking Status: Current some day smoker Tobacco Use: Chew Meaningful Use Info Meaningful Use Diagnoses (Choose all that apply): None applicable Code Visit Inpatient E AND M: 46880 Disch Hosp 11/15/18 1343 <Electronically signed by Patti Barbour MD> Date Patti Barbour MD Cosigner Signature (if applicable): Date CC: Patti Barbour MD; [facility] Signed DISCHARGE INSTRUCTION Observed: 11/15/2018 Status: F Source: [place] 10:19 AM [facility] REPOSITORY [facility] Medical Records Department [address] [place] [address] [place] [address] Instructions for Home/Discharge Instructions 11/15/18 1018 MR#: [id number] Acct: [id number] Name: TATYANA LOPEZ Rep #: [id number] : 1985 33 From: Patti Barbour MD [facility]CP[facility] Status: ADM IN - Discharge Diagnoses Current Active Problems: Current Active and Chronic Problems Acute alcohol withdrawal (Acute) Alcohol abuse (Chronic) GERD (gastroesophageal reflux disease) (Chronic) Depression (Chronic) You will use the following diet at home:: No restrictions Your food should be the consistency of: Regular Your liquids should be the consistency of: Regular/Thin Discharge Activity: Return to Normal Activity Weight Bearing Status: Weight bearing as tolerated Instructions: Disulfiram Oral tablet Allergies/Adverse Reactions: Allergies No Known Allergies Allergy (Verified 11/12/18 14:40) Medications to take at Discharge Escitalopram Oxalate [Lexapro] 10 mg PO DAILY 11/12/18 Levocetirizine Dihydrochloride [Xyzal] 5 mg PO DINNER 11/12/18 Loratadine [Claritin] 10 mg PO DAILY 11/12/18 Pantoprazole Sodium [Protonix] 40 mg PO DAILY 11/12/18 Ranitidine [Zantac] 300 mg PO BID 11/12/18 traZODone [Desyrel] 50 mg PO QHS PRN 11/12/18 Disulfiram [Antabuse] 250 mg PO DAILY #14 tab 11/15/18 Guaifenesin [Mucinex] 600 mg PO Q12H PRN PRN #30 tab.er.12h 11/15/18 The following prescriptions were given: Guaifenesin [Mucinex] 600 mg PO Q12H PRN PRN #30 tab.er.12h PRN Reason: Chest Congestion/Secretions Disulfiram [Antabuse] 250 mg PO DAILY #14 tab Primary Care Physician: [facility] Doctor,Out of [Primary Care Provider] - Please follow up with your Primary Care Physician in: follow with your PCP within 1-2 weeks Test Results: Test results from this visit will be discussed in further detail at your follow-up appointment, if applicable. Proposed Discharge Date: 11/15/18 11/15/18 1019 <Electronically signed by Patti Barbour MD> Date Patti Barbour MD CC: [facility] Signed URINE DRUG SCREEN Collected: 11/12/2018 Status: F Source: [place] (VISTA) 5:50 PM [facility] REPOSITORY TYPE CODE TESTS RESULT OUT OF RANGE REFERENCE UNITS LAB L505.0075 TO BE Normal CONFIRMED Result Comment: CONFIRMATORY TESTING FOR ALL POSITIVE URINE DRUG SCREEN RESULTS WILL ONLY BE SENT OUT UPON PHYSICIAN ORDER. VISTA Urine Drug Screen methods provide only preliminary analytical test results. A more specific alternate chemical method must be used in order to obtain a confirmed analytical result. Gas chromatography/mass spectrometery (GC/MS) is the preferred confirmatory method. Clinical consideration and professional judgement should be applied to any drug of abuse test result, particularly when preliminary positive results are used. URINE TCA TESTING MUST BE ORDERED SEPARATELY. USE TEST MNEMONIC: [facility] LAB L505.5005 VISTA UDS PH 6 Normal LAB L505.5015 <1000 ng/mL AMPHETAMINES Normal NEGATIVE LAB L505.5025 < 200 ng/mL BARBITIURATES Normal NEGATIVE LAB L505.5035 < 200 ng/mL BENZODIAZIPINE Normal NEGATIVE LAB L505.5045 < 300 ng/mL COCAINE Normal NEGATIVE LAB L505.5055 < 500 ng/mL ECSTACY Normal NEGATIVE LAB L505.5065 < 300 ng/mL METHADONE Normal NEGATIVE LAB L505.5075 < 300 ng/mL OPIATES Normal NEGATIVE LAB L505.5085 < 25 ng/mL PCP Normal NEGATIVE LAB L505.5095 < 50 ng/mL THC Normal NEGATIVE Performed By: #### L505.5000 #### [facility] [address] [facility]. [place], [place], [address] CBC W/DIFF, AUTOMATED Collected: 11/12/2018 Status: F Source: [place] 3:38 PM [facility] REPOSITORY TYPE CODE TESTS RESULT OUT OF RANGE REFERENCE UNITS LAB L100.1000 4.4-11.0 K/mm3 Normal WBC 6.7 LAB L100.1200 4.6-6.2 M/mm3 Normal RBC 4.87 LAB L100.1300 13.0-16.5 g/dl Normal HGB 15.5 LAB L100.1400 40-54 % Normal HCT 42.8 LAB L100.1500 80-94 fL Normal MCV 87.9 LAB L100.1600 27.0-32.0 pg Normal MCH 31.8 LAB L100.1700 32-36 g/gl High MCHC 36.2 LAB L100.1810 11.6-14.6 % Normal RDW CV 13.0 LAB L100.1820 35.1-43.9 fl Normal RDW SD 39.8 LAB L100.1900 150-450 K/mm3 Low PLT 146 LAB L100.2000 6.2-12.0 fl Normal MPV 9.6 LAB L100.2100 47-70 % High NEUT% 77.1 LAB L100.2200 19-41 % Low LY% 14.2 LAB L100.2300 0-10 % Normal MONO% 6.2 LAB L100.2400 0-5 % Normal EO% 2.1 LAB L100.2500 0-1 % Normal BASO% 0.1 LAB L100.2550 0.0-0.9 % Normal IM GRAN % 0.300 Result Comment: IG% - Immature Granulocytes (promyelocytes, myelocytes and metamyelocytes) > 1% indicates that a LEFT SHIFT is Present. LAB L100.2620 2.0-7.7 X10 3/uL Normal Absolute Neut 5.2 LAB L100.2720 0.83-4.51 X10 3/ul Normal Absolute Lymph 0.96 Performed By: #### L100.0100 #### [facility] [address] [place], [place], [id number] PROTHROMBIN TIME W/INR Collected: 11/12/2018 Status: F Source: [place] 3:38 PM [facility] REPOSITORY TYPE CODE TESTS RESULT OUT OF RANGE REFERENCE UNITS LAB L300.4150 11.7-14.9 SECONDS Normal PROTIME 13.2 LAB L300.4200 Normal INR 1.0 Performed By: #### L300.3900 #### [facility] [address] [place], [address] ALCOHOL, BLOOD Collected: 11/12/2018 Status: F Source: [place] (MEDICAL)-SERUM 3:38 PM [facility] REPOSITORY TYPE CODE TESTS RESULT OUT OF RANGE REFERENCE UNITS LAB L501.9100 mg/dL Normal SERUM < 3.0 ETOH Result Comment: The serum:whole blood ethanol ratio is approximately 1.14 and varies slightly with hematocrit. Medical Alcohol reference interval and critical value in non-tolerant individuals; 50 - 100 Impairment 100 Intoxication 100 - 250 Severe Poisoning 250 - 400 Deep/possible fatal coma Performed By: #### L501.9100 #### [facility] [address] [place], [place], [id number] COMPREHENSIVE METABOLIC Collected: 11/12/2018 Status: F Source: [place] PROFIL 3:38 PM [facility] REPOSITORY TYPE CODE TESTS RESULT OUT OF RANGE REFERENCE UNITS LAB L501.0100 74-106 mg/dL Normal GLU 100 Result Comment: Fasting Glucose result from 100 to 125 mg/dL suggests IMPAIRED HOMEOSTASIS per A.D.A. criteria. Please note revised GLUCOSE reference range effective 2017. LAB L501.1000 7-18 mg/dL Normal BUN 7 LAB L501.1100 0.70-1.30 mg/dL Normal CREAT,SERUM 0.95 Result Comment: The validity of the calculated GFR AND GFRAA in patients over 70 years has not been determined. Clinical correlation is essential. LAB L501.1110 >60 mL/min Normal EST GFR 96 Result Comment: Non- GFR Calc LAB L501.1115 >60 mL/min Normal EST GFR - AA 117 Result Comment: GFR Calc LAB L501.1255 ml/min Normal Estimated CRCL 123.82 LAB L501.1300 10-20 RATIO Low BUN/CRE 7.4 LAB L501.1500 6.4-8. g/dL High 2 T PROT 8.4 LAB L501.1800 3.2-5. g/dL 0 ALB Normal 4.7 LAB L501.1950 2.2-4. g/dL 2 GLOB Normal 3.7 LAB L501.2000 0.9-2. RATIO 4 A/G Normal 1.3 LAB L501.2200 8.5-10 mg/dL .1 CA Normal 9.1 LAB L501.4100 15-37 U/L High AST 77 LAB L501.4305 45-117 U/L High ALK P 125 LAB L501.4405 16-61 U/L High ALT 145 LAB L501.4600 0.20-1 mg/dL High .00 T BILI 1.70 LAB L501.5300 136-14 mmol/L 5 NA Normal 137 LAB L501.5600 3.5-5. mmol/L 1 K Normal 3.5 LAB L501.5900 98-107 mmol/L CL Normal 98 LAB L501.6100 21.0-3 mmol/L 2.0 CO2 Normal 29.0 LAB L501.6200 5-15 GAP Normal 10 Performed By: #### L500.4050, L501.2450 #### [facility] [address] [place], [address] LIPASE Collected: 11/12/2018 Status: F Source: [place] 3:38 PM [facility] REPOSITORY TYPE CODE TESTS RESULT OUT OF RANGE REFERENCE UNITS LAB L501.2450 73-393 U/L Normal LIPASE 196 Performed By: #### L500.4050, L501.2450 #### [facility] [address] [place], [address] HISTORY AND PHYSICAL Observed: 11/12/2018 Status: F Source: [place] EXAM 3:33 PM [facility] REPOSITORY [facility] Medical Records Department [address] [place] [address] History and Physical 11/12/18 1524 MR#: [id number] Acct: [id number] Name: TATYANA LOPEZ Rep #: [id number] : 1985 33 From: Belgica Mckeon MD PCP: OUT OF TOWN DOCTOR Status: ADM IN Y [place] [facility] [place] [id number] Problem List (1) Acute alcohol withdrawal Status: Acute (2) Alcohol abuse Status: Chronic (3) GERD (gastroesophageal reflux disease) Status: Chronic (4) Depression Status: Chronic History of Present Illness Date of Admission: 11/12/18 Chief Complaint: Patient came to the [facility] office requesting admission for alcohol abuse detoxification. The patient is a 33 year old M with past medical history as mentioned above presented to the [facility] office today requesting admission for medical stabilization for acute alcohol withdrawal. Patient has been heavily drinking for many many years. He is states that he drinks around 1 gallon of vodka every day and sometimes, he mixed it with beer. His last drink was 2 days ago. His presenting symptoms were severe bad hand tremors, restless and anxiety as well as persistent nausea and vomiting. He stopped drinking Monday and since then, he has been having rapidly increasing bilateral hand tremors, associated with restlessness and anxiety and without aggravating or relieving factors. He reported persistent nausea and vomiting since Monday and he could not keep any food or liquid down to his stomach. He denied abdominal pain. He mentioned that he bought a house few months ago and since then, he has been alone at house and he has been drinking more heavily. Around 1 week ago, he was taken to the hospital because he was intoxicated and lost his consciousness, was admitted for 18 hours and then was discharged home. He denied use of recreational drugs. He is afebrile, heart rate was around 110 and blood pressure was stable. He was a direct admission and there was no blood work done at this time. He is being admitted for acute alcohol withdrawal for medical stabilization. Past Medical History Past Medical History (Chronic Problems): Chronic Problems Alcohol abuse (Chronic) GERD (gastroesophageal reflux disease) (Chronic) Depression (Chronic) Allergies No Known Allergies Allergy (Verified 11/12/18 14:40) Home Medications: Ambulatory Orders Medication Instructions Recorded Azithromycin 250 mg PO BID 11/12/18 Escitalopram Oxalate [Lexapro] 10 mg PO DAILY 11/12/18 Levocetirizine Dihydrochloride 5 mg PO DINNER 11/12/18 [Xyzal] Surgical History: no surgical history Psychiatric History: Depression Lives: Alone Smoking Status: Current some day smoker Tobacco Use: Chew Alcohol: Heavy Drugs: None - *Family History Maternal History Items: - - No family history of hypertension, diabetes or CAD. Paternal History Items: No pertinent history Review of Systems Constitutional: Reports: Anorexia, Malaise. Denies: Chills, Fever, Weakness, Fatigue Eyes: Denies: Blurred vision, Double vision, Drainage, Redness HEENT: Denies: Difficulty Hearing, Ear Pain, Eye Pain, Nasal Congestion, Sore Throat Cardiovascular: Denies: Chest Pain, Chest Pressure, Chest Tightness, Orthopnea, Paroxysmal Noc. Dyspnea, Syncope Respiratory: Reports: Cough. Denies: Hemoptysis, Pleuritic Pain, Shortness of Breath, Sputum production, Wheezing Gastrointestinal: Reports: Nausea, Vomiting. Denies: Abdominal Pain, Constipation, Hematochezia, Melena Genitourinary: Denies: Dysuria, Frequency, Hematuria Musculoskeletal: Denies: Arm Pain, Back Pain, Foot Pain Skin: Denies: Dryness, Rash Neurological: Reports: Tremor. Denies: Balance problems, Double vision, Change in Speech, Slurred speech, Confusion, Focal weakness, Incoordination, Numbness Psychiatric: Reports: Anxiety, Depression VTE Information - Inpt Only VTE Present on Admission: No VTE Mechan Device Prophylaxis: None VTE Pharm Prophylaxis ordered?: No Patient Problems: Active and Suspected Problems Acute alcohol withdrawal (Acute) - Physical Exam General: Alert, Oriented x3, Cooperative, - - Slightly anxious and restless. HEENT: Atraumatic, PERRLA, EOMI, Normocephalic Oral: Moist Mucosa, No Gingival or Mucosal Lesions/ Ulcerations Neck: Supple, No JVD, Negative Carotid Bruits, Trachea Midline, Thyroid Normal Size and Texture Lungs: Clear to auscultation, Normal air movement, No rhonchi, No wheeze, No rales Cardiovascular: Regular rate, Regular Rhythm, Normal S1, Normal S2, PMI Normal Abdomen: Bowel Sounds Present, Soft, Non Tender, Non-Distended, No Hepato-splenomegaly Extremities: No clubbing, No cyanosis Skin: No rashes, No breakdown Lymphatic: No Cervical, Supraclavicular, or Inguinal Adenopathy Neurological: Cranial nerves II-XII grossly intact, Motor Exam 5/5 strength throughout Psych/Mental Status: Normal Affect, Appropriate, Anxious, Alert and oriented to time, place, person, mood and affect Vital Signs Temp Pulse Resp BP 98.8 F 110 H 18 154/97 H 11/12/18 15:00 11/12/18 15:00 11/12/18 15:00 11/12/18 15:00 Weight: 240 lb Body Mass Index (BMI) 31.6 Assessment/Plan All Active Problems Acute alcohol withdrawal (Acute) This is a 33 years old male patient presented to the [facility] office requesting admission for medical stabilization for acute alcohol withdrawal. #1 acute alcohol withdrawal: Patient has been drinking heavily every day, 1 gallon for Daily for many years. Last drink was 2 days ago. At this time, he is slightly tachycardic, other vital signs are stable. Plan: [facility], telemetry, stat CBC and CMP, blood alcohol level, urine drug screen, serum lipase, start [facility] protocol with tapering course of Ativan, folic acid and thiamine as well as vitamin supplement, as needed Bentyl, Tylenol, Vistaril, Imodium, methocarbamol Zofran and trazodone, will do chest x-ray because of hacking cough for more than a week to rule out aspiration pneumonia as patient has been losing his consciousness because of heavy drinking. #2 alcohol abuse: As mentioned above, patient has been drinking heavily for 2 many years, drinks at least 1 gallon of vodka daily in addition to mixing it with beers. Plan as above, blood work as above, [facility] protocol as above. #3 GERD: Continue Protonix. #4 depression: Continue Lexapro. #5 DVT prophylaxis: Low-risk patient, no prophylaxis indicated. Ambulate. This note was generated with Cheggin dictation software. It may contain incorrect words, spelling, and punctuation that were not noted in checking the note before signing. Code Visit Inpatient E AND M: 07920 Init Hosp L2 11/12/18 1533 <Electronically signed by Belgica Mckeon MD> Date Belgica Mckeon MD Cosigner Signature: Date (if applicable) CC: Belgica Mckeon; OUT OF TOWN DOCTOR Signed CHEST PA AND LATERAL Observed: 11/12/2018 Status: F Source: [place] 3:09 PM [facility] REPOSITORY [facility] Imaging Services [address] [place] [id number] Chest PA and Lateral MR#: [id number] Acct: [id number] Name: TATYANA LOPEZ Rep #: [id number] : 1985 M 33 From: Ever Bhatt MD PCP: OUT OF TOWN DOCTOR Status: ADM IN Study: Chest PA and Lateral Date of Exam: 11/12/18 Exam# [id number] Ordering Dr: Belgica Mckeon MD STUDY: X-RAY CHEST REASON FOR EXAM: Male, 33 years old. Cough, chest pain. TECHNIQUE: PA and lateral views of the chest. COMPARISON: None. FINDINGS: Incidental note of an azygos lobe in the medial right apex, an anatomic variant. The lungs are otherwise clear and expanded. There is no demonstrated pleural abnormality. Normal size heart. Normal mediastinum and ashanti. Normal visualized pulmonary arteries. Normal visualized aortic arch and descending thoracic aorta. Normal visualized thoracic spine. Normal visualized ribs, clavicles, and shoulders. There is no demonstrated abnormality of the visualized soft tissue structures of the upper abdomen. RAD/Chest PA and Lateral IMPRESSION: Normal x-ray examination of the chest. Electronically Signed: Manjit Bhatt MD at 19:39 EST , Service support , CC: Belgica Mckeon; OUT OF TOWN DOCTOR Vp Product: Signed CBC Collected: 11/10/2018 Status: F Source: [place] 10:20 PM [place] ([place]) REPOSITORY TYPE CODE TESTS RESULT OUT OF REFERENCE UNITS RANGE LAB WBC 3.6-11.0 /cmm WBC COUNT 6.7 LAB RBC 4.0-6.1 /cmm RBC COUNT 4.96 LAB HGB 14.0-18.0 G/DL HEMOGLOBIN 15.6 LAB HCT 42.0-52.0 % HEMATOCRIT 44.3 LAB MCV 80.0-100.0 FL MCV 89.4 LAB MCH 26.0-35.0 PG MCH 31.4 LAB MCHC 27.0-37.0 G/DL MCHC 35.1 LAB RDW 11.5-14.5 % RDW 13.8 LAB PLTC 130.0-400.0 /cmm PLATELET COUNT 186 LAB MPV 7.4-11.0 FL Low MPV 6.7 LAB DTYPE % DTYPE AUTO DIFF LAB NEUT 37.0-75.0 % NEUTROPHIL 59.0 LAB ALYMP 20.0-55.0 % LYMPHOCYTE 28.8 LAB AOMONO 0.0-10.0 % MONOCYTE 9.1 LAB EOS 0.0-11.0 % EOSINOPHIL 2.2 LAB BASO 0.0-2.0 % BASOPHIL 0.9 LAB ANC 1.0-7.0 x10 ABSOLUTE NEUTROPHIL COUNT 3.9 LAB ALYM X10 ABSOLUTE LYMPHOCYTE 1.90 LAB AMONO X10 ABSOLUTE MONOCYTE 0.6 LAB AEO X10 ABSOLUTE EOS 0.10 LAB ABAS X10 ABSOLUTE BAS 0.1 PROTIME Collected: 11/10/2018 Status: F Source: [place] 10:20 PM [place] REPOSIT[place] TYPE CODE TESTS RESULT OUT OF REFERENCE UNITS RANGE LAB PT1 10.0-13.0 SEC PROTIME 10.8 LAB INR 0.87-1.13 INR 1.00 Result Comment: 2.0-3.0 THERAPEUTIC RANGE 2.5-3.5 PROSTHETIC VALVE RANGE PTT Collected: 11/10/2018 Status: F Source: [place] 10:20 PM [place] REPOS[place] TYPE CODE TESTS RESULT OUT OF RANGE REFERENCE UNITS LAB PTT 24.2-28.6 SEC High PTT 31.0 Result Comment: CARDIAC AND PE/DVT THERAPUTIC RANGE 43-66 SEC VASCULAR/THREATENED LIMB THERAPUTIC RANGE 49-75 SEC BMP FASTING Collected: 11/10/2018 Status: F Source: [place] 10:20 PM [place] REPOSITORY TYPE CODE TESTS RESULT OUT OF REFERENCE UNITS RANGE LAB GLF 70-100 MG/DL High GLUCOSE 113 FASTING Result Comment: NORMAL <100 mg/dL PREDIABETES 101-126 mg/dL DIABETES 126 mg/dL or higher LAB BUN 7-20 MG/DL BLOOD UREA NITROGEN 8 LAB CRET 0.7-1.2 MG/DL CREATININE SERUM 0.9 LAB NA 137-145 MMOL/L SODIUM 143 LAB K 3.5-5.1 MMOL/L POTASSIUM 3.7 LAB CL 98-107 MMOL/L CHLORIDE Low 97 Result Comment: Please note: Triglyceride levels of 600mg/dL or higher may positively bias chloride results by approximately 2.1 mmol LAB CO2 22-30 MMOL/L CO2 High 33 LAB AGAP 8-16 MMOL/L ANION GAP 13 LAB CA 8.4-10.2 MG/DL CALCIUM 8.5 LAB GFR ml/min/1.73s q.m EST. GFR,Non >60 Hungarian LAB GFRB ml/min/1.73s q.m EST. GFR, >60 Hungarian LAB GFRCOM GFR Information Average GFR for 30-39 years old = 109. Result Comment: Chronic Kidney disease, GFR = <60. Kidney failure, GFR = <15. The GFR estimate is not adjusted for extreme body surface area or acute process, nor has it been validated for women or ethnic groups other than and . MAGNESIUM Collected: 11/10/2018 Status: F Source: [place] 10:20 PM [place] REPOSIT[place] TYPE CODE TESTS RESULT OUT OF REFERENCE UNITS RANGE LAB MG 1.6-2.3 MG/DL MAGNESIUM 1.8 ALCOHOL Collected: 11/10/2018 Status: F Source: [place] 10:20 PM [place] REPOS[place] TYPE CODE TESTS RESULT OUT OF REFERENCE UNITS RANGE LAB ALCO 0-10 MG/DL High Alert ALCOHOL 411 Result Comment: INTOXICATION >80 MG/DL FATAL >400 MG/DL CALLED TO AND READ BACK BY LEONOR WATSON IN ER 11.10.189 [place] XR CHEST PA AND Observed: 11/07/2018 Status: F Source: [place] LATER[place] 8:17 PM [place] REPOSITORY XR CHEST PA AND LATERAL 11/07/2018 8:17 PM EST Indication: cough Technique: Routine radiographs of the chest were obtained. Comparison: None. Findings: The lungs are adequately inflated. No acute rib fractures, pneumothorax or mediastinal shift. No consolidation, edema, or effusion. Heart is normal in size and contour. Impression: No acute findings. CT HEAD WITHOUT Observed: 06/22/2018 Status: F Source: [place] CONTRAST 2:53 PM [place] REPOSITORY EXAM: CT HEAD WITHOUT CONTRAST CLINICAL STATEMENT: Syncope. COMPARISON: None. TECHNIQUE: CT examination of the head without IV contrast. Dose reduction techniques were achieved by using automated exposure control and/or adjustment of mA and/or kV according to patient size and/or use of iterative reconstruction technique. FINDINGS: No skull fracture. Normal ventricles and sulci. No mass or midline shift and no extra-axial fluid collection. IMPRESSION: Normal CT brain. CBC Collected: 06/22/2018 Status: F Source: [place] 2:40 PM [place] REPOSITORY TYPE CODE TESTS RESULT OUT OF REFERENCE UNITS RANGE LAB WBC 3.6-11.0 /cmm WBC COUNT 5.0 LAB RBC 4.0-6.1 /cmm RBC COUNT 5.05 LAB HGB 14.0-18.0 G/DL HEMOGLOBIN 15.4 LAB HCT 42.0-52.0 % HEMATOCRIT 43.7 LAB MCV 80.0-100.0 FL MCV 86.6 LAB MCH 26.0-35.0 PG MCH 30.5 LAB MCHC 27.0-37.0 G/DL MCHC 35.2 LAB RDW 11.5-14.5 % RDW 13.1 LAB PLTC 130.0-400.0 /cmm PLATELET COUNT 176 LAB MPV 7.4-11.0 FL MPV 7.9 LAB DTYPE % DTYPE AUTO DIFF LAB NEUT 37.0-75.0 % NEUTROPHIL 52.6 LAB LYMP 20.0-55.0 % LYMPHOCYTE 34.7 LAB AOMONO 0.0-10.0 % MONOCYTE High 10.4 LAB EOS 0.0-11.0 % EOSINOPHIL 1.7 LAB BASO 0.0-2.0 % BASOPHIL 0.6 LAB ANC 1.0-7.0 x10 ABSOLUTE NEUTROPHIL COUNT 2.6 LAB ALYM X10 ABSOLUTE LYMPHOCYTE 1.70 LAB AMONO X10 ABSOLUTE MONOCYTE 0.5 LAB AEO X10 ABSOLUTE EOS 0.10 LAB ABAS X10 ABSOLUTE BAS 0.0 CHEM 7 FASTING Collected: 06/22/2018 Status: F Source: [place] 2:40 PM [place] REPOSITORY TYPE CODE TESTS RESULT OUT OF REFERENCE UNITS RANGE LAB GLF 70-100 MG/DL GLUCOSE 99 FASTING Result Comment: NORMAL <100 mg/dL PREDIABETES 101-126 mg/dL DIABETES 126 mg/dL or higher LAB BUN 7-20 MG/DL BLOOD UREA High NITROGEN 21 LAB CRET 0.7-1.2 MG/DL CREATININE SERUM 1.0 LAB NA 137-145 MMOL/L SODIUM 139 LAB K 3.5-5.1 MMOL/L POTASSIUM 4.7 LAB CL 98-107 MMOL/L CHLORIDE 101 LAB CO2 22-30 MMOL/L CO2 29 LAB GFR ml/min/1.73 sq.m EST. GFR,Non >60 LAB GFRB ml/min/1.73 sq.m EST. GFR, >60 Hungarian LAB GFRCOM GFR Information Average GFR for 30-39 years old = 109. Result Comment: Chronic Kidney disease, GFR = <60. Kidney failure, GFR = <15. The GFR estimate is not adjusted for extreme body surface area or acute process, nor has it been validated for women or ethnic groups other than and . RAPID TOX SCREEN,URINE Collected: 02/07/2018 Status: F Source: [place] 12:05 PM [place] REPOSITORY TYPE CODE TESTS RESULT OUT OF REFERENCE UNITS RANGE LAB THCMT NEGATIVE NG/ML CANNABINOIDS NEGATIVE Result Comment: <50 ng/ml CUTOFF LAB PCPMT NEGATIVE NG/ML PHENCYCLIDINE NEGATIVE Result Comment: <25 ng/ml CUTOFF LAB COCMT NEGATIVE NG/ML COCAINE NEGATIVE Result Comment: <150 ng/ml CUTOFF LAB MAMPMT NEGATIVE NG/ML METHAMPHETAMINE NEGATIVE Result Comment: <500 ng/ml CUTOFF LAB OPIMT NEGATIVE NG/ML OPIATES NEGATIVE Result Comment: <100 ng/ml CUTOFF LAB AMPMT NEGATIVE NG/ML AMPHETAMINE NEGATIVE Result Comment: <500 ng/ml CUTOFF LAB BZOMT NEGATIVE NG/ML BENZODIAZEPINES NEGATIVE Result Comment: <150 ng/ml CUTOFF LAB TCAMT NEGATIVE NG/ML TRICYCLIC ANTIDEPRESSANTS NEGATIVE Result Comment: <300 ng/ml CUTOFF LAB MTDMT NEGATIVE NG/ML METHADONE NEGATIVE Result Comment: <200 ng/ml CUTOFF LAB BARMT NEGATIVE NG/ML BARBITURATES NEGATIVE Result Comment: <200 ng/ml CUTOFF LAB OXYMT NEGATIVE NG/ML OXYCODONE NEGATIVE Result Comment: <100 ng/ml CUTOFF LAB PPXMT NEGATIVE NG/ML PROPOXYPHENE NEGATIVE Result Comment: <300 ng/ml CUTOFF LAB BUPMT NEGATIVE NG/ML BUPRENORPHINE NEGATIVE Result Comment: <10 ng/ml CUTOFF Performed By: #### FX #### [place] [address] FAX REQUEST Collected: 02/07/2018 Status: F Source: [facility] 12:05 PM [place] ([place] REPOSITORY TYPE CODE TESTS RESULT OUT OF REFERENCE UNITS RANGE LAB FAXTO [phone] FAX [phone] TO Performed By: #### FX #### [place] [address] ALLERGIES ALLERGIES DATE TYPE / CODE NAME / CODE REACTION SEVERITY SOURCE 11/12/2018 Drug No Known Unknown Anjana [facility] Allergy/416 Allergies/W20701 Hospital 829397(SNOM 0388(RXNORM) Repository ED CT) Drug NO KNOWN [facility] Class/42575 ALLERGIES Repository 1003(SNOMED CT) ENCOUNTERS ENCOUNTERS ADMIT/DISCHARGE ACCOUNT NUMBER ADMITTING ENCOUNTER LOCATION SOURCE CLASS 11/12/2018/11/15/19 [id number] Mike, Inpatient Anjana Anjana 19 Ghasem Encounter [facility] ding:[id number] Repository : TW175Ngc: 1 11/12/2018 [id number] [facility], Ambulatory BMSBuilding: Sharon Ghasem BMS.WIP [facility] Repository 11/12/2018 [id number] [place], Ambulatory BMSBuilding: Sharon Ghasem BMS.[facility] Repository 11/12/2018 [id number] [place], Ambulatory BMSBuilding: Anjana Ghasem BMS.[facility] Repository 11/12/2018 [id number] [place], Ambulatory BMSBuilding: Sharon Ghasem BMS.[facility] Repository 11/10/2018/11/11/19 [id number] [address] [place] [address] EDRoom: [place] ([place]) [id number]: Repository E002 11/07/2018/11/07/19 [id number] [address] [place] [address] EDRoom: [place] S592Iwd: Repository E001 10/26/2018 [id number] Ambulatory Building:[facility] Three D Repository 08/30/2018 [id number] Ambulatory Building:[facility] Three D Repository 07/05/2018/07/05/20 [id number] Ambulatory Building:[place] [address] [address] YAVE Repository 06/22/2018/06/22/20 [id number] Emergency [address] [place] [address] EDRoom: [place] ([place]) [id number]: Repository E003 02/15/2018 [id number] Ambulatory Building:[facility] Repository 02/07/2018 [id number] Ambulatory [address] [place] [address] System ([place]) Repository 01/31/2018 [id number] Ambulatory [address] [place] [address] ([place]) Repository 01/29/2018/01/30/20 [id number] VANNA REYNOLDS Ambulatory Building:[place] [address] [address] One Repository PAYERS PAYERS ENCOUNTER GUARANTOR PAYER SUBSCRIBER SOURCE 11/12/2018 TATYANA [id number] Primary TATYANA Kennedy GLENELG [facility] LIGHTDOB: [facility] Number: [id number] Hospital [address]Rrc: [phone]) [id number] Repository [phone] () Date:2018-11-12 [address]ATTN: [place] [address]CK: 11/12/2018 Secondary NOT GIVENUNK Sharon Insurance:SELF PAY [facility] Number: Effective Repository Date:2018-11-12 11/12/2018 TATYANA A [id number] Primary TATYANA A Anjana [place] Insurance:CARESOURCEP LIGHTDOB[place] Number: [id number] Hospital [address]Hwy: [phone] [id number] Repository [phone] () Date:2018-11-12P [address]ATTN: [place] [address]AA: 11/12/2018 Secondary NOT GIVENUNK Anjana Insurance:SELF PAY [facility] Number: Effective Repository Date:2018-11-12 11/12/2018 TATYANA A [id number] Primary TATYANA A Anjana [place] Insurance:CARESOURCEP LIGHTDOB: [facility] [place] Number: [id number] Hospital [address]Erp: [phone] [id number] Repository [phone] () Date:2018-11-12P [address]ATTN: [place] [address]OV: 11/12/2018 Secondary NOT GIVENUNK Sharon Insurance:SELF PAY [facility] Number: Effective Repository Date:2018-11-12 11/12/2018 TATYANA A [id number] Primary TATYANA A Anjana [place] Insurance:CARESOURCEP LIGHTDOB: [facility] [place] Number: [id number] Hospital [address]Iji: [phone] [id number] Repository [phone] () Date:2018-11-12P [address]ATTN: [place] [address]JA: 11/12/2018 Secondary NOT GIVENUNK Anjana Insurance:SELF PAY [facility] Number: Effective Repository Date:2018-11-12 11/12/2018 TATYANA A [id number] Primary TATYANA A Sharon [place] Insurance:CARESOURCEP LIGHTDOB: [place] Number: [id number] [facility] [address]Lvw: [phone] [id number] Repository [phone] (HP) Date:2018-11-12 [address]ATTN: [place] [address]VK: 11/12/2018 Secondary NOT GIVENUNK Anjana Insurance:SELF PAY [facility] Number: Effective Repository Date:2018-11-12 10/26/2018 TATYANA A Primary TATYANA A [facility] LIGHTDOB: Insurance:CARESOURCE LIGHTDOB: Three Repository MANAGED [id number], MEDICAIDPolicy [address] [place] [address]Kad: Number: [place] [id number]: [phone] (HP) Date:1938-87-54[phone] (HP) [address] [place] [address]DC: 10/26/2018 Secondary TATYANA A [facility] Insurance:MEDICAIDPol LIGHTDOB: Three Repository icy Number: [id number] [address] Date:2016-07-26 - [facility] [place] [place] [id number] [address]Wvx: [phone], [place] [phone] (HP) [address]BI: 08/30/2018 TATYANA A Primary TATYANA A [facility] LIGHTDOB: Insurance:CARESOURCE LIGHTDOB: Three Repository MANAGED [id number], MEDICAIDPolicy [address] [place] [address]Hws: Number: [place] [id number]: ([phone]) (HP) Date:0927-17-04XD [phone] (HP) [place] [address]XP: 07/05/2018 TATYANA A Primary TATYANA A [facility] LIGHTDOB: [facility] LIGHT[facility]: Three Repository MANAGED [id number], MEDICAIDPolicy [address] [place] [address]Iqs: Number: [place] [id number]: [phone] (HP) Date:4997-51-50MD [phone] (HP) [address] [place] [address]JX: 02/15/2018 TATYANA A Primary TATYANA A [facility] LIGHTDOB: Insurance[facility] LIGHTDOB: [place] [facility] Number: [id number] [facility] [id number] [address] [place], [place] Date:9643-84-91[place], [place] Repository [address]Kys: ([phone]) Name:JEFF [address]Agy: (HP) [phone] (HP) 01/29/2018 TATYANA A Primary TATYANA A [facility] LIGHTDOB: [facility] LIGHTDOB: Repository MANAGED [id number], MEDICAIDPolicy [address] [place] [address]Fuq: Number: ROSE MARY MOREJON [id number] [id number]: [phone] (HP) Date:2582-15-48NF [phone] (HP) [address] [place] [phone]:
== END 2018-11-15 14:32 | disposition home or self-care (01) | DRG 775 ==
PROVIDERS: Admitting Provider Hospitalist; Referring Provider Hospitalist; Visit Provider Student in an Organized Health Care Education/Training Program
DX: F10.239 Alcohol dependence with withdrawal, unspecified (principal); K21.9 Gastro-esophageal reflux disease without esophagitis; F32.9 Major depressive disorder, single episode, unspecified
CPT/HCPCS: 71046; 80053; 80307; 80320; 83690; 85025; 85610; G0480

== ENCOUNTER 2018-12-03 17:54 | Inpatient (IN) | payer MEDICAID, SELFPAY ==
[2018-11-12 14:38] VITALS: BMI 31.6
[2018-12-03 17:55] VITALS: BP 168/89; PULSE 92; RESP 16; TEMP 35.9; O2SAT 97; BMI 33.0
--- NOTE | 2018-12-03 18:05 | EKG12_ITS ---
Test Reason : PALPITATIONS Blood Pressure : / mmHG Vent. Rate : 080 BPM Atrial Rate : 080 BPM P-R Int : 158 ms QRS Dur : 090 ms QT Int : 368 ms P-R-T Axes : 047 034 018 degrees QTc Int : 424 ms Normal sinus rhythm Normal ECG Confirmed by BISHNU CURTIS, KEL ([id number]), purchasing expeditor CONSTANZA TIMMONS ([id number]) on 12/07/2018 8:48:12 AM Referred By: Sam Perry Confirmed By:KEL GOETZ MD
[2018-12-03] MEDS: 0.9% Normal Saline 1,000 ML 1000 ML IV (18:14)
[2018-12-03 18:27] LABS: Absolute Lymphocyte Count 1.26 X10^3/ul (0.83-4.51); Absolute Neutrophil Count 4.2 X10^3/uL (2.0-7.7); Basophil# 0.01 X10^3/uL; Basophil% 0.2 % (0-1); Eosinophil# 0.03 X10^3/uL; Eosinophils% 0.5 % (0-5); Hematocrit 45.2 % (40-54); Hemoglobin 15.4 g/dl (13.0-16.5); Lymphocyte # 1.26 X10^3/ul (4.0); Lymphocyte % 20.5 % (19-41); Mean Corp Hgb Conc 34.1 g/gl (32-36); Mean Corpuscular Hgb 30.9 pg (27.0-32.0); Mean Corpuscular Volume 90.8 fL (80-94); Mean Platelet Vol. 9.4 fl (6.2-12.0); Monocyte# 0.66 X10^3/uL; Monocyte% 10.7 % (0-10); Neutrophil # 4.16 X10^3/uL (2.7-7.7); Neutrophil % 67.8 % (47-70); POSITIVE COUNT NO; POSITIVE DIFFERENTIAL NO; POSITIVE MORPHOLOGY NO; Platelet Count 206 K/mm3 (150-450); RBC Distribution Width CV 13.6 % (11.6-14.6); RBC Distribution Width SD 43.9 fl (35.1-43.9); Red Blood Count 4.98 M/mm3 (4.6-6.2); White Blood Count 6.1 K/mm3 (4.4-11.0)
[2018-12-03 18:39] LABS: Amphetamine Urine VISTA NEGATIVE (<1000 ng/mL); Barbiturate Urine VISTA NEGATIVE (< 200 ng/mL); Benzodiazepine Urine VISTA NEGATIVE (< 200 ng/mL); Cocaine Urine VISTA NEGATIVE (< 300 ng/mL); Ecstacy Urine VISTA NEGATIVE (< 500 ng/mL); Methadone Urine VISTA NEGATIVE (< 300 ng/mL); PCP Urine VISTA NEGATIVE (< 25 ng/mL); THC Urine VISTA POSITIVE (< 50 ng/mL); Vista UDS pH Range 6
[2018-12-03 18:40] LABS: ALB/GLOB Ratio 1.1 RATIO (0.9-2.4); AST(SGOT) 99 U/L (15-37); Alanine Aminotransfer ALT/SGPT 135 U/L (16-61); Albumin, Serum 4.4 g/dL (3.2-5.0); Alkaline Phosphatase 125 U/L (45-117); Anion Gap 7 (5-15); BUN 11 mg/dL (7-18); BUN/Creat Ratio 10.2 RATIO (10-20); Calcium,Total 8.9 mg/dL (8.5-10.1); Chloride 98 mmol/L (98-107); Creatinine, Serum 1.08 mg/dL (0.70-1.30); EST Glomerular Filtration Rate 83 mL/min (>60); Est Glom Filt Rate - Afr Amer 101 mL/min (>60); Estimated Creatinine Clearance 108.92 ml/min; Globulin 3.9 g/dL (2.2-4.2); Glucose 101 mg/dL (74-106); Potassium 3.3 mmol/L (3.5-5.1); Protein, Total 8.3 g/dL (6.4-8.2); Sodium Level 137 mmol/L (136-145)
--- NOTE | 2018-12-03 19:09 | ED.DCSUM_ITS ---
- ER Visit Summary Date of Service: 12/03/18 Chief Complaint: Alcohol withdrawal History of Present Illness: The patient is a 33 M presents to the emergency department alcohol withdrawal. Patient has a long-standing history of alcohol abuse. He drinks about 1/5 of vodka a day. His last drink was on Monday. He states that he has been having withdrawal symptoms. He states his been restless, nauseated, and tremulous. He was actually recently admitted through the [facility]. He followed up with his counselor today and they try to get him admitted directly as an outpatient, but were unable to arrange it. He was sent into the for further evaluation. He denies being suicidal or homicidal. He denies any abdominal pain. Physical Examination: Vital signs reviewed General: Well-nourished, well-developed Head: Normocephalic, atraumatic Eyes: Pupils equal and reactive, extraocular muscles intact Neck, supple, no lymphadenopathy Heart: Regular rate and rhythm Respiratory: No distress, clear bilaterally Abdomen: Soft, nontender, nondistended, no peritoneal signs Back: Nontender Extremities: Nontender, no edema, no cords Skin: Normal color no rash Neuro: Alert and oriented, no focal or lateralizing deficits Test Results: [] Emergency Department Course and Treatment: The patient presents to the emergency department out of withdrawal symptoms. IV was established. Screening labs were obtained. He does have mild elevation of his LFTs which I feel is consistent with his chronic alcohol abuse. The patient was referred here for [facility]. Fortunately, after 5 PM. I did have our social sciences research scientist discussed this with the [facility]. They were comfortable with plan for admission. The patient does have a C waw score of 22. He is given IV Ativan. The patient was discussed with the hospitalist for admission. Treatment Plan: [] Disposition: 1 admission Impression: 1. Acute alcohol withdrawal This note was generated with [employer] dictation software. It may contain incorrect words, spelling, and punctuation that were not noted in review of the chart prior to signing ED Disposition - Plan for ED Patient: Referrals: [facility] Doctor,Out of [Primary Care Provider] -
[2018-12-03 20:00] VITALS: BP 139/95; PULSE 100; RESP 19; O2SAT 94
--- NOTE | 2018-12-03 20:12 | CM.ED ---
Social Work Note Placed call to Kaitlynn Agrawal who is not in the office at this time. Because she cannot evaluate the pt she cannot confirm he would be admitted to [facility] based on criteria however states he is not ineligible simply because he went through the program within the last month. Pt to be admitted and evaluated tomorrow to see if meets admission criteria for [facility]. Landy Dixon, CERTIFIED NURSES' AIDE, SEED BUYER
[2018-12-03] MEDS: LORazepam 2 MG/ML Syringe 1 MG IV (20:47)
--- NOTE | 2018-12-03 22:19 | HP.PCM_ITS ---
Problem List (1) Acute alcohol withdrawal Status: Acute (2) Alcohol abuse Status: Chronic (3) GERD (gastroesophageal reflux disease) Status: Chronic (4) Depression Status: Chronic History of Present Illness Date of Admission: 12/03/18 Chief Complaint: alcohol withdrawal The patient is a 33 year old M with a significant history of GERD; depression and anxiety disorder who was recently admitted on 11/12/2018 and discharged on 11/15/2018 with acute alcohol withdrawal presenting again with alcohol withdrawal symptoms that started about a day before his admission. His last drinking was about 2 days ago. He reports his symptoms as chills, tremors, numbness and tingling of extremities, joint soreness, restless legs and fatigue. Emergency doctor reported that the case was discussed with [facility] and [facility] is ready to take patient. Past Medical History Past Medical History (Chronic Problems): Chronic Problems Alcohol abuse (Chronic) GERD (gastroesophageal reflux disease) (Chronic) Depression (Chronic) Allergies No Known Allergies Allergy (Verified 12/03/18 18:04) Home Medications: Ambulatory Orders Medication Instructions Recorded Escitalopram Oxalate [Lexapro] 10 mg PO DAILY 11/12/18 Levocetirizine Dihydrochloride 5 mg PO DINNER 11/12/18 [Xyzal] Loratadine [Claritin] 10 mg PO DAILY 11/12/18 Pantoprazole Sodium [Protonix] 40 mg PO DAILY 11/12/18 Ranitidine [Zantac] 300 mg PO BID 11/12/18 traZODone [Desyrel] 50 mg PO QHS PRN 11/12/18 Bupropion HCl [Bupropion Xl] 150 mg PO DAILY 12/03/18 hydrOXYzine pamoate capsule 25 mg PO 4X/DAY PRN PRN 12/03/18 [Vistaril pamoate capsule] Surgical History: no surgical history Psychiatric History: Anxiety, Depression Smoking Status: Current some day smoker Tobacco Use: Chew - *Family History Maternal History Items: - - No family history of hypertension, diabetes, CAD or alcohol. Paternal History Items: - - Reports alcoholism Review of Systems Constitutional: Reports: Chills. Denies: Fever, Weight Change HEENT: Denies: Head Aches, Sinus Congestion, Sinus Drainage Cardiovascular: Denies: Chest Pain, Palpitations Respiratory: Denies: Cough, Shortness of breath at rest, Sputum production Gastrointestinal: Reports: Nausea. Denies: Abdominal Pain, Vomiting Genitourinary: Denies: Dysuria Musculoskeletal: Reports: Joint Pain Skin: Denies: Rash, Wounds Neurological: Reports: Numbness, Tingling. Denies: Focal weakness Psychiatric: Reports: Anxiety, Depression. Denies: Homicidal Ideations, Suicidal Ideations Hematologic/ Lymphatic: Denies: Easy Bruising, Easy Bleeding VTE Information - Inpt Only VTE Present on Admission: No VTE Mechan Device Prophylaxis: None VTE Pharm Prophylaxis ordered?: No Reason prophylaxis not ordered:: Treatment Not Indicated - Low risk. Ambulate - Physical Exam General: Alert, Oriented x3, Cooperative HEENT: Atraumatic, PERRLA, EOMI, Normocephalic Neck: Supple, No JVD, Negative Carotid Bruits Lungs: Clear to auscultation, Normal air movement Cardiovascular: Regular rate, No murmurs Abdomen: Bowel Sounds Present, Soft, Non Tender Extremities: No edema, Capillary Refill Less than 3 Seconds Skin: No rashes, No breakdown Musculoskeletal: No Muscle Wasting Neurological: Neuro grossly intact Psych/Mental Status: - - very Talkative Vital Signs Temp Pulse Resp BP Pulse Ox 96.6 F L 100 19 H 139/95 H 94 12/03/18 17:55 12/03/18 20:00 12/03/18 20:00 12/03/18 20:00 12/03/18 20:00 Oxygen Delivery Method Room Air Weight: 113.398 kg Body Mass Index (BMI) 33.0 Laboratory Tests Past 24 Hrs 12/03/18 12/03/18 12/03/18 18:15 18:17 18:17 WBC 6.1 RBC 4.98 Hgb 15.4 Hct 45.2 MCV 90.8 MCH 30.9 MCHC 34.1 RDW 13.6 RDW Differential 43.9 Plt Count 206 MPV 9.4 Immature Gran % (Auto) 0.300 Neut % (Auto) 67.8 Lymph % (Auto) 20.5 [place] % (Auto) 10.7 H Eos % (Auto) 0.5 Baso % (Auto) 0.2 Absolute Neuts (auto) 4.2 Absolute Lymphs (auto) 1.26 Total Counted Not Reportable Sodium 137 Potassium 3.3 L Chloride 98 Carbon Dioxide 32.0 Anion Gap 7 BUN 11 Creatinine 1.08 Estim Creat Clear Calc 108.92 Est GFR (MDRD) Af Amer 101 Est GFR (MDRD) Non-Af 83 BUN/Creatinine Ratio 10.2 Glucose 101 Calcium 8.9 Total Bilirubin 1.80 H AST 99 H ALT 135 H Alkaline Phosphatase 125 H Total Protein 8.3 H Albumin 4.4 Globulin 3.9 Albumin/Globulin Ratio 1.1 Urine Opiates Screen NEGATIVE Urine Methadone Screen NEGATIVE Ur Barbiturates Screen NEGATIVE Ur Phencyclidine Scrn NEGATIVE Ur Amphetamines Screen NEGATIVE U Methamphetamin-MDMA NEGATIVE U Benzodiazepines Scrn NEGATIVE Urine Cocaine Screen NEGATIVE U Cannabinoids Screen POSITIVE H Ur Drug Screen Comment Ethyl Alcohol 12/03/18 18:17 WBC RBC Hgb Hct MCV MCH MCHC RDW RDW Differential Plt Count MPV Immature Gran % (Auto) Neut % (Auto) Lymph % (Auto) [place] % (Auto) Eos % (Auto) Baso % (Auto) Absolute Neuts (auto) Absolute Lymphs (auto) Total Counted Sodium Potassium Chloride Carbon Dioxide Anion Gap BUN Creatinine Estim Creat Clear Calc Est GFR (MDRD) Af Amer Est GFR (MDRD) Non-Af BUN/Creatinine Ratio Glucose Calcium Total Bilirubin AST ALT Alkaline Phosphatase Total Protein Albumin Globulin Albumin/Globulin Ratio Urine Opiates Screen Urine Methadone Screen Ur Barbiturates Screen Ur Phencyclidine Scrn Ur Amphetamines Screen U Methamphetamin-MDMA U Benzodiazepines Scrn Urine Cocaine Screen U Cannabinoids Screen Ur Drug Screen Comment Ethyl Alcohol 10.0 Assessment/Plan All Active Problems Acute alcohol withdrawal (Acute) The patient is a 33 year old M with a significant history of GERD; depression and anxiety disorder who was recently admitted on 11/12/2018 and discharged on 11/15/2018 with acute alcohol withdrawal presenting again with alcohol withdrawal symptoms. Alcohol dependence with acute withdrawal On presentation his ethanol level was 10 JEMMA 10 showed cannabinoids Will placed on CIWA protocol with Librium taper; multivitamins; folic acid and thiamine. Vistaril and Claritin continued Zofran as needed Counseled [facility] consult Anxiety depression Wellbutrin and Lexapro continued Insomnia Trazodone as needed GERD Protonix and Zantac's continued Tobacco abuse Chews tobacco Refused nicotine patch. [employer] Grade Teacher Marijuana abuse Noted to have positive cannabinoids on urine screen [employer] Grade Teacher Elevated transaminitis AST and ALT elevated but not in the ratio of 2 is to 1 as typical of alcoholism. Diagnoses include hepatitis secondary to alcoholism or fatty liver disease. Counselled Patient to follow up outpatient. DVT Prophylaxis Low risk Ambulate. Code Visit Inpatient E&M: 13951 Init Hosp L3
[2018-12-03 22:39] VITALS: BP 134/95; PULSE 92; RESP 18; O2SAT 94
[2018-12-03 22:53] VITALS: BMI 32.1
[2018-12-03 23:05] VITALS: BMI 32.1
[2018-12-03 23:25] VITALS: O2SAT 97
[2018-12-03 23:26] VITALS: BP 135/90; PULSE 93; RESP 16; TEMP 36.6; O2SAT 97
[2018-12-03] MEDS: chlordiazePOXIDE 25 MG Capsule PO (23:49)
[2018-12-03] MEDS: hydrOXYzine PAM 25 MG Capsule PO (23:49)
[2018-12-03 23:52] VITALS: PULSE 84; RESP 16
[2018-12-04] VITALS (8 sets, daily range): BP systolic 115–133; BP diastolic 70–90; PULSE 77–89; RESP 16–18; TEMP 36.7–37.2; O2SAT 95–100
[2018-12-04] MEDS: chlordiazePOXIDE 25 MG Capsule PO ×3 (05:54→16:56)
--- NOTE | 2018-12-04 09:53 | CASEMGMT ---
Social Work Note SW spoke with Kaitlynn Agrawal from [facility]. Kaitlynn Agrawal states she will see pt to discuss options regarding substance abuse. Veena Hayden TRANSPLANT NURSE PRACTITIONER, [employer]
--- NOTE | 2018-12-04 10:15 | PCM.PN.HOSP ---
Subjective: Patient seen and examined. He was admitted for alcohol acute alcohol withdrawal through [facility] protocol. He had a good night sleep. He denies any fever or chills, palpitations or dizziness, tremors, abdominal pain, diarrhea vomiting. Review of systems otherwise negative. Vitals/I&O's: Vital Signs Temp Pulse Resp BP Pulse Ox 98.1 F 85 16 132/89 H 97 12/04/18 06:00 12/04/18 06:00 12/04/18 06:00 12/04/18 06:00 12/04/18 06:34 Oxygen Delivery Method Room Air Weight: 243 lb 1.6 oz Body Mass Index (BMI) 32.1 Intake and Output for Last 24 Hours 12/02/18 12/03/18 12/04/18 23:59 23:59 23:59 Intake Total 440 / 440 Balance 440 / 440 General: Alert, Oriented x3, Cooperative, No apparent distress HEENT: Atraumatic, PERRLA, EOMI, Normocephalic Oral: Moist Mucosa Neck: Supple, No JVD, Negative Carotid Bruits Lungs: Clear to auscultation, Normal air movement, No rhonchi, No wheeze, No rales Cardiovascular: Regular rate, Regular Rhythm, Normal S1, Normal S2, No murmurs Abdomen: Bowel Sounds Present, Soft, Non Tender, Non-Distended, No Hepato-splenomegaly Extremities: No clubbing, No cyanosis, No edema, Capillary Refill Less than 3 Seconds Skin: No rashes, No breakdown Musculoskeletal: No Tenderness to Palpation of Joints or Extremities Lymphatic: No Cervical, Supraclavicular, or Inguinal Adenopathy Neurological: Cranial nerves II-XII grossly intact, Neuro grossly intact, Motor Exam 5/5 strength throughout Psych/Mental Status: Flat Affect, Alert and oriented to time, place, person, mood and affect Laboratory Results 12/03/18 18:15: Urine Opiates Screen NEGATIVE, Urine Methadone Screen NEGATIVE, Ur Barbiturates Screen NEGATIVE, Ur Phencyclidine Scrn NEGATIVE, Ur Amphetamines Screen NEGATIVE, U Methamphetamin-MDMA NEGATIVE, U Benzodiazepines Scrn NEGATIVE, Urine Cocaine Screen NEGATIVE, U Cannabinoids Screen POSITIVE H, Ur Drug Screen Comment 12/03/18 18:17: WBC 6.1, RBC 4.98, Hgb 15.4, Hct 45.2, MCV 90.8, MCH 30.9, MCHC 34.1, RDW 13.6, RDW Differential 43.9, Plt Count 206, MPV 9.4, Immature Gran % (Auto) 0.300, Neut % (Auto) 67.8, Lymph % (Auto) 20.5, [place] % (Auto) 10.7 H, Eos % (Auto) 0.5, Baso % (Auto) 0.2, Absolute Neuts (auto) 4.2, Absolute Lymphs (auto) 1.26, Total Counted Not Reportable 12/03/18 18:17: Sodium 137, Potassium 3.3 L, Chloride 98, Carbon Dioxide 32.0, Anion Gap 7, BUN 11, Creatinine 1.08, Estim Creat Clear Calc 108.92, Est GFR (MDRD) Af Amer 101, Est GFR (MDRD) Non-Af 83, BUN/Creatinine Ratio 10.2, Glucose 101, Calcium 8.9, Total Bilirubin 1.80 H, AST 99 H, ALT 135 H, Alkaline Phosphatase 125 H, Total Protein 8.3 H, Albumin 4.4, Globulin 3.9, Albumin/Globulin Ratio 1.1 12/03/18 18:17: Ethyl Alcohol 10.0 Current Medications Bisacodyl (Dulcolax) 5 mg PO DAILY PRN PRN PRN Reason: Constipation Bupropion HCl (Wellbutrin Xl) 150 mg PO DAILY [facility] Chlordiazepoxide (Librium) 50 mg PO Q6H [facility]; Taper Stop: 12/07/18 01:29 Last Admin: 12/04/18 05:54 Dose: 50 mg Escitalopram Oxalate (Lexapro) 10 mg PO DAILY [facility] Famotidine (Pepcid) 40 mg PO BID [facility]olic [facility] ([facility] Guaifenesin (Mucinex) 600 mg PO Q12H PRN PRN PRN Reason: CHEST CONGESTION/SECRETIONS Hydroxyzine Pamoate (Vistaril Pamoate Capsule) 25 mg PO 4X/DAY PRN PRN PRN Reason: ANXIETY Last Admin: 12/03/18 23:49 Dose: 25 mg Loratadine (Claritin) 10 mg PO DAILY [facility] Magnesium Hydroxide (Milk Of Magnesia) 30 ml PO DAILY PRN PRN PRN Reason: Constipation Multivitamins (Multivitamin) [facility] Ondansetron HCl (Zofran Odt) 4 mg PO Q6H PRN PRN PRN Reason: NAUSEA Pantoprazole Sodium (Protonix) 40 mg PO DAILY KATTY Sodium Chloride () 5 - 15 ml IV UD PRN PRN Reason: SALINE FLUSH Thiamine HCl (Vitamin B1) 100 mg PO DAILYCM KATTY Trazodone HCl (Desyrel) 50 mg PO QHS PRN PRN Reason: SLEEP Medical Necessity - Tobacco Use Smoking Status: Current some day smoker Tobacco Use: Chew Assessment/Plan All Active Problems Acute alcohol withdrawal (Acute) 1. Acute alcohol withdrawal on alcohol withdrawal protocol with ativan on folic acid, multivites and thiamine CIWA score was 14 today will monitor CIWA score 2. HYpokalemia: K was 3.3. Will replace and monitor 3. Anxiety and depression: on wellbutrin and lexapro 4. Insomnia: on trazodone prn 5. GERD: PPI 6. Nicotine dependence: Counseled to quit. Refused nicotine patch on admission. . Elevated liver enzymes: Total bilirubin was 1.8 on admission with AST of 99, ALT of 135 and ALP of 125. Likely due to alcohol intake. These are around his baseline Will monitor. DVT prophylaxis: encourage ambulation Code Visit Inpatient E&M: 59597 Subs Hosp L2
--- NOTE | 2018-12-04 10:21 | PN_ITS ---
Subjective: Patient seen and examined. He was admitted for alcohol acute alcohol withdrawal through [facility] protocol. He had a good night sleep. He denies any fever or chills, palpitations or dizziness, tremors, abdominal pain, diarrhea vomiting. Review of systems otherwise negative. Vitals/I&O's: Vital Signs Temp Pulse Resp BP Pulse Ox 98.1 F 85 16 132/89 H 97 12/04/18 06:00 12/04/18 06:00 12/04/18 06:00 12/04/18 06:00 12/04/18 06:34 Oxygen Delivery Method Room Air Weight: 243 lb 1.6 oz Body Mass Index (BMI) 32.1 Intake and Output for Last 24 Hours 12/02/18 12/03/18 12/04/18 23:59 23:59 23:59 Intake Total 440 / 440 Balance 440 / 440 General: Alert, Oriented x3, Cooperative, No apparent distress HEENT: Atraumatic, PERRLA, EOMI, Normocephalic Oral: Moist Mucosa Neck: Supple, No JVD, Negative Carotid Bruits Lungs: Clear to auscultation, Normal air movement, No rhonchi, No wheeze, No rales Cardiovascular: Regular rate, Regular Rhythm, Normal S1, Normal S2, No murmurs Abdomen: Bowel Sounds Present, Soft, Non Tender, Non-Distended, No Hepato- splenomegaly Extremities: No clubbing, No cyanosis, No edema, Capillary Refill Less than 3 Seconds Skin: No rashes, No breakdown Musculoskeletal: No Tenderness to Palpation of Joints or Extremities Lymphatic: No Cervical, Supraclavicular, or Inguinal Adenopathy Neurological: Cranial nerves II-XII grossly intact, Neuro grossly intact, Motor Exam 5/5 strength throughout Psych/Mental Status: Flat Affect, Alert and oriented to time, place, person, mood and affect Laboratory Results 12/03/18 18:15: Urine Opiates Screen NEGATIVE, Urine Methadone Screen NEGATIVE, Ur Barbiturates Screen NEGATIVE, Ur Phencyclidine Scrn NEGATIVE, Ur Amphetamines Screen NEGATIVE, U Methamphetamin-MDMA NEGATIVE, U Benzodiazepines Scrn NEGATIVE, Urine Cocaine Screen NEGATIVE, U Cannabinoids Screen POSITIVE H, Ur Drug Screen Comment 12/03/18 18:17: WBC 6.1, RBC 4.98, Hgb 15.4, Hct 45.2, MCV 90.8, MCH 30.9, MCHC 34.1, RDW 13.6, RDW Differential 43.9, Plt Count 206, MPV 9.4, Immature Gran % (Auto) 0.300, Neut % (Auto) 67.8, Lymph % (Auto) 20.5, [place] % (Auto) 10.7 H, Eos % (Auto) 0.5, Baso % (Auto) 0.2, Absolute Neuts (auto) 4.2, Absolute Lymphs (auto) 1.26, Total Counted Not Reportable 12/03/18 18:17: Sodium 137, Potassium 3.3 L, Chloride 98, Carbon Dioxide 32.0, Anion Gap 7, BUN 11, Creatinine 1.08, Estim Creat Clear Calc 108.92, Est GFR (MDRD) Af Amer 101, Est GFR (MDRD) Non-Af 83, BUN/Creatinine Ratio 10.2, Glucose 101, Calcium 8.9, Total Bilirubin 1.80 H, AST 99 H, ALT 135 H, Alkaline Phos phatase 125 H, Total Protein 8.3 H, Albumin 4.4, Globulin 3.9, Albumin/Globulin Ratio 1.1 12/03/18 18:17: Ethyl Alcohol 10.0 Current Medications Bisacodyl (Dulcolax) 5 mg PO DAILY PRN PRN PRN Reason: Constipation Bupropion HCl (Wellbutrin Xl) 150 mg PO DAILY [facility] Chlordiazepoxide (Librium) 50 mg PO Q6H [facility]; Taper Stop: 12/07/18 01:29 Last Admin: 12/04/18 05:54 Dose: 50 mg Escitalopram Oxalate (Lexapro) 10 mg PO DAILY [facility] Famotidine (Pepcid) 40 mg PO BID [facility] Guaifenesin (Mucinex) 600 mg PO Q12H PRN PRN PRN Reason: CHEST CONGESTION/SECRETIONS Hydroxyzine Pamoate (Vistaril Pamoate Capsule) 25 mg PO 4X/DAY PRN PRN PRN Reason: ANXIETY Last Admin: 12/03/18 23:49 Dose: 25 mg Loratadine (Claritin) 10 mg PO DAILY [facility] Magnesium Hydroxide (Milk Of Magnesia) 30 ml PO DAILY PRN PRN PRN Reason: Constipation Multivitamins (Multivitamin) 1 tablet PO DAILYCM [facility] Ondansetron HCl (Zofran Odt) 4 mg PO Q6H PRN PRN PRN Reason: NAUSEA Pantoprazole Sodium (Protonix) 40 mg PO DAILY [facility] Sodium Chloride () 5 - 15 ml IV UD PRN PRN Reason: SALINE FLUSH Thiamine HCl (Vitamin B1) 100 mg PO DAILYCM [facility] Trazodone HCl (Desyrel) 50 mg PO QHS PRN PRN Reason: SLEEP Medical Necessity - Tobacco Use Smoking Status: Current some day smoker Tobacco Use: Chew Assessment/Plan All Active Problems Acute alcohol withdrawal (Acute) 1. Acute alcohol withdrawal * on alcohol withdrawal protocol with ativan * on folic acid, multivites and thiamine * CIWA score was 14 today * will monitor CIWA score * 2. HYpokalemia: K was 3.3. Will replace and monitor 3. Anxiety and depression: on wellbutrin and lexapro 4. Insomnia: on trazodone prn 5. GERD: PPI 6. Nicotine dependence: Counseled to quit. Refused nicotine patch on admission . . Elevated liver enzymes: * Total bilirubin was 1.8 on admission with AST of 99, ALT of 135 and ALP of 125. * Likely due to alcohol intake. These are around his baseline Will monitor. * DVT prophylaxis: encourage ambulation Code Visit Inpatient E&M: 53796 Subs Hosp L2
[2018-12-04] MEDS: Ondansetron ODT 4 MG Tablet PO ×2 (10:37→16:56)
[2018-12-04] MEDS: Loratadine 10 MG Tablet PO (10:38)
[2018-12-04] MEDS: Folic Acid 1 MG Tablet PO (10:38)
[2018-12-04] MEDS: Famotidine 20 MG Tablet 40 MG PO ×2 (10:38→21:29)
[2018-12-04] MEDS: Pantoprazole Sodium 40 MG Tablet PO (10:38)
[2018-12-04] MEDS: Escitalopram Oxalate 10 MG Tablet PO (10:38)
[2018-12-04] MEDS: Multivitamins,Therapeutic Tablet 1 TABLET PO (10:38)
[2018-12-04] MEDS: Thiamine Hydrochloride 100 MG Tablet PO (10:38)
[2018-12-04] MEDS: buPROPion (XL) 150 MG TABLET.XL PO (10:38)
--- NOTE | 2018-12-04 13:08 | NEWVISION ---
I met with patient to discuss what he would like to do post discharge. Patient explained that he messed up after he last left and started drinking. Patient did attend outpatient counseling. Patient is now open to inpatient options. I will provide inpatient options to patient and facilitate admission.
[2018-12-04] MEDS: hydrOXYzine PAM 25 MG Capsule PO (16:12)
[2018-12-04] MEDS: Ibuprofen 600 MG Tablet PO (16:55)
[2018-12-04] MEDS: Calcium Carbonate 500 MG Tablet 1000 MG PO (16:56)
[2018-12-04] MEDS: LORazepam 1 MG Tablet PO ×2 (19:01→22:17)
[2018-12-05] VITALS (7 sets, daily range): BP systolic 113–129; BP diastolic 74–88; PULSE 56–82; RESP 16–18; TEMP 36.3–37.1; O2SAT 97–98
[2018-12-05] MEDS: hydrOXYzine PAM 25 MG Capsule PO ×2 (00:25→23:03)
[2018-12-05] MEDS: chlordiazePOXIDE 25 MG Capsule PO ×3 (01:57→17:45)
[2018-12-05] MEDS: Escitalopram Oxalate 10 MG Tablet PO (08:32)
[2018-12-05] MEDS: Multivitamins,Therapeutic Tablet 1 TABLET PO (08:32)
[2018-12-05] MEDS: Pantoprazole Sodium 40 MG Tablet PO (08:32)
[2018-12-05] MEDS: Thiamine Hydrochloride 100 MG Tablet PO (08:32)
[2018-12-05] MEDS: Loratadine 10 MG Tablet PO (08:32)
[2018-12-05] MEDS: Folic Acid 1 MG Tablet PO (08:32)
[2018-12-05] MEDS: buPROPion (XL) 150 MG TABLET.XL PO (08:33)
[2018-12-05] MEDS: Famotidine 20 MG Tablet 40 MG PO ×2 (08:33→22:55)
[2018-12-05] MEDS: Ondansetron ODT 4 MG Tablet PO (08:41)
[2018-12-05] MEDS: LORazepam 1 MG Tablet PO ×4 (08:41→23:03)
--- NOTE | 2018-12-05 09:28 | NEWVISION ---
I met with patient and discussed the need for inpatient treatment. Patient agreed. I will work on inpatient options and present to patient.
--- NOTE | 2018-12-05 10:05 | PCM.PN.HOSP ---
Subjective: Patient seen and examined. He has no complaints and feels well. REview of systems otherwise negative. Vitals/I&O's: Vital Signs Temp Pulse Resp BP Pulse Ox 97.4 F L 74 18 121/85 H 98 12/05/18 08:29 12/05/18 08:29 12/05/18 08:29 12/05/18 08:29 12/05/18 08:29 Oxygen Delivery Method Room Air Weight: 243 lb 1.6 oz Body Mass Index (BMI) 32.1 Intake and Output for Last 24 Hours 12/03/18 12/04/18 12/05/18 23:59 23:59 23:59 Intake Total 1840 / 1840 200 / 200 Balance 1840 / 1840 200 / 200 General: Alert, Oriented x3, Cooperative, No apparent distress HEENT: Atraumatic, PERRLA, EOMI, Normocephalic Oral: Moist Mucosa Neck: Supple, No JVD, Negative Carotid Bruits Lungs: Clear to auscultation, Normal air movement, No rhonchi, No wheeze, No rales Cardiovascular: Regular rate, Regular Rhythm, Normal S1, Normal S2, No murmurs Abdomen: Bowel Sounds Present, Soft, Non Tender, Non-Distended, No Hepato-splenomegaly Extremities: No clubbing, No cyanosis, No edema, Capillary Refill Less than 3 Seconds Skin: No rashes, No breakdown Musculoskeletal: No Tenderness to Palpation of Joints or Extremities Lymphatic: No Cervical, Supraclavicular, or Inguinal Adenopathy Neurological: Cranial nerves II-XII grossly intact, Neuro grossly intact, Motor Exam 5/5 strength throughout Psych/Mental Status: Flat Affect, Alert and oriented to time, place, person, mood and affect Current Medications Bisacodyl (Dulcolax) 5 mg PO DAILY PRN PRN PRN Reason: Constipation Bupropion HCl (Wellbutrin Xl) 150 mg PO DAILY [facility] Last Admin: 12/05/18 08:33 Dose: 150 mg Calcium Carbonate (Tums) 1,000 mg PO Q4H PRN PRN PRN Reason: HEARTBURN Last Admin: 12/04/18 16:56 Dose: 1,000 mg Chlordiazepoxide (Librium) 50 mg PO Q8H [facility]; Taper Stop: 12/07/18 01:29 Last Admin: 12/05/18 08:42 Dose: 50 mg Escitalopram Oxalate (Lexapro) 10 mg PO DAILY [facility] Last Admin: 12/05/18 08:32 Dose: 10 mg Famotidine (Pepcid) 40 mg PO BID [facility] Last Admin: 12/05/18 08:33 Dose: 40 mg [facility] Last Admin: 12/05/18 08:32 Dose: 1 mg Guaifenesin (Mucinex) 600 mg PO Q12H PRN PRN PRN Reason: CHEST CONGESTION/SECRETIONS Hydroxyzine Pamoate (Vistaril Pamoate Capsule) 25 mg PO 4X/DAY PRN PRN PRN Reason: ANXIETY Last Admin: 12/05/18 00:25 Dose: 25 mg Ibuprofen (Motrin) 600 mg PO Q6H PRN PRN PRN Reason: MILD PAIN (1-310) Last Admin: 12/04/18 16:55 Dose: 600 mg Loperamide HCl (Imodium) 2 mg PO Q4H PRN PRN PRN Reason: Diarrhea Loratadine (Claritin) 10 mg PO DAILY [facility] Last Admin: 12/05/18 08:32 Dose: 10 mg Lorazepam (Ativan) 1 mg PO Q3H PRN PRN PRN Reason: Alcohol Withdrawal Last Admin: 12/05/18 08:41 Dose: 1 mg Magnesium Hydroxide (Milk Of Magnesia) 30 ml PO DAILY PRN PRN PRN Reason: Constipation [facility] ([facility]amin) [facility] Last Admin: 12/05/18 08:32 Dose: 1 tablet Nicotine (Nicoderm Cq (Pbkc)) 21 mg TRANSDERM. DAILY [facility] Last Admin: 12/05/18 08:34 Dose: Not Given Ondansetron HCl (Zofran Odt) 4 mg PO Q6H PRN PRN PRN Reason: NAUSEA Last Admin: 12/05/18 08:41 Dose: 4 mg Pantoprazole Sodium (Protonix) 40 mg PO DAILY [facility] Last Admin: 12/05/18 08:32 Dose: 40 mg Sodium Chloride () 5 - 15 ml IV UD PRN PRN Reason: SALINE FLUSH Thiamine HCl ([facility]itamin B1) [facility] Last Admin: 12/05/18 08:32 Dose: 100 mg Trazodone HCl (Desyrel) 50 mg PO QHS PRN PRN Reason: SLEEP Medical Necessity - Tobacco Use Smoking Status: Current some day smoker Tobacco Use: Chew Assessment/Plan All Active Problems Acute alcohol withdrawal (Acute) 1. Acute alcohol withdrawal on alcohol withdrawal protocol with ativan on folic acid, multivites and thiamine CIWA score was 8 today will monitor CIWA score 2. HYpokalemia: potassium was replaced. WIll monitor 3. Anxiety and depression: on wellbutrin and lexapro 4. Insomnia: on trazodone prn 5. GERD: PPI 6. Nicotine dependence: Counseled to quit. Refused nicotine patch on admission. . Elevated liver enzymes: Total bilirubin was 1.8 on admission with AST of 99, ALT of 135 and ALP of 125. Likely due to alcohol intake. These are around his baseline Will monitor. DVT prophylaxis: encourage ambulation Code Visit Inpatient E&M: 25154 Subs Hosp L2
--- NOTE | 2018-12-05 10:09 | PN_ITS ---
Subjective: Patient seen and examined. He has no complaints and feels well. REview of systems otherwise negative. Vitals/I&O's: Vital Signs Temp Pulse Resp BP Pulse Ox 97.4 F L 74 18 121/85 H 98 12/05/18 08:29 12/05/18 08:29 12/05/18 08:29 12/05/18 08:29 12/05/18 08:29 Oxygen Delivery Method Room Air Weight: 243 lb 1.6 oz Body Mass Index (BMI) 32.1 Intake and Output for Last 24 Hours 12/03/18 12/04/18 12/05/18 23:59 23:59 23:59 Intake Total 1840 / 1840 200 / 200 Balance 1840 / 1840 200 / 200 General: Alert, Oriented x3, Cooperative, No apparent distress HEENT: Atraumatic, PERRLA, EOMI, Normocephalic Oral: Moist Mucosa Neck: Supple, No JVD, Negative Carotid Bruits Lungs: Clear to auscultation, Normal air movement, No rhonchi, No wheeze, No rales Cardiovascular: Regular rate, Regular Rhythm, Normal S1, Normal S2, No murmurs Abdomen: Bowel Sounds Present, Soft, Non Tender, Non-Distended, No Hepato- splenomegaly Extremities: No clubbing, No cyanosis, No edema, Capillary Refill Less than 3 Seconds Skin: No rashes, No breakdown Musculoskeletal: No Tenderness to Palpation of Joints or Extremities Lymphatic: No Cervical, Supraclavicular, or Inguinal Adenopathy Neurological: Cranial nerves II-XII grossly intact, Neuro grossly intact, Motor Exam 5/5 strength throughout Psych/Mental Status: Flat Affect, Alert and oriented to time, place, person, mood and affect Current Medications Bisacodyl (Dulcolax) 5 mg PO DAILY PRN PRN PRN Reason: Constipation Bupropion HCl (Wellbutrin Xl) 150 mg PO DAILY [facility] Last Admin: 12/05/18 08:33 Dose: 150 mg Calcium Carbonate (Tums) 1,000 mg PO Q4H PRN PRN PRN Reason: HEARTBURN Last Admin: 12/04/18 16:56 Dose: 1,000 mg Chlordiazepoxide (Librium) 50 mg PO Q8H [facility]; Taper Stop: 12/07/18 01:29 Last Admin: 12/05/18 08:42 Dose: 50 mg Escitalopram Oxalate (Lexapro) 10 mg PO DAILY [facility] Last Admin: 12/05/18 08:32 Dose: 10 mg Famotidine (Pepcid) 40 mg PO BID [facility] Last Admin: 12/05/18 08:33 Dose: 40 mg [facility]olic [facility] ([facility] Acid) [facility] Last Admin: 12/05/18 08:32 Dose: 1 mg Guaifenesin (Mucinex) 600 mg PO Q12H PRN PRN PRN Reason: CHEST CONGESTION/SECRETIONS Hydroxyzine Pamoate (Vistaril Pamoate Capsule) 25 mg PO 4X/DAY PRN PRN PRN Reason: ANXIETY Last Admin: 12/05/18 00:25 Dose: 25 mg Ibuprofen (Motrin) 600 mg PO Q6H PRN PRN PRN Reason: MILD PAIN (1-310) Last Admin: 12/04/18 16:55 Dose: 600 mg Loperamide HCl (Imodium) 2 mg PO Q4H PRN PRN PRN Reason: Diarrhea Loratadine (Claritin) 10 mg PO DAILY [facility] Last Admin: 12/05/18 08:32 Dose: 10 mg Lorazepam (Ativan) 1 mg PO Q3H PRN PRN PRN Reason: Alcohol Withdrawal Last Admin: 12/05/18 08:41 Dose: 1 mg Magnesium Hydroxide (Milk Of Magnesia) 30 ml PO DAILY PRN PRN PRN Reason: Constipation Multivitamins (Multivitamin) [facility] Last Admin: 12/05/18 08:32 Dose: 1 tablet Nicotine (Nicoderm Cq (Pbkc)) 21 mg TRANSDERM. DAILY [facility] Last Admin: 12/05/18 08:34 Dose: Not Given Ondansetron HCl (Zofran Odt) 4 mg PO Q6H PRN PRN PRN Reason: NAUSEA Last Admin: 12/05/18 08:41 Dose: 4 mg Pantoprazole Sodium (Protonix) 40 mg PO DAILY [facility] Last Admin: 12/05/18 08:32 Dose: 40 mg Sodium Chloride () 5 - 15 ml IV UD PRN PRN Reason: SALINE FLUSH Thiamine HCl (Vitamin B1) [facility] Last Admin: 12/05/18 08:32 Dose: 100 mg Trazodone HCl (Desyrel) 50 mg PO QHS PRN PRN Reason: SLEEP Medical Necessity - Tobacco Use Smoking Status: Current some day smoker Tobacco Use: Chew Assessment/Plan All Active Problems Acute alcohol withdrawal (Acute) 1. Acute alcohol withdrawal * on alcohol withdrawal protocol with ativan * on folic acid, multivites and thiamine * CIWA score was 8 today * will monitor CIWA score * 2. HYpokalemia: potassium was replaced. WIll monitor 3. Anxiety and depression: on wellbutrin and lexapro 4. Insomnia: on trazodone prn 5. GERD: PPI 6. Nicotine dependence: Counseled to quit. Refused nicotine patch on admission. . Elevated liver enzymes: * Total bilirubin was 1.8 on admission with AST of 99, ALT of 135 and ALP of 125. * Likely due to alcohol intake. These are around his baseline * Will monitor. * DVT prophylaxis: encourage ambulation Code Visit Inpatient E&M: 42951 Subs Hosp L2
[2018-12-05] MEDS: Ibuprofen 600 MG Tablet PO ×2 (12:33→23:03)
[2018-12-06] MEDS: chlordiazePOXIDE 25 MG Capsule PO ×2 (00:37→13:10)
[2018-12-06 02:29] VITALS: BP 127/97; PULSE 79; RESP 18; TEMP 36.4; O2SAT 100
[2018-12-06] MEDS: LORazepam 1 MG Tablet PO ×2 (02:34→10:37)
[2018-12-06] MEDS: Thiamine Hydrochloride 100 MG Tablet PO (08:08)
[2018-12-06] MEDS: Multivitamins,Therapeutic Tablet 1 TABLET PO (08:09)
[2018-12-06] MEDS: Folic Acid 1 MG Tablet PO (08:09)
--- NOTE | 2018-12-06 08:59 | NEWVISION ---
Patient was accepted to inpatient program. patient declined to go due to upcoming DUI court date, work, and no one to watch over his home. Patient stated he would like to continue with outpatient at [facility] in [place]. Patient to attend next counseling appointment on Monday12.11.18. Patient states he can obtain antabuse through counseling center to continue with.
[2018-12-06 10:00] VITALS: BP 120/69; PULSE 60; RESP 16; TEMP 36.6; O2SAT 97
[2018-12-06] MEDS: Loratadine 10 MG Tablet PO (10:34)
[2018-12-06] MEDS: Escitalopram Oxalate 10 MG Tablet PO (10:34)
[2018-12-06] MEDS: Famotidine 20 MG Tablet 40 MG PO (10:34)
[2018-12-06] MEDS: Pantoprazole Sodium 40 MG Tablet PO (10:34)
[2018-12-06] MEDS: buPROPion (XL) 150 MG TABLET.XL PO (10:35)
--- NOTE | 2018-12-06 11:05 | DCINST_ITS ---
You will use the following diet at home:: No restrictions Your food should be the consistency of: Regular Your liquids should be the consistency of: Regular/Thin Discharge Activity: Return to Normal Activity Weight Bearing Status: Weight bearing as tolerated Call your doctor if you observe: Fever of 101 or Higher Instructions: The Impact of Alcoholism, Alcohol Addiction Additional Instructions: follow up with [facility] for outpatient rehab and to be set up for inpatient rehab as appropriate Allergies/Adverse Reactions: Allergies No Known Allergies Allergy (Verified 12/03/18 18:04) Medications to take at Discharge Escitalopram Oxalate [Lexapro] 10 mg PO DAILY 11/12/18 Levocetirizine Dihydrochloride [Xyzal] 5 mg PO DINNER 11/12/18 Loratadine [Claritin] 10 mg PO DAILY 11/12/18 Pantoprazole Sodium [Protonix] 40 mg PO DAILY 11/12/18 Ranitidine [Zantac] 300 mg PO BID 11/12/18 traZODone [Desyrel] 50 mg PO QHS PRN 11/12/18 Bupropion HCl [Bupropion Xl] 150 mg PO DAILY 12/03/18 hydrOXYzine pamoate capsule [Vistaril pamoate capsule] 25 mg PO 4X/DAY PRN PRN 12/03/18 Disulfiram [Antabuse] 500 mg PO DAILY #14 tab 12/06/18 The following prescriptions were given: Disulfiram [Antabuse] 500 mg PO DAILY #14 tab Primary Care Physician: [facility],Out of [Primary Care Provider] - Please follow up with your Primary Care Physician in: one week Test Results: Test results from this visit will be discussed in further detail at your follow- up appointment, if applicable. Proposed Discharge Date: 12/06/18
--- NOTE | 2018-12-06 11:05 | PCM.DC.SUM ---
Discharge Date and Diagnosis Date of Admission: 12/03/18 Date of Discharge: 12/06/18 - Primary Discharge Diagnosis acute alcohol withdrawal - Secondary Discharge Diagnosis Chronic Problems Alcohol abuse (Chronic) GERD (gastroesophageal reflux disease) (Chronic) Depression (Chronic) Hospital Course and Treatment Consultations 12/03/18 22:51 Consult: [facility] Routine Consulting Provider: Consulted Physician Type:: Other * Specify below * Reason for consult:: ETOH Dependence with withdrawal Operations: None Procedures: None Summary of Care Provided: The patient is a 33 year old M with past medical history of GERD, depression and anxiety disorder as well as alcohol dependence. He was admitted with a complaint of acute alcohol withdrawal symptoms which started about a day before admission. His last drink was 2 days prior to admission. He had chills, tremors, numbness and tingling of his extremities, joint somnolence, restless legs and fatigue. Of note, patient had been admitted on 11/12/2018 and discharged on 11/15/2018 and managed for acute alcohol withdrawal. He followed up with outpatient alcohol rehab but relapsed. He was admitted and managed for acute alcohol withdrawal per [facility] protocol on ativan. His symptoms resolved and he remained stable. He was discharged home on 12/06/2018 with a prescription for Antabuse for 2 weeks. He is to follow-up with his primary care doctor and follow-up with [facility] on outpatient basis. Seen and examined prior to discharge. He had no complaints and felt well. Tremors have resolved. He denied any fever palpitations or dizziness, cough, abdominal pain, diarrhea or vomiting. Review of systems otherwise negative. Labs and vitals reviewed. Medications reviewed and reconciled. o/e: Vital Signs Height 6 ft 1 in Weight: 243 lb 1.6 oz Weight in Pounds 243.1 lbs Pulse Ox 97 Temperature 97.9 F Pulse Rate 60 Respiratory Rate 16 Blood Pressure 120/69 Blood Pressure Position Semi-Fowlers General: Alert, Oriented x3, Cooperative, No apparent distress HEENT: Atraumatic, PERRLA, EOMI, Normocephalic Oral: Moist Mucosa Neck: Supple, No JVD, Negative Carotid Bruits Lungs: Clear to auscultation, Normal air movement, No rhonchi, No wheeze, No rales Cardiovascular: Regular rate, Regular Rhythm, Normal S1, Normal S2, No murmurs Abdomen: Bowel Sounds Present, Soft, Non Tender, Non-Distended, No Hepato-splenomegaly Extremities: No clubbing, No cyanosis, No edema, Capillary Refill Less than 3 Seconds Skin: No rashes, No breakdown Musculoskeletal: No Tenderness to Palpation of Joints or Extremities Lymphatic: No Cervical, Supraclavicular, or Inguinal Adenopathy Neurological: Cranial nerves II-XII grossly intact, Neuro grossly intact, Motor Exam 5/5 strength throughout Psych/Mental Status: Flat Affect, Alert and oriented to time, place, person, mood and affect Plan as discussed. - Physical Exam Vital Signs Temp Pulse Resp BP Pulse Ox 97.5 F L 79 18 127/97 H 100 12/06/18 02:29 12/06/18 02:29 12/06/18 02:29 12/06/18 02:29 12/06/18 02:29 Oxygen Delivery Method Room Air Weight: 243 lb 1.6 oz Body Mass Index (BMI) 32.1 Intake and Output for Last 24 Hours 12/04/18 12/05/18 12/06/18 23:59 23:59 23:59 Intake Total 1840 / 1840 200 / 200 900 / 900 Balance 1840 / 1840 200 / 200 900 / 900 Discharge Diet: Low fat/ Low Cholesterol Discharge Activity: Return to Normal Activity Weight Bearing Status: Weight bearing as tolerated Call your doctor if you observe: Fever of 101 or Higher Home Medications: Medications to take at Discharge Escitalopram Oxalate [Lexapro] 10 mg PO DAILY 11/12/18 Levocetirizine Dihydrochloride [Xyzal] 5 mg PO DINNER 11/12/18 Loratadine [Claritin] 10 mg PO DAILY 11/12/18 Pantoprazole Sodium [Protonix] 40 mg PO DAILY 11/12/18 Ranitidine [Zantac] 300 mg PO BID 11/12/18 traZODone [Desyrel] 50 mg PO QHS PRN 11/12/18 Bupropion HCl [Bupropion Xl] 150 mg PO DAILY 12/03/18 hydrOXYzine pamoate capsule [Vistaril pamoate capsule] 25 mg PO 4X/DAY PRN PRN 12/03/18 Disulfiram [Antabuse] 500 mg PO DAILY #14 tab 12/06/18 Following Prescrptions Were Given to Patient: Disulfiram [Antabuse] 500 mg PO DAILY #14 tab Primary Care Physician: [facility] Doctor,Out of [Primary Care Provider] - Please follow up with your Primary Care Physician in: one week Patient Instructions: The Impact of Alcoholism, Alcohol Addiction Disposition: Home Minutes spent on discharge:: 35 Patient Condition:: Stable Medical Necessity - Tobacco Use Smoking Status: Current some day smoker Tobacco Use: Chew Meaningful Use Info Meaningful Use Diagnoses (Choose all that apply): None applicable Code Visit Inpatient E&M: 45049 Disch Hosp
[2018-12-06 12:00] VITALS: BP 120/69; PULSE 60; RESP 16; TEMP 36.6; O2SAT 97
== END 2018-12-06 15:45 | disposition home or self-care (01) | DRG 775 ==
LOC: ED 18:30 → MS3 22:15
PROVIDERS: Admitting Provider Hospitalist; Emergency Provider Emergency Medicine; Referring Provider Hospitalist; Visit Provider Student in an Organized Health Care Education/Training Program
DX: F10.239 Alcohol dependence with withdrawal, unspecified (principal); K21.9 Gastro-esophageal reflux disease without esophagitis; F41.9 Anxiety disorder, unspecified; F32.9 Major depressive disorder, single episode, unspecified; E87.6 Hypokalemia; R74.8 Abnormal levels of other serum enzymes; F17.200 Nicotine dependence, unspecified, uncomplicated; G47.00 Insomnia, unspecified
CPT/HCPCS: 80053; 80307; 80320; 85025; 93005; 99283; J7030; A4216; G0480

== ENCOUNTER 2019-03-29 15:48 | Inpatient (IN) | payer MEDICAID, SELFPAY ==
[2019-03-29 15:49] VITALS: BP 146/94; PULSE 117; PULSE 120; RESP 18; TEMP 37.2; O2SAT 98; BMI 30.4
--- NOTE | 2019-03-29 16:41 | ED.DCSUM_ITS ---
History of Present Illness Chief Complaint: Substance Abuse Detail of Chief Complaint: wants EtOH detox Informant: Patient Onset: Yesterday Context: Gradual Onset Timing: Continuous Quality: shaky, anxious Location: all over Current Severity: Moderate Maximum Severity: Severe Worsened by: nothing Relieved by: EtOH Associated Symptoms: nausea Narrative: Patient wanting detox from alcohol. He usually drinks about 1/2 gallon of 80 proof or more vodka per day, he drank less today after possibly having an alcohol withdrawal seizure last night, he states he woke up on the floor next to his bed around 5 AM, feeling like he might of had a seizure since he has had those in the past with alcohol withdrawal, he urinated himself but did not bite his tongue. Denies headache or any injury. He had some alcohol after that but only a couple shots worth of low-proof vodka, and has been feeling like he is in withdrawal all day, tremulous, shaky, anxious. No abdominal pain/cramping or diarrhea. No recent injuries or illnesses. Has been compliant with his other medications for depression/anxiety. Denies any other drug use. - Past Medical History (1) Alcoholism Status: Chronic (2) Depression Status: Chronic (3) GERD (gastroesophageal reflux disease) Status: Chronic Past Medical History - Allergies and Home Meds Allergies/Adverse Reactions: Allergies No Known Allergies Allergy (Verified 03/29/19 15:51) Surgical History: no surgical history Smoking Status: Never smoker Alcohol: Heavy Drugs: None - Family History Maternal Family History: Reports: - - No family history of hypertension, diabetes, CAD or alcohol. Paternal Family History: Reports: - - Reports alcoholism Review of Systems General: Reports: Malaise. Denies: Chills, Fever, Sweats Eyes: Denies: Visual changes - bilaterally, Diplopia ENT: Denies: Rhinorrhea, Sore throat Cardiovascular: Denies: Chest pain, Palpitations Respiratory: Denies: Dyspnea, Cough, Dyspnea on exertion Gastrointestinal: Reports: Nausea. Denies: Abdominal pain, Vomiting, Diarrhea, Melena, Hematochezia Genitourinary: Denies: Dysuria, Hematuria, Frequency Musculoskeletal: Denies: Back pain, Extremity Pain Skin: Denies: Rash, Wounds Neurological: Reports: - - Tremulousness, nonfocal. Denies: Headache, Weakness, Numbness Psych: Reports: Anxiety. Denies: Suicidal thoughts, Suicidal ideations Physical Exam Vital Signs/Narrative: Vital Signs Temp Pulse Resp BP Pulse Ox 03/29/19 15:49 98.9 F 120 H 18 146/94 H 98 Inital Vital Signs reviewed: Yes General: Well nourished, Well developed, No Acute Distress Head: Normocephalic, Atraumatic Eyes: Perrl, EOMI. Negative for: Scleral icterus ENT: Moist mucous membranes, No rhinorrhea Neck: Supple, Nontender Cardiovascular: Regular rate, Regular rhythm, No murmurs, Tachycardia Respiratory: No distress, CTA bilaterally, Chest nontender Abdomen: Soft, Nontender, Nondistended, Normal bowel sounds Back: Nontender, Normal Inspection Extremities: Nontender, No edema Skin: Normal color, No rash, No Trauma Neurological: Alert, Oriented x3, Cranial nerves II-XII grossly intact, Normal Strength, Normal Sensation, - - Fine tremor bilateral upper extremities Psychological: Normal Mood, - - Anxious Diagnostic/Tx/Re-eval Laboratory Tests 03/29/19 03/29/19 03/29/19 Range/Units 16:50 16:50 16:50 WBC (4.4-11.0) K/mm3 RBC (4.6-6.2) M/mm3 Hgb (13.0-16.5) g/dl Hct (40-54) % MCV (80-94) fL MCH (27.0-32.0) pg MCHC (32-36) g/gl RDW (11.6-14.6) % RDW Differential (35.1-43.9) fl Plt Count (150-450) K/mm3 MPV (6.2-12.0) fl Immature Gran % (Auto) (0.0-0.9) % Neut % (Auto) (47-70) % Lymph % (Auto) (19-41) % Forsyth % (Auto) (0-10) % Eos % (Auto) (0-5) % Baso % (Auto) (0-1) % Absolute Neuts (auto) (2.0-7.7) X10^3/uL Absolute Lymphs (auto) (0.83-4.51) X10^3/ul Total Counted PT 13.7 (11.7-14.9) SECONDS INR 1.1 Sodium 144 (136-145) mmol/L Potassium 3.6 (3.5-5.1) mmol/L Chloride 108 H (98-107) mmol/L Carbon Dioxide 27.0 (21.0-32.0) mmol/L Anion Gap 9 (5-15) BUN 5 L (7-18) mg/dL Creatinine 0.93 (0.70-1.30) mg/dL Estim Creat Clear Calc 126.48 ml/min Est GFR (MDRD) Af Amer 120 (>60) mL/min Est GFR (MDRD) Non-Af 99 (>60) mL/min BUN/Creatinine Ratio 5.4 L (10-20) RATIO Glucose 112 H (74-106) mg/dL Calcium 8.5 (8.5-10.1) mg/dL Total Bilirubin 0.40 (0.20-1.00) mg/dL AST 61 H (15-37) U/L ALT 99 H (16-61) U/L Alkaline Phosphatase 112 (45-117) U/L Total Protein 7.8 (6.4-8.2) g/dL Albumin 4.0 (3.2-5.0) g/dL Globulin 3.8 (2.2-4.2) g/dL Albumin/Globulin Ratio 1.1 (0.9-2.4) RATIO Ethyl Alcohol 135.0 mg/dL /05/10 Range/Units 16:50 WBC 3.8 L (4.4-11.0) K/mm3 RBC 5.00 (4.6-6.2) M/mm3 Hgb 14.8 (13.0-16.5) g/dl Hct 41.6 (40-54) % MCV 83.2 (80-94) fL MCH 29.6 (27.0-32.0) pg MCHC 35.6 (32-36) g/gl RDW 12.3 (11.6-14.6) % RDW Differential 37.0 (35.1-43.9) fl Plt Count 206 (150-450) K/mm3 MPV 9.1 (6.2-12.0) fl Immature Gran % (Auto) 0.500 (0.0-0.9) % Neut % (Auto) 58.3 (47-70) % Lymph % (Auto) 31.4 (19-41) % [place] % (Auto) 9.0 (0-10) % Eos % (Auto) 0.5 (0-5) % Baso % (Auto) 0.3 (0-1) % Absolute Neuts (auto) 2.2 (2.0-7.7) X10^3/uL Absolute Lymphs (auto) 1.19 (0.83-4.51) X10^3/ul Total Counted Not Reportable PT (11.7-14.9) SECONDS INR Sodium (136-145) mmol/L Potassium (3.5-5.1) mmol/L Chloride (98-107) mmol/L Carbon Dioxide (21.0-32.0) mmol/L Anion Gap (5-15) BUN (7-18) mg/dL Creatinine (0.70-1.30) mg/dL Estim Creat Clear Calc ml/min Est GFR (MDRD) Af Amer (>60) mL/min Est GFR (MDRD) Non-Af (>60) mL/min BUN/Creatinine Ratio (10-20) RATIO Glucose (74-106) mg/dL Calcium (8.5-10.1) mg/dL Total Bilirubin (0.20-1.00) mg/dL AST (15-37) U/L ALT (16-61) U/L Alkaline Phosphatase (45-117) U/L Total Protein (6.4-8.2) g/dL Albumin (3.2-5.0) g/dL Globulin (2.2-4.2) g/dL Albumin/Globulin Ratio (0.9-2.4) RATIO Ethyl Alcohol mg/dL - Medical Decision Making CIWA score 20 on my calculation. Discussed w/ hospitalist and [facility] personnel. Will admit for further treatment. Ativan 2mg IV given here, along w/ IVF. ED Disposition - Plan for ED Patient: Disposition: Acute Care Hospital [facility] Diagnosis: Alcohol withdrawal, Alcohol dependence
--- NOTE | 2019-03-29 16:50 | NURSING ---
HOSPITALIST FOR DR CHAN
[2019-03-29] MEDS: Ondansetron 4 MG/2 ML Vial IV ×2 (16:56→20:48)
[2019-03-29] MEDS: LORazepam 2 MG/ML Syringe IV (16:56)
[2019-03-29] MEDS: 0.9% Normal Saline 1,000 ML 999 ML IV ×2 (16:56→22:37)
--- NOTE | 2019-03-29 16:57 | NURSING ---
MED SURG ETOH GIGIS
[2019-03-29 17:00] LABS: Absolute Lymphocyte Count 1.19 X10^3/ul (0.83-4.51); Absolute Neutrophil Count 2.2 X10^3/uL (2.0-7.7); Basophil# 0.01 X10^3/uL; Basophil% 0.3 % (0-1); Eosinophil# 0.02 X10^3/uL; Eosinophils% 0.5 % (0-5); Hematocrit 41.6 % (40-54); Hemoglobin 14.8 g/dl (13.0-16.5); Lymphocyte # 1.19 X10^3/ul (4.0); Lymphocyte % 31.4 % (19-41); Mean Corp Hgb Conc 35.6 g/gl (32-36); Mean Corpuscular Hgb 29.6 pg (27.0-32.0); Mean Corpuscular Volume 83.2 fL (80-94); Mean Platelet Vol. 9.1 fl (6.2-12.0); Monocyte# 0.34 X10^3/uL; Neutrophil # 2.21 X10^3/uL (2.7-7.7); Neutrophil % 58.3 % (47-70); Platelet Count 206 K/mm3 (150-450); RBC Distribution Width CV 12.3 % (11.6-14.6); White Blood Count 3.8 K/mm3 (4.4-11.0)
[2019-03-29 17:02] LABS: POSITIVE COUNT NO; POSITIVE DIFFERENTIAL NO; POSITIVE MORPHOLOGY NO
[2019-03-29 17:11] VITALS: BMI 30.5
[2019-03-29 17:16] LABS: ALB/GLOB Ratio 1.1 RATIO (0.9-2.4); AST(SGOT) 61 U/L (15-37); Alanine Aminotransfer ALT/SGPT 99 U/L (16-61); Alkaline Phosphatase 112 U/L (45-117); Anion Gap 9 (5-15); BUN 5 mg/dL (7-18); BUN/Creat Ratio 5.4 RATIO (10-20); Calcium,Total 8.5 mg/dL (8.5-10.1); Chloride 108 mmol/L (98-107); Creatinine, Serum 0.93 mg/dL (0.70-1.30); EST Glomerular Filtration Rate 99 mL/min (>60); Est Glom Filt Rate - Afr Amer 120 mL/min (>60); Estimated Creatinine Clearance 126.48 ml/min; Globulin 3.8 g/dL (2.2-4.2); Glucose 112 mg/dL (74-106); Potassium 3.6 mmol/L (3.5-5.1); Protein, Total 7.8 g/dL (6.4-8.2); Sodium Level 144 mmol/L (136-145)
[2019-03-29 17:25] LABS: International Normalized Ratio 1.1; Prothrombin Time (Protime)PT. 13.7 SECONDS (11.7-14.9)
--- NOTE | 2019-03-29 17:26 | HP.PCM_ITS ---
Problem List (1) Alcohol dependence Status: Acute (2) Alcohol withdrawal Status: Acute (3) Depression Status: Chronic (4) GERD (gastroesophageal reflux disease) Status: Chronic History of Present Illness Date of Admission: 03/29/19 Chief Complaint: All withdrawal The patient is a 33 year old M with a PMH as below who presents with a significant alcohol use history. He drinks about 1/2 gallon of vodka a day and this morning at around 5 AM he woke up next to her bed having urinated all over himself. At the time he thought that he may have had a seizure since he has had seizures in the past with withdrawal. He was so scared that he had a glass of vodka and Sprite at around 6 or 7 this morning. He has not had anything since. He denies any other drug use, and states that this is stemming recently from the fact that he emptied his bank account to buy a house up and [place], he was previously living in [place], to be closer to his dad who was ill and then 2 weeks ago his dad moved closer to [place] to be near medical help. In the ER his AST and ALT are little bit high consistent with alcohol induced liver disease, and alcohol level is pending. He feels better after he was given 2 mg dose of Ativan. Past Medical History Past Medical History (Chronic Problems): Chronic Problems Alcoholism (Chronic) Alcohol abuse (Chronic) GERD (gastroesophageal reflux disease) (Chronic) Depression (Chronic) Allergies No Known Allergies Allergy (Verified 03/29/19 15:51) Home Medications: Ambulatory Orders Medication Instructions Recorded Escitalopram Oxalate [Lexapro] 20 mg PO DAILY 11/12/18 Ranitidine [Zantac] 300 mg PO BID 11/12/18 hydrOXYzine pamoate capsule 25 mg PO 4X/DAY PRN PRN 12/03/18 [Vistaril pamoate capsule] Clonidine HCl 0.1 mg PO TID PRN 03/29/19 Trazodone HCl 150 mg PO QHS PRN 03/29/19 Surgical History: no surgical history Smoking Status: Never smoker Alcohol: Heavy Drugs: None - *Family History Maternal History Items: - - No family history of hypertension, diabetes, CAD or alcohol. Paternal History Items: - - Reports alcoholism Review of Systems Constitutional: Denies: Chills, Fever, Weight Change HEENT: Denies: Head Aches, Sinus Congestion, Sinus Drainage Cardiovascular: Denies: Chest Pain, Palpitations Respiratory: Denies: Cough, Shortness of breath at rest, Sputum production Gastrointestinal: Reports: Nausea. Denies: Abdominal Pain, Vomiting Genitourinary: Denies: Dysuria Musculoskeletal: Denies: Joint Pain, Joint Tenderness Skin: Denies: Rash, Wounds Neurological: Denies: Numbness, Tingling, Focal weakness Psychiatric: Reports: Anxiety. Denies: Depression Hematologic/ Lymphatic: Denies: Easy Bruising, Easy Bleeding VTE Information - Inpt Only VTE Present on Admission: No Patient Problems: Active and Suspected Problems Alcohol withdrawal (Acute) Alcohol dependence (Acute) - Physical Exam General: Alert, Oriented x3, Cooperative, No apparent distress, - - No tremors, slightly diaphoretic HEENT: Atraumatic, PERRLA, EOMI, Normocephalic, - - Poor dentition Oral: Dry Mucosa Neck: Supple, No JVD Lungs: Clear to auscultation, Normal air movement, No rhonchi, No wheeze, No rales Cardiovascular: Regular rate, Regular Rhythm, Normal S1, Normal S2, No murmurs Abdomen: Soft, Non Tender, Non-Distended, No Hepato-splenomegaly Extremities: No edema, Capillary Refill Less than 3 Seconds Skin: No rashes, No breakdown Neurological: Neuro grossly intact, Sensory exam intact to light touch and pain Psych/Mental Status: Anxious, Restless Vital Signs Temp Pulse Resp BP Pulse Ox 98.9 F 120 H 18 146/94 H 98 03/29/19 15:49 03/29/19 15:49 03/29/19 15:49 03/29/19 15:49 03/29/19 15:49 Oxygen Delivery Method Room Air Weight: 231 lb 0.711 oz Body Mass Index (BMI) 30.4 Laboratory Tests Past 24 Hrs 03/29/19 03/29/19 03/29/19 16:50 16:50 16:50 WBC 3.8 L RBC 5.00 Hgb 14.8 Hct 41.6 MCV 83.2 MCH 29.6 MCHC 35.6 RDW 12.3 RDW Differential 37.0 Plt Count 206 MPV 9.1 Immature Gran % (Auto) 0.500 Neut % (Auto) 58.3 Lymph % (Auto) 31.4 Grayson % (Auto) 9.0 Eos % (Auto) 0.5 Baso % (Auto) 0.3 Absolute Neuts (auto) 2.2 Absolute Lymphs (auto) 1.19 Total Counted Not Reportable PT Pending INR Pending Sodium 144 Potassium 3.6 Chloride 108 H Carbon Dioxide 27.0 Anion Gap 9 BUN 5 L Creatinine 0.93 Estim Creat Clear Calc 126.48 Est GFR (MDRD) Af Amer 120 Est GFR (MDRD) Non-Af 99 BUN/Creatinine Ratio 5.4 L Glucose 112 H Calcium 8.5 Total Bilirubin 0.40 AST 61 H ALT 99 H Alkaline Phosphatase 112 Total Protein 7.8 Albumin 4.0 Globulin 3.8 Albumin/Globulin Ratio 1.1 Ethyl Alcohol 03/29/19 16:50 WBC RBC Hgb Hct MCV MCH MCHC RDW RDW Differential Plt Count MPV Immature Gran % (Auto) Neut % (Auto) Lymph % (Auto) Grayson % (Auto) Eos % (Auto) Baso % (Auto) Absolute Neuts (auto) Absolute Lymphs (auto) Total Counted PT INR Sodium Potassium Chloride Carbon Dioxide Anion Gap BUN Creatinine Estim Creat Clear Calc Est GFR (MDRD) Af Amer Est GFR (MDRD) Non-Af BUN/Creatinine Ratio Glucose Calcium Total Bilirubin AST ALT Alkaline Phosphatase Total Protein Albumin Globulin Albumin/Globulin Ratio Ethyl Alcohol Pending Assessment/Plan All Active Problems Alcohol withdrawal (Acute) Alcohol dependence (Acute) Acute alcohol withdrawal (Acute) 1. Acute alcohol withdrawal -We will proceed with [facility] protocol, with Ativan 1 mg every 2 hours as needed -Librium taper -We will proceed with the usual symptomatic treatments 2. GERD -Stable usually he is on ranitidine -We will start with Pepcid 3. Depression/anxiety -He is on hydroxyzine and Lexapro but he has not taken either of those recently -Can restart while he is here once he is stable DVT: Ambulation Code Visit Inpatient E&M: 49176 Init Hosp L2
[2019-03-29 17:39] VITALS: BMI 30.7
[2019-03-29 17:45] VITALS: BP 117/85; PULSE 91; RESP 18; TEMP 37.3; O2SAT 99
[2019-03-29] MEDS: chlordiazePOXIDE 25 MG Capsule PO ×2 (18:17→23:56)
[2019-03-29] MEDS: Thiamine Hydrochloride 100 MG Tablet PO (18:17)
[2019-03-29] MEDS: Folic Acid 1 MG Tablet PO (18:17)
[2019-03-29] MEDS: hydrOXYzine PAM 25 MG Capsule 50 MG PO (18:17)
[2019-03-29] MEDS: Methocarbamol 750 MG Tablet PO (18:18)
[2019-03-29 18:25] LABS: Bedside Glucose 102 mg/dL (70-110)
[2019-03-29 20:34] VITALS: BP 129/81; PULSE 103; RESP 18; TEMP 37.3; O2SAT 99
[2019-03-29 20:37] VITALS: BP 129/81; PULSE 103; RESP 18; TEMP 37.3; O2SAT 99
[2019-03-29] MEDS: Dicyclomine 10 MG Capsule 20 MG PO (20:47)
[2019-03-29] MEDS: LORazepam 2 MG/ML Syringe 1 MG IV (20:48)
[2019-03-29] MEDS: Famotidine 20 MG Tablet PO (20:48)
[2019-03-29 21:02] VITALS: PULSE 103; RESP 18; O2SAT 99
[2019-03-29] MEDS: traZODone 50 MG Tablet PO (22:38)
[2019-03-29] MEDS: Acetaminophen 325 MG Tablet 650 MG PO (22:38)
[2019-03-29 23:53] VITALS: BP 113/90; PULSE 87; RESP 18; TEMP 37.2; O2SAT 95
[2019-03-30] MEDS: Ibuprofen 600 MG Tablet PO ×2 (00:02→19:31)
[2019-03-30] MEDS: QUEtiapine 25 MG Tablet PO ×3 (00:03→17:42)
[2019-03-30] MEDS: Methocarbamol 750 MG Tablet PO ×3 (00:03→13:58)
[2019-03-30] MEDS: hydrOXYzine PAM 25 MG Capsule 50 MG PO ×2 (00:03→13:58)
[2019-03-30 02:32] VITALS: BP 127/85; PULSE 69; RESP 18; TEMP 36.9; O2SAT 100
[2019-03-30 02:33] VITALS: BP 127/85; PULSE 69; RESP 18; TEMP 36.9; O2SAT 100
[2019-03-30] MEDS: LORazepam 2 MG/ML Syringe 1 MG IV ×2 (02:42→20:34)
[2019-03-30] MEDS: Ondansetron ODT 4 MG Tablet PO (02:42)
[2019-03-30] MEDS: 0.9% NaCl Peripheral Flush Adult/Peds IV (02:42)
[2019-03-30 06:02] VITALS: BP 114/68; PULSE 64; RESP 18; TEMP 36.6; O2SAT 100
[2019-03-30] MEDS: chlordiazePOXIDE 25 MG Capsule PO ×3 (06:06→19:31)
[2019-03-30] MEDS: Acetaminophen 325 MG Tablet 650 MG PO (06:10)
[2019-03-30] MEDS: Dicyclomine 10 MG Capsule 20 MG PO (06:10)
--- NOTE | 2019-03-30 07:19 | PCM.PN.HOSP ---
Patient Problems: Active and Suspected Problems Alcohol withdrawal (Acute) Alcohol dependence (Acute) Subjective: Patient is a 33-year-old gentleman with past medical history segment for chronic alcohol dependence admitted with acute alcohol withdrawal Objective: GENERAL: cooperative HEENT: Atraumatic; moist oral mucosa EYES; Anicteric, Normal Conjunctiva NECK; supple, normal thyroid, RESPIRATORY: Diminished to auscultation CARDIOVASCULAR: Regular S1 S2, GI: soft, non-tender, normoactive bowel sounds, : No Renal angle tenderness; EXTREMITIES: No edema, no clubbing, MUSCULOSKELETAL: No Joint Tenderness; NEURO: Awake; no lateralizing signs. SKIN: No Rash PSYCH; flat affect Vitals/I&O's: Vital Signs Temp Pulse Resp BP Pulse Ox 98 F 64 18 114/68 100 03/30/19 06:02 03/30/19 06:02 03/30/19 06:02 03/30/19 06:02 03/30/19 06:02 Oxygen Delivery Method Room Air Weight: 105.778 kg Body Mass Index (BMI) 30.7 Intake and Output for Last 24 Hours 03/28/19 03/29/19 03/30/19 23:59 23:59 23:59 Intake Total 3663 / 3663 Balance 3663 / 3663 Laboratory Results 03/29/19 16:50: WBC 3.8 L, RBC 5.00, Hgb 14.8, Hct 41.6, MCV 83.2, MCH 29.6, MCHC 35.6, RDW 12.3, RDW Differential 37.0, Plt Count 206, MPV 9.1, Immature Gran % (Auto) 0.500, Neut % (Auto) 58.3, Lymph % (Auto) 31.4, Sequoyah % (Auto) 9.0, Eos % (Auto) 0.5, Baso % (Auto) 0.3, Absolute Neuts (auto) 2.2, Absolute Lymphs (auto) 1.19, Total Counted Not Reportable 03/29/19 16:50: PT 13.7, INR 1.1 03/29/19 16:50: Sodium 144, Potassium 3.6, Chloride 108 H, Carbon Dioxide 27.0, Anion Gap 9, BUN 5 L, Creatinine 0.93, Estim Creat Clear Calc 126.48, Est GFR (MDRD) Af Amer 120, Est GFR (MDRD) Non-Af 99, BUN/Creatinine Ratio 5.4 L, Glucose 112 H, Calcium 8.5, Total Bilirubin 0.40, AST 61 H, ALT 99 H, Alkaline Phosphatase 112, Total Protein 7.8, Albumin 4.0, Globulin 3.8, Albumin/Globulin Ratio 1.1 03/29/19 16:50: Ethyl Alcohol 135.0 03/29/19 18:00: POC Glucose 102 Current Medications Acetaminophen (Tylenol) 650 mg PO Q6H PRN PRN PRN Reason: Non-cardiac pain (mod-severe) Last Admin: 03/30/19 06:10 Dose: 650 mg Al Hydroxide/Mg Hydroxide (Mylanta Ii) 30 ml PO Q6H PRN PRN PRN Reason: dyspesia Bisacodyl (Dulcolax) 10 mg RECTAL DAILY PRN PRN Reason: Constipation Chlordiazepoxide (Librium) 50 mg PO Q6H KATTY; Taper Stop: 04/01/19 19:59 Last Admin: 03/30/19 06:06 Dose: 50 mg Dicyclomine HCl (Bentyl) 20 mg PO Q6H PRN PRN PRN Reason: abdominal discomfort Last Admin: 03/30/19 06:10 Dose: 20 mg Escitalopram Oxalate (Lexapro) 20 mg PO DAILY KATTY Famotidine (Pepcid) 20 mg PO BID [facility] Last Admin: 03/29/19 20:48 Dose: 20 mg [facility] ([facility] Acid) [facility] Stop: 03/31/19 08:01 Last Admin: 03/29/19 18:17 Dose: 1 mg Hydroxyzine Pamoate (Vistaril Pamoate Capsule) 50 mg PO Q6H PRN PRN PRN Reason: Mild Anxiety (score 1/3) Last Admin: 03/30/19 00:03 Dose: 50 mg Ibuprofen (Motrin) 600 mg PO Q8H PRN PRN PRN Reason: Mild-Moderate Pain (1-5/10) Last Admin: 03/30/19 00:02 Dose: 600 mg Loperamide HCl (Imodium) 2 - 4 mg PO UD PRN PRN Reason: LOOSE STOOLS Lorazepam (Ativan) 1 mg IV Q2H PRN PRN PRN Reason: Severe Anxiety Last Admin: 03/30/19 02:42 Dose: 1 mg Lorazepam (Ativan) 2 mg IV X1 PRN PRN Reason: Seizure Methocarbamol (Methocarbamol) 750 mg PO Q6H PRN PRN PRN Reason: Muscle Aches Last Admin: 03/30/19 06:10 Dose: 750 mg Multivitamins (Multivitamin) [facility] Ondansetron HCl (Zofran) 4 mg IV Q8H PRN PRN PRN Reason: NAUSEA/VOMITING Last Admin: 03/29/19 20:48 Dose: 4 mg Ondansetron HCl (Zofran Odt) 4 mg PO Q6H PRN PRN PRN Reason: NAUSEA Last Admin: 03/30/19 02:42 Dose: 4 mg Quetiapine Fumarate (Seroquel) 25 mg PO Q6H PRN PRN PRN Reason: AGITATION Last Admin: 03/30/19 06:10 Dose: 25 mg Senna (Senokot) 1 tablet PO QHS PRN PRN PRN Reason: Constipation Sodium Chloride () 5 - 15 ml IV UD PRN PRN Reason: SALINE FLUSH Last Admin: 03/30/19 02:42 Dose: 10 ml Thiamine HCl (Vitamin B1) [facility] Stop: 03/31/19 08:01 Last Admin: 03/29/19 18:17 Dose: 100 mg Trazodone HCl (Desyrel) 50 mg PO QHS [facility] Last Admin: 03/29/19 22:38 Dose: 50 mg Medical Necessity - Tobacco Use Smoking Status: Never smoker Assessment/Plan All Active Problems Alcohol withdrawal (Acute) Alcohol dependence (Acute) Acute alcohol withdrawal (Acute) Patient is a 33-year-old gentleman with past medical history segment for chronic alcohol dependence admitted with acute alcohol withdrawal 1. Acute alcohol withdrawal patient has been admitted to regular nursing floor currently being managed with Librium taper 2. Depression with anxiety patient is on SSRI 3. Alcohol dependence counseled on cessation 4. DVT prophylaxis low risk did encourage early ambulation Active Medications Acetaminophen (Tylenol) 650 mg PO Q6H PRN PRN PRN Reason: Non-cardiac pain (mod-severe) Last Admin: 03/30/19 06:10 Dose: 650 mg Al Hydroxide/Mg Hydroxide (Mylanta Ii) 30 ml PO Q6H PRN PRN PRN Reason: dyspesia Bisacodyl (Dulcolax) 10 mg RECTAL DAILY PRN PRN Reason: Constipation Chlordiazepoxide (Librium) 50 mg PO Q6H [facility]; Taper Stop: 04/01/19 19:59 Last Admin: 03/30/19 06:06 Dose: 50 mg Dicyclomine HCl (Bentyl) 20 mg PO Q6H PRN PRN PRN Reason: abdominal discomfort Last Admin: 03/30/19 06:10 Dose: 20 mg Escitalopram Oxalate (Lexapro) 20 mg PO DAILY [facility] Famotidine (Pepcid) 20 mg PO BID [facility] Last Admin: 03/29/19 20:48 Dose: 20 mg Folic Acid (Folic Acid) [facility] Stop: 03/31/19 08:01 Last Admin: 03/29/19 18:17 Dose: 1 mg Hydroxyzine Pamoate (Vistaril Pamoate Capsule) 50 mg PO Q6H PRN PRN PRN Reason: Mild Anxiety (score 1/3) Last Admin: 03/30/19 00:03 Dose: 50 mg Ibuprofen (Motrin) 600 mg PO Q8H PRN PRN PRN Reason: Mild-Moderate Pain (1-5/10) Last Admin: 03/30/19 00:02 Dose: 600 mg Loperamide HCl (Imodium) 2 - 4 mg PO UD PRN PRN Reason: LOOSE STOOLS Lorazepam (Ativan) 1 mg IV Q2H PRN PRN PRN Reason: Severe Anxiety Last Admin: 03/30/19 02:42 Dose: 1 mg Lorazepam (Ativan) 2 mg IV X1 PRN PRN Reason: Seizure Methocarbamol (Methocarbamol) 750 mg PO Q6H PRN PRN PRN Reason: Muscle Aches Last Admin: 03/30/19 06:10 Dose: 750 mg Multivitamins (Multivitamin) [facility] Ondansetron HCl (Zofran) 4 mg IV Q8H PRN PRN PRN Reason: NAUSEA/VOMITING Last Admin: 03/29/19 20:48 Dose: 4 mg Ondansetron HCl (Zofran Odt) 4 mg PO Q6H PRN PRN PRN Reason: NAUSEA Last Admin: 03/30/19 02:42 Dose: 4 mg Quetiapine Fumarate (Seroquel) 25 mg PO Q6H PRN PRN PRN Reason: AGITATION Last Admin: 03/30/19 06:10 Dose: 25 mg Senna (Senokot) 1 tablet PO QHS PRN PRN PRN Reason: Constipation Sodium Chloride () 5 - 15 ml IV UD PRN PRN Reason: SALINE FLUSH Last Admin: 03/30/19 02:42 Dose: 10 ml Thiamine HCl (Vitamin B1) [facility] Stop: 03/31/19 08:01 Last Admin: 03/29/19 18:17 Dose: 100 mg Trazodone HCl (Desyrel) 50 mg PO QHS [facility] Last Admin: 03/29/19 22:38 Dose: 50 mg Code Visit Inpatient E&M: 63169 Subs Hosp L2
[2019-03-30] MEDS: Multivitamins,Therapeutic Tablet 1 TABLET PO (11:20)
[2019-03-30] MEDS: Folic Acid 1 MG Tablet PO (11:20)
[2019-03-30] MEDS: Thiamine Hydrochloride 100 MG Tablet PO (11:20)
[2019-03-30] MEDS: Famotidine 20 MG Tablet PO ×2 (11:20→20:36)
[2019-03-30] MEDS: Escitalopram Oxalate 20 MG Tablet PO (11:24)
[2019-03-30 13:50] VITALS: BP 137/70; PULSE 77; RESP 18; TEMP 36.7; O2SAT 98
[2019-03-30] MEDS: Loperamide 2 MG Capsule PO (13:58)
--- NOTE | 2019-03-30 15:06 | NURSING ---
pt refused am ciwa/etoh assessment, he was sleeping soundly and did not want to awaken to complete
[2019-03-30 17:33] VITALS: BP 140/80; PULSE 82; RESP 20; TEMP 37.2; O2SAT 99
[2019-03-30 19:39] VITALS: BP 151/89; PULSE 87; RESP 18; TEMP 37; O2SAT 100
[2019-03-31 04:00] VITALS: BP 125/57; PULSE 97; RESP 18; TEMP 36.9; O2SAT 100
[2019-03-31] MEDS: chlordiazePOXIDE 25 MG Capsule PO ×3 (04:17→19:50)
[2019-03-31] MEDS: hydrOXYzine PAM 25 MG Capsule 50 MG PO ×2 (04:17→12:18)
--- NOTE | 2019-03-31 07:27 | PN_ITS ---
Patient Problems: Active and Suspected Problems Alcohol withdrawal (Acute) Alcohol dependence (Acute) Subjective: Patient seen did express a lot of anxiety. Per nursing staff patient has been requesting for Ativan [id number]. Did explain to patient that Ativan will be reserved only for breakthrough seizure and he will be maintained on the Librium for his withdrawal symptoms Objective: GENERAL: cooperative HEENT: Atraumatic; moist oral mucosa EYES; Anicteric, Normal Conjunctiva NECK; supple, normal thyroid, RESPIRATORY: Diminished to auscultation CARDIOVASCULAR: Regular S1 S2, GI: soft, non-tender, normoactive bowel sounds, : No Renal angle tenderness; EXTREMITIES: No edema, no clubbing, MUSCULOSKELETAL: No Joint Tenderness; NEURO: Awake; no lateralizing signs. SKIN: No Rash PSYCH; flat affect Vitals/I&O's: Vital Signs Temp Pulse Resp BP Pulse Ox 98.4 F 97 18 125/57 H 100 03/31/19 04:00 03/31/19 04:00 03/31/19 04:00 03/31/19 04:00 03/31/19 04:00 Oxygen Delivery Method Room Air Weight: 105.778 kg Body Mass Index (BMI) 30.7 Intake and Output for Last 24 Hours 03/29/19 03/30/19 03/31/19 23:59 23:59 23:59 Intake Total 3663 / 3663 Balance 3663 / 3663 Current Medications Acetaminophen (Tylenol) 650 mg PO Q6H PRN PRN PRN Reason: Non-cardiac pain (mod-severe) Last Admin: 03/30/19 06:10 Dose: 650 mg Al Hydroxide/Mg Hydroxide (Mylanta Ii) 30 ml PO Q6H PRN PRN PRN Reason: dyspesia Bisacodyl (Dulcolax) 10 mg RECTAL DAILY PRN PRN Reason: Constipation Chlordiazepoxide (Librium) 50 mg PO Q8H KATTY; Taper Stop: 04/01/19 19:59 Last Admin: 03/31/19 04:17 Dose: 50 mg Dicyclomine HCl (Bentyl) 20 mg PO Q6H PRN PRN PRN Reason: abdominal discomfort Last Admin: 03/30/19 06:10 Dose: 20 mg Escitalopram Oxalate (Lexapro) 20 mg PO DAILY KATTY Last Admin: 03/30/19 11:24 Dose: 20 mg Famotidine (Pepcid) 20 mg PO BID [facility] Last Admin: 03/30/19 20:36 Dose: 20 mg Folic Acid (Folic Acid) [facility] Stop: 03/31/19 08:01 Last Admin: 03/30/19 11:20 Dose: 1 mg Hydroxyzine Pamoate (Vistaril Pamoate Capsule) 50 mg PO Q6H PRN PRN PRN Reason: Mild Anxiety (score 1/3) Last Admin: 03/31/19 04:17 Dose: 50 mg Ibuprofen (Motrin) 600 mg PO Q8H PRN PRN PRN Reason: Mild-Moderate Pain (1-5/10) Last Admin: 03/30/19 19:31 Dose: 600 mg Loperamide HCl (Imodium) 2 - 4 mg PO UD PRN PRN Reason: LOOSE STOOLS Last Admin: 03/30/19 13:58 Dose: 4 mg Lorazepam (Ativan) 1 mg IV Q2H PRN PRN PRN Reason: Severe Anxiety Last Admin: 03/30/19 20:34 Dose: 1 mg Lorazepam (Ativan) 2 mg IV X1 PRN PRN Reason: Seizure Methocarbamol (Methocarbamol) 750 mg PO Q6H PRN PRN PRN Reason: Muscle Aches Last Admin: 03/30/19 13:58 Dose: 750 mg Multivitamins (Multivitamin) [facility] Last Admin: 03/30/19 11:20 Dose: 1 tablet Ondansetron HCl (Zofran) 4 mg IV Q8H PRN PRN PRN Reason: NAUSEA/VOMITING Last Admin: 03/29/19 20:48 Dose: 4 mg Ondansetron HCl (Zofran Odt) 4 mg PO Q6H PRN PRN PRN Reason: NAUSEA Last Admin: 03/30/19 02:42 Dose: 4 mg Quetiapine Fumarate (Seroquel) 25 mg PO Q6H PRN PRN PRN Reason: AGITATION Last Admin: 03/30/19 17:42 Dose: 25 mg Senna (Senokot) 1 tablet PO QHS PRN PRN PRN Reason: Constipation Sodium Chloride () 5 - 15 ml IV UD PRN PRN Reason: SALINE FLUSH Last Admin: 03/30/19 02:42 Dose: 10 ml Thiamine HCl (Vitamin B1) [facility] mg [facility] Stop: 03/31/19 08:01 Last Admin: 03/30/19 11:20 Dose: 100 mg Trazodone HCl (Desyrel) 50 mg PO QHS [facility] Last Admin: 03/30/19 22:30 Dose: Not Given Medical Necessity - Tobacco Use Smoking Status: Never smoker Assessment/Plan All Active Problems Alcohol withdrawal (Acute) Alcohol dependence (Acute) Acute alcohol withdrawal (Acute) Patient is a 33-year-old gentleman with past medical history segment for chronic alcohol dependence admitted with acute alcohol withdrawal 1. Acute alcohol withdrawal patient has been admitted to regular nursing floor currently being managed with Librium taper. 2. Depression with anxiety patient is on SSRI but did encourage patient to follow-up with PCP for subsequent care including possible adjustment of medications. 3. Alcohol dependence counseled on cessation 4. DVT prophylaxis low risk did encourage early ambulation Disposition: Home possibly on 04/01/2019 if medically stable Code Visit Inpatient E&M: [id number] Subs Hosp L2
[2019-03-31 07:47] VITALS: BP 132/84; PULSE 75; RESP 16; TEMP 36.8; O2SAT 99
[2019-03-31] MEDS: Escitalopram Oxalate 20 MG Tablet PO (07:52)
[2019-03-31] MEDS: Multivitamins,Therapeutic Tablet 1 TABLET PO (07:52)
[2019-03-31] MEDS: Folic Acid 1 MG Tablet PO (07:52)
[2019-03-31] MEDS: Famotidine 20 MG Tablet PO (07:52)
[2019-03-31] MEDS: Thiamine Hydrochloride 100 MG Tablet PO (07:53)
[2019-03-31] MEDS: Dicyclomine 10 MG Capsule 20 MG PO ×2 (07:58→15:42)
[2019-03-31] MEDS: Ibuprofen 600 MG Tablet PO (07:58)
[2019-03-31] MEDS: Methocarbamol 750 MG Tablet PO ×2 (07:58→15:42)
[2019-03-31] MEDS: QUEtiapine 25 MG Tablet PO ×2 (07:59→19:50)
[2019-03-31 08:32] VITALS: PULSE 80
[2019-03-31 12:07] VITALS: BP 131/85; PULSE 65; RESP 18; TEMP 36.7; O2SAT 99
[2019-03-31] MEDS: Acetaminophen 325 MG Tablet 650 MG PO (12:17)
[2019-03-31] MEDS: 0.9% NaCl Peripheral Flush Adult/Peds IV (12:18)
[2019-03-31 15:25] VITALS: BP 127/76; PULSE 96; RESP 16; TEMP 36.9; O2SAT 97
[2019-03-31] MEDS: Ondansetron ODT 4 MG Tablet PO (15:42)
--- NOTE | 2019-03-31 20:00 | NURSING ---
Pt requesting Ativan after medication was d/c earlier this shift. Requested this nurse call MD to ask for Ativan. Dr. Calles notified, no new orders at this time. Pt notified. Pt encouraged to take other PRN medication for withdrawal/anxiety but refused. Pt states, the only thing that works is Ativan, I have everything else at home. Pt signed AMA paper. IV removed and pt left ambulatory off floor.
== END 2019-03-31 20:28 | disposition left against medical advice (07) | DRG 770 ==
LOC: ED 16:51 → MS3 17:30
PROVIDERS: Admitting Provider Family Medicine; Emergency Provider Emergency Medicine; Visit Provider Internal Medicine
DX: F10.239 Alcohol dependence with withdrawal, unspecified (principal); K21.9 Gastro-esophageal reflux disease without esophagitis; F41.8 Other specified anxiety disorders
CPT/HCPCS: 80053; 80320; 82962; 85025; 85610; 99283; J7030; A4216; G0480; J2405

== ENCOUNTER 2019-03-31 21:41 | Emergency (ER) | payer MEDICAID, SELFPAY ==
[2019-03-31 21:41] VITALS: BP 155/95; PULSE 89; RESP 18; TEMP 36.9; O2SAT 99; BMI 30.3
[2019-03-31 22:16] VITALS: BP 136/101; PULSE 76; RESP 18
--- NOTE | 2019-03-31 22:37 | ED.VISSUMM ---
- ER Visit Summary Date of Service: 03/31/19 Chief Complaint: Alcohol problems History of Present Illness: The patient is a 33 M who asks me for Ativan. He is upstairs in detox and they will not give me Ativan. He is afraid of having a seizure. He has no other complaints. He feels extremely anxious. Physical Examination: Not appear in acute distress. He is laying in bed comfortable. His heart rate is 70 there are no tremors. Moist mucous membranes, no obvious facial deformity No C-spine tenderness supple neck. Regular rate and rhythm without any obvious murmurs Clear lungs bilaterally speaking in full sentences without any obvious respiratory distress Abdomen soft and nontender no guarding or rebound Moves all extremities without any difficulty or pain. Skin does not show any obvious rashes or lesions, no trauma. Alert oriented ?3 with no gross focal deficit Emergency Department Course and Treatment: Patient appears well, there are no signs or symptoms of withdrawal, his heart rate is 70 he is lucid and coherent. I told him I will not give him Ativan. I will try to get him back to detox if I can. He is otherwise discharged from the emergency department Impression: Alcohol problems This note was generated with [email or web address] dictation software. It may contain incorrect words, spelling, and punctuation that were not noted in review of the chart prior to signing ED Disposition - Plan for ED Patient: Disposition: Home or Assisted Living Instructions: ED Alcohol Abuse Referrals: [facility],Out of [Primary Care Provider] - 3-5 Days
[2019-03-31 22:43] VITALS: BP 137/88; PULSE 81; RESP 18; O2SAT 96
== END 2019-03-31 22:44 | disposition home or self-care (01) ==
PROVIDERS: Emergency Provider Emergency Medicine
DX: F10.239 Alcohol dependence with withdrawal, unspecified (principal); Y90.9 Presence of alcohol in blood, level not specified
CPT/HCPCS: 99282

== ENCOUNTER 2023-09-01 12:29 | Outpatient (RCR) | payer SELFPAY | END 2023-09-01 12:29 | disposition home or self-care (01) | LOC: SP 12:29 | PROVIDERS: Visit Provider Internal Medicine | DX: R13.12 Dysphagia, oropharyngeal phase (principal) ==